=== PATIENT | male | born 1955 | race Caucasian/White ===

== ENCOUNTER 2016-10-27 08:01 | Inpatient (IN) | payer BC, MEDICARE ==
[2016-10-27] MEDS ORDERED: Albuterol/Ipratropium 3.0-0.5 MG/3 ML Neb Soln ONE (09:43)
[2016-10-27] MEDS ORDERED: Sodium Chloride 0.9% 10 ML Syringe FLUSH PRN (10:14)
[2016-10-27] MEDS: methylPREDNISolone Sodium Succinate 125 MG/2 ML SDV IVPUSH SCH (10:54)
[2016-10-27] MEDS: cefTRIAXone 1 GM Vial IVPUSH SCH (11:02)
[2016-10-27] MEDS: Azithromycin 500 MG in Sodium Chloride 0.9% 250 ML IV SCH (11:04)
[2016-10-27] MEDS ORDERED: Meclizine 12.5 MG Tab PO PRN (13:09)
[2016-10-27] MEDS ORDERED: Acetaminophen/oxyCODONE 325-5 MG Tab PO PRN (13:09)
[2016-10-27] MEDS ORDERED: Albuterol 8 GM Inhaler INH PRN (13:15)
[2016-10-27] MEDS: Albuterol/Ipratropium 3.0-0.5 MG/3 ML Neb Soln NEB SCH ×3 (13:34→20:40)
[2016-10-27] MEDS ORDERED: Insulin Aspart 100 Units/ML 3 ML Pen SUBCUT ONE ×2 (17:53→20:26)
[2016-10-27] MEDS: POTASSIUM CHL PO SCH (18:14)
[2016-10-27] MEDS: Insuln Aspart Prot/Insulin Aspart 100 Units/ML 3 ML FlexPen SUBCUT SCH (18:16)
[2016-10-27] MEDS: Simvastatin 20 MG Tab PO SCH (20:00)
[2016-10-27] MEDS: Pramipexole 0.5 MG Tab PO SCH (20:06)
[2016-10-27] MEDS: Metoprolol Succinate 25 MG Tab.ER PO SCH (20:06)
[2016-10-27] MEDS: Insulin Aspart 100 Units/ML 3 ML Pen SUBCUT SCH (20:37)
[2016-10-27] MEDS: Acetaminophen 325 MG Tab PO PRN (22:19)
[2016-10-28] MEDS: Acetaminophen 325 MG Tab PO PRN (06:16)
[2016-10-28] MEDS ORDERED: METOLAZONE 2.5 MG PO SCH (07:30)
[2016-10-28] MEDS: Insuln Aspart Prot/Insulin Aspart 100 Units/ML 3 ML FlexPen SUBCUT SCH ×2 (07:46→17:50)
[2016-10-28] MEDS: Aspirin 325 MG Tab.EC PO SCH (07:52)
[2016-10-28] MEDS: Amiodarone 200 MG Tab PO SCH (07:52)
[2016-10-28] MEDS: POTASSIUM CHL PO SCH (07:52)
[2016-10-28] MEDS: Metoprolol Succinate 25 MG Tab.ER PO SCH ×2 (07:52→19:25)
[2016-10-28] MEDS ORDERED: BUMETANIDE 2 MG PO SCH ×2 (08:00)
[2016-10-28] MEDS ORDERED: CANDESARTAN 8 MG PO SCH (08:00)
[2016-10-28] MEDS ORDERED: metFORMIN 500 MG Tab PO SCH (08:00)
[2016-10-28] MEDS: methylPREDNISolone Sodium Succinate 125 MG/2 ML SDV IVPUSH SCH (08:02)
[2016-10-28] MEDS: cefTRIAXone 1 GM Vial IVPUSH SCH (08:03)
[2016-10-28] MEDS: Azithromycin 500 MG in Sodium Chloride 0.9% 250 ML IV SCH (08:16)
[2016-10-28] MEDS ORDERED: Insulin Aspart 100 Units/ML 3 ML Pen SUBCUT ONE ×4 (08:32→20:41)
--- NOTE | 2016-10-28 08:53 | PCM.PN ---
- General Info Date of Service: 10/28/16 Admission Dx/Problem (Free Text): Bronchitis Functional Status: Reports: pain controlled - Review of Systems General: Reports: fever, fatigue, malaise. Denies: weakness HEENT: Denies: ear pain, sinus congestion, rhinitis Pulmonary: Reports: shortness of breath, cough, wheezing Cardiovascular: Reports: edema. Denies: chest pain, lightheadedness Gastrointestinal: Denies: Abdominal pain, Constipation, Diarrhea, Nausea, Vomiting Genitourinary: Reports: no symptoms Musculoskeletal: Reports: leg pain Skin: Reports: no symptoms Neurological: Reports: no symptoms - Patient Data Vitals - most recent: Last Vital Signs Temp 98 F 10/28/16 07:32 Pulse 57 L 10/28/16 07:52 Resp 20 10/28/16 07:32 BP 136/77 10/28/16 07:52 Pulse Ox 93 L 10/28/16 07:32 Weight - most recent: 325 lb 9.964 oz I&O - last 24 hours: Intake & Output 10/27/16 10/28/16 10/28/16 22:59 06:59 14:59 Intake Total 1882 1550 Output Total 4000 2500 Balance -2118 -950 Lab Results last 24 hrs: Laboratory Results - last 24 hr 10/27/16 10/27/16 10/27/16 Range/Units 09:50 11:55 16:00 PT (9.7-12.3) SEC INR (0.92-1.18) D-Dimer, Quantitative 0.33 (0.00-0.50) POC Glucose 217 H (75-105) mg/dl Lactate Dehydrogenase (100-190) U/L Creatine Kinase 428 H (35-232) U/L Troponin I 0.066 H (0.00-0.06) ng/mL 10/27/16 10/27/16 10/28/16 Range/Units 17:28 20:13 07:25 PT (9.7-12.3) SEC INR (0.92-1.18) D-Dimer, Quantitative (0.00-0.50) POC Glucose > 500 H* > 500 H* (75-105) mg/dl Lactate Dehydrogenase 299 H (100-190) U/L Creatine Kinase 558 H (35-232) U/L Troponin I 0.114 H (0.00-0.06) ng/mL 10/28/16 10/28/16 Range/Units 07:25 07:30 PT 19.8 H (9.7-12.3) SEC INR 1.84 H (0.92-1.18) D-Dimer, Quantitative (0.00-0.50) POC Glucose 424 H* (75-105) mg/dl Lactate Dehydrogenase (100-190) U/L Creatine Kinase (35-232) U/L Troponin I (0.00-0.06) ng/mL Elijah Results last 24 hrs: Microbiology 10/27/16 13:25 Gram Stain - Final Sputum - Expectorated 10/27/16 08:08 Influenza Type A Antigen Screen - Final Nasal, Unspecified NEGATIVE INFLUENZA A VIRUS AG Influenza Type B Antigen Screen - Final NEGATIVE INFLUENZA B VIRUS AG Med Orders - Current: Current Medications Acetaminophen (Tylenol) 650 mg PO Q4H PRN PRN Reason: Pain (Mild 1-3)/fever Last Admin: 10/28/16 06:16 Dose: 650 mg Albuterol (Ventolin Hfa) 0 gm INH Q6H PRN PRN Reason: DYSPNEA Albuterol/Ipratropium (Duoneb 3.0-0.5 Mg/3 Ml) 3 ml NEB QIDRT [facility] [place] Last Admin: 10/27/16 20:40 Dose: 3 ml Amiodarone HCl (Cordarone) 200 mg PO DAILY [facility] [place] Last Admin: 10/28/16 07:52 Dose: 200 mg Aspirin (Ecotrin) 325 mg PO DAILY [facility] [place] Last Admin: 10/28/16 07:52 Dose: 325 mg Ceftriaxone Sodium (Rocephin) 1 gm IVPUSH Q24H [facility] [place] Last Admin: 10/28/16 08:03 Dose: 1 gm Azithromycin 500 mg/ Sodium (Chloride) 250 mls @ 250 mls/hr IV Q24H [facility] [place] Last Admin: 10/28/16 08:16 Dose: 250 mls/hr Insulin Aspart (Novolog Mix 70-30) 30 - 35 unit SUBCUT WITHDINNER [facility] [place] Last Admin: 10/27/16 18:16 Dose: 35 unit Insulin Aspart (Novolog Mix 70-30) 60 - 65 unit SUBCUT WITHBREAKFAST [facility] [place] Last Admin: 10/28/16 07:46 Dose: 65 units Insulin Aspart (Novolog) 0 unit SUBCUT WITHMEALSANDBED [facility] [place] PRN Reason: Protocol Last Admin: 10/27/16 20:37 Dose: Not Given Meclizine HCl (Antivert) 25 mg PO QID PRN PRN Reason: Dizziness Metformin HCl (Glucophage) 1,000 mg PO DAILY [facility] [place] Last Admin: 10/28/16 07:52 Dose: 1,000 mg Methylprednisolone Sodium Succinate (Solu-Medrol) 62.5 mg IVPUSH Q24H [facility] [place] Last Admin: 10/28/16 08:02 Dose: 62.5 mg Metoprolol Succinate (Toprol Xl) 12.5 mg PO QAM [facility] [place] Last Admin: 10/28/16 07:52 Dose: 12.5 mg Metoprolol Succinate (Toprol Xl) 25 mg PO BEDTIME [facility] [place] Last Admin: 10/27/16 20:06 Dose: 25 mg Ptom-Candesartan 8mg (Tab) 0 mg PO DAILY [facility] [place] Last Admin: 10/28/16 07:52 Dose: 4 mg Potassium Chl Er (20meq Tab) 40 meq PO BIDMEALS [facility] [place] Last Admin: 10/28/16 07:52 Dose: 40 meq [facility] ([facility]) [facility] Ptom-Warfarin 7.5mg (Tab) 1 each PO SUSA [facility] [place] Oxycodone/Acetaminophen (Percocet 325-5 Mg) 1 tab PO Q6H PRN PRN Reason: Pain Pramipexole Dihydrochloride (Mirapex) 3 mg PO BEDTIME [facility] [place] Last Admin: 10/27/16 20:06 Dose: 3 mg Simvastatin (Zocor) 20 mg PO BEDTIME [facility] [place] Last Admin: 10/27/16 20:00 Dose: 20 mg Sodium Chloride (Saline Flush) 10 ml FLUSH ASDIRECTED PRN PRN Reason: Keep Vein Open Discontinued Medications Albuterol/Ipratropium (Duoneb 3.0-0.5 Mg/3 Ml) Confirm Administered Dose 3 ml .ROUTE .STK-MED ONE Stop: 10/27/16 09:44 Last Admin: 10/27/16 10:00 Dose: 3 ml Insulin Aspart (Novolog) 8 unit SUBCUT ONETIME ONE Stop: 10/27/16 17:54 Last Admin: 10/27/16 18:16 Dose: 8 unit Insulin Aspart (Novolog) 15 unit SUBCUT ONETIME ONE Stop: 10/27/16 20:27 Last Admin: 10/27/16 20:38 Dose: 15 units Insulin Aspart (Novolog) 4 unit SUBCUT ONETIME ONE Stop: 10/28/16 08:33 - Exam General: alert, oriented HEENT: Mucous membr. moist/pink Neck: supple Lungs: Decreased breath sounds, Rhonchi, Wheezing Abdomen: bowel sounds present, soft, no tenderness Skin: warm, dry Neurological: no new focal deficit - Problem List & Annotations (1) Bronchitis SNOMED Code(s): 09884900 Code(s): J40 - BRONCHITIS, NOT SPECIFIED ACUTE OR CHRONIC Status: Acute Priority: High Current Visit: No Onset Date: 01/02/16 Annotation/ Comment:: continued sx - Problem List Review Problem List Initiated/Reviewed/Updated: Yes - My Orders Last 24 Hours: My Active Orders 10/28/16 08:30 EKG 12 Lead [EK] Routine - Assessment Assessment:: Bronchitis - Plan Plan:: Patient's states is feeling somewhat better today. Better air movement today. Oxygen sats still continue to drop with ambulation. Patient does continue to have congested cough and audible wheezing. Blood sugars are high, on Solu Medrol daily. Is currently on medium scale insulin per sliding scale in addition to scheduled insulin. Troponins indeterminate. Will obtain EKG this am. Adjust sliding scale to high dose. Change to inpatient status due to ongoing hypoxia and chest congestion. Continue IV antibiotics, steroids, respiratory treatments. Reevaluate in am.
[2016-10-28] MEDS: Albuterol/Ipratropium 3.0-0.5 MG/3 ML Neb Soln NEB SCH ×4 (09:19→20:45)
[2016-10-28] MEDS: Insulin Aspart 100 Units/ML 3 ML Pen SUBCUT SCH ×4 (09:36→20:45)
[2016-10-28] MEDS: Bumetanide 1 MG Tab PO SCH ×2 (10:07→16:32)
[2016-10-28] MEDS: Warfarin 5 MG Tab PO SCH (11:59)
[2016-10-28] MEDS ORDERED: WARFARIN 10 MG PO SCH (12:00)
[2016-10-28] MEDS: Potassium Chloride 10 MEQ Tab.ER PO SCH (17:35)
[2016-10-28] MEDS: Pramipexole 0.5 MG Tab PO SCH (19:23)
[2016-10-28] MEDS: Simvastatin 20 MG Tab PO SCH (19:25)
[2016-10-29] MEDS ORDERED: Losartan 25 MG Tab PO SCH (08:00)
[2016-10-29] MEDS ORDERED: metFORMIN 500 MG Tab.ER PO SCH (08:00)
[2016-10-29] MEDS: Bumetanide 1 MG Tab PO SCH ×2 (08:10→16:43)
[2016-10-29] MEDS: Aspirin 325 MG Tab.EC PO SCH (08:11)
[2016-10-29] MEDS: Metoprolol Succinate 25 MG Tab.ER PO SCH (08:11)
[2016-10-29] MEDS: Amiodarone 200 MG Tab PO SCH (08:12)
[2016-10-29] MEDS: Potassium Chloride 10 MEQ Tab.ER PO SCH ×2 (08:12→16:43)
[2016-10-29] MEDS: cefTRIAXone 1 GM Vial IVPUSH SCH (08:13)
[2016-10-29] MEDS: methylPREDNISolone Sodium Succinate 125 MG/2 ML SDV IVPUSH SCH (08:13)
[2016-10-29] MEDS: Insulin Aspart 100 Units/ML 3 ML Pen SUBCUT SCH ×2 (08:16→12:12)
[2016-10-29] MEDS: Insuln Aspart Prot/Insulin Aspart 100 Units/ML 3 ML FlexPen SUBCUT SCH (08:17)
[2016-10-29] MEDS: Azithromycin 500 MG in Sodium Chloride 0.9% 250 ML IV SCH (08:20)
[2016-10-29] MEDS: Albuterol/Ipratropium 3.0-0.5 MG/3 ML Neb Soln NEB SCH ×3 (09:18→16:09)
[2016-10-29] MEDS: Warfarin 5 MG Tab PO SCH (12:13)
[2016-10-29 16:08] VITALS: BP 127/76
[2016-10-30] MEDS ORDERED: Metolazone 5 MG Tab PO SCH (07:30)
[2016-10-30] MEDS ORDERED: METOLAZONE 2.5 MG PO SCH (07:30)
--- NOTE | 2016-10-30 07:55 | PCM.DCSUM1 ---
Discharge Summary - Hospital Course Free Text/Narrative:: Patient admitted by Adeola Emiliano with Bronchitis. Lung sounds did have considerable rhonchi and wheezing on admission. Oxygen saturation in the low 80s on room air. Does not typically use oxygen at home although admits he does have shortness of breath with exertion related to his CHF. Initial lab work showed a WBC of 6.6, CRP of 0.9. D-dimer was negative. Troponin negative. Chest xray did show pulmonary congestion. Admitted and started on IV Rocephin, Solu Medrol and nebulizer treatments. - Discharge Data Discharge Date: 10/29/16 Discharge Disposition: Home, Self-Care 01 Condition: Fair - Discharge Diagnosis/Problem(s) (1) Bronchitis SNOMED Code(s): 91647571 ICD Code: J40 - BRONCHITIS, NOT SPECIFIED ACUTE OR CHRONIC Status: Acute Priority: High Onset Date: 01/02/16 Problem Details: continued sx - Patient Summary/Data Complications: none Hospital Course: Patient did have good overall improvement of his lungs during admission. Cardiac work up stable, troponin indeterminate. Tolerating activity. Able to wean off oxygen today. Lung sound now show fine wheezing, no rhonchi, much better air movement. Blood sugars were a concern during hospitalization due to steroids. Was given additional Novolog by sliding scale. Will send him home on Ceftin and 3 more days of prednisone. - Patient Instructions Diet: Low Sodium, Diabetic Diet Activity: As Tolerated - Discharge Plan Prescriptions/Med Rec: predniSONE [Prednisone] 20 mg PO DAILY #6 tablet Home Medications: Home Meds Pramipexole Di-HCl [Mirapex ER] 3 mg PO BEDTIME 12/22/13 [History] Simvastatin [Zocor] 20 mg PO DAILY 12/22/13 [History] Potassium Chloride 40 meq PO BID 02/01/14 [History] Aspirin 325 mg PO DAILY 04/04/14 [History] Amiodarone [Cordarone] 200 mg PO DAILY 12/19/14 [History] Warfarin [Coumadin] 7.5 mg PO SUSA 12/19/14 [History] Warfarin [Coumadin] 10 mg PO MOTUWETHFR 12/19/14 [History] Bumetanide [Bumex] 4 mg PO BID 01/26/15 [History] Candesartan [Atacand] 4 mg PO DAILY 01/26/15 [History] Albuterol Sulfate [Proair Hfa] 2 puff INH Q6H 11/24/15 [History] Metolazone [Zaroxolyn] 2.5 mg PO Q72H 11/24/15 [History] Metoprolol Succinate [Toprol XL] 12.5 mg PO QAM 11/24/15 [History] Metoprolol Succinate [Toprol XL] 25 mg PO BEDTIME 11/24/15 [History] oxyCODONE HCl/Acetaminophen [oxyCODONE-Acetaminophen 5-325] 1 tab PO Q6H PRN 11/05 [History] Cefuroxime [Ceftin] 500 mg PO BID 10/27/16 [History] Insuln Asp Prot/Insulin Aspart [NovoLOG Mix 70-30] 30 - 35 units SUBCUT WITHDINNER 10/27/16 [History] Insuln Asp Prot/Insulin Aspart [NovoLOG Mix 70-30] 60 - 65 units SUBCUT WITHBREAKFAST 10/27/16 [History] Meclizine [Antivert] 25 mg PO QID PRN 10/27/16 [History] metFORMIN HCl [Metformin HCl] 1,000 mg PO DAILY 10/27/16 [History] predniSONE [Prednisone] 20 mg PO DAILY #6 tablet 10/29/16 [Rx] Referrals: Elmer Pandey MD [ED Physician] - (Follow up with Dr. Pandey in 1 week.) - Discharge Summary/Plan Comment DC Time >30 min.: No Discharge Summary/Plan Comment: Discharged home on Ceftin. Prednisone 20 mg 2 tabs daily for 3 more days. Will need to increase his insulin at home as well based on his blood sugars. He will follow up with Dr. Pandey in a week. - General Info Date of Service: 10/29/16 Admission Dx/Problem (Free Text: Bronchitis Functional Status: Reports: pain controlled, tolerating diet, ambulating - Review of Systems General: Reports: fatigue. Denies: fever, weakness HEENT: Denies: ear pain, sinus congestion, sore throat, rhinitis Pulmonary: Reports: shortness of breath, cough, wheezing Cardiovascular: Reports: edema. Denies: chest pain, lightheadedness Gastrointestinal: Denies: Abdominal pain, Diarrhea, Nausea, Vomiting Genitourinary: Reports: no symptoms Musculoskeletal: Reports: back pain Skin: Reports: no symptoms Neurological: Reports: other (neuropathy in feet but stable and chronic) - Patient Data Vitals - Most Recent: Last Vital Signs Temp 97.1 F 10/29/16 16:00 Pulse 74 10/29/16 16:00 Resp 20 10/29/16 16:00 BP 127/76 10/29/16 16:00 Pulse Ox 96 10/29/16 16:00 Weight - Most Recent: 324 lb 4.48 oz Lab Results - Last 24 hrs: Laboratory Results - last 24 hr 10/29/16 10/29/16 Range/Units 07:47 12:00 PT 24.6 H (9.7-12.3) SEC INR 2.28 H (0.92-1.18) POC Glucose 401 H* (75-105) mg/dl PASCALE Results - Last 24 hrs: Microbiology 10/27/16 13:25 Gram Stain - Final Sputum - Expectorated Sputum Culture - Final Med Orders - Current: Current Medications Discontinued Medications Acetaminophen (Tylenol) 650 mg PO Q4H PRN PRN Reason: Pain (Mild 1-3)/fever Last Admin: 10/28/16 06:16 Dose: 650 mg Albuterol (Ventolin Hfa) 0 gm INH Q6H PRN PRN Reason: DYSPNEA Albuterol/Ipratropium (Duoneb 3.0-0.5 Mg/3 Ml) Confirm Administered Dose 3 ml .ROUTE .STK-MED ONE Stop: 10/27/16 09:44 Last Admin: 10/27/16 10:00 Dose: 3 ml Albuterol/Ipratropium (Duoneb 3.0-0.5 Mg/3 Ml) 3 ml NEB QIDRT [facility] Last Admin: 10/29/16 16:09 Dose: 3 ml Amiodarone HCl (Cordarone) 200 mg PO DAILY [facility] Last Admin: 10/29/16 08:12 Dose: 200 mg Aspirin (Ecotrin) 325 mg PO DAILY [facility] Last Admin: 10/29/16 08:11 Dose: 325 mg Bumetanide (Bumex) 4 mg PO BIDDIURETIC [facility] Last Admin: 10/29/16 16:43 Dose: 4 mg Ceftriaxone Sodium (Rocephin) 1 gm IVPUSH Q24H [facility] Last Admin: 10/29/16 08:13 Dose: 1 gm Azithromycin 500 mg/ Sodium (Chloride) 250 mls @ 250 mls/hr IV Q24H [facility] Last Admin: 10/29/16 08:20 Dose: 250 mls/hr Insulin Aspart (Novolog Mix 70-30) 30 - 35 unit SUBCUT WITHDINNER [facility] Last Admin: 10/28/16 17:50 Dose: 35 unit Insulin Aspart (Novolog Mix 70-30) 60 - 65 unit SUBCUT WITHBREAKFAST [facility] Last Admin: 10/29/16 08:17 Dose: 65 units Insulin Aspart (Novolog) 0 unit SUBCUT WITHMEALSANDBED [facility] PRN Reason: Protocol Last Admin: 10/29/16 12:12 Dose: 15 units Insulin Aspart (Novolog) 8 unit SUBCUT ONETIME ONE Stop: 10/27/16 17:54 Last Admin: 10/27/16 18:16 Dose: 8 unit Insulin Aspart (Novolog) 15 unit SUBCUT ONETIME ONE Stop: 10/27/16 20:27 Last Admin: 10/27/16 20:38 Dose: 15 units Insulin Aspart (Novolog) 4 unit SUBCUT ONETIME ONE Stop: 10/28/16 08:33 Last Admin: 10/28/16 09:37 Dose: 4 units Insulin Aspart (Novolog) 15 unit SUBCUT ONETIME ONE Stop: 10/28/16 11:56 Last Admin: 10/28/16 11:58 Dose: 15 units Insulin Aspart (Novolog) 20 unit SUBCUT ONETIME ONE Stop: 10/28/16 17:44 Last Admin: 10/28/16 17:51 Dose: 20 unit Insulin Aspart (Novolog) 15 unit SUBCUT ONETIME ONE Stop: 10/28/16 20:42 Last Admin: 10/28/16 20:51 Dose: 15 units Losartan Potassium (Cozaar) 25 mg PO DAILY [facility] Last Admin: 10/29/16 08:12 Dose: 25 mg Meclizine HCl (Antivert) 25 mg PO QID PRN PRN Reason: Dizziness Metformin HCl (Glucophage) 1,000 mg PO DAILY [facility] Last Admin: 10/28/16 07:52 Dose: 1,000 mg Metformin HCl (Glucophage Xr) 1,000 mg PO DAILY [facility] Last Admin: 10/29/16 08:10 Dose: 1,000 mg Methylprednisolone Sodium Succinate (Solu-Medrol) 62.5 mg IVPUSH Q24H [facility] Last Admin: 10/29/16 08:13 Dose: 62.5 mg Metolazone (Zaroxolyn) 2.5 mg PO [id number] [facility] Metoprolol Succinate (Toprol Xl) 12.5 mg PO QAM [facility] Last Admin: 10/29/16 08:11 Dose: 12.5 mg Metoprolol Succinate (Toprol Xl) 25 mg PO BEDTIME [facility] Last Admin: 10/28/16 19:25 Dose: 25 mg Ptom-Candesartan 8mg (Tab) 0 mg PO DAILY [facility] Last Admin: 10/28/16 07:52 Dose: 4 mg Potassium Chl Er (20meq Tab) 40 meq PO BIDMEALS [facility] Last Admin: 10/28/16 07:52 Dose: 40 meq Ptom-Warfarin 10mg (Tab) 10 mg PO MOTUWETHFR [facility] Last Admin: 10/28/16 11:59 Dose: 10 mg Ptom-Warfarin 7.5mg (Tab) 1 each PO SUSA [facility] Bumetanide 2mg Tab 4 mg PO BIDDIURETIC [facility] Last Admin: 10/28/16 09:35 Dose: 4 mg Ptom-Metolazone 2. (5mg) 1 tab PO [id number] [facility] Oxycodone/Acetaminophen (Percocet 325-5 Mg) 1 tab PO Q6H PRN PRN Reason: Pain Potassium Chloride (Klor-Con 10) 40 meq PO BIDMEALS [facility] Last Admin: 10/29/16 16:43 Dose: 40 meq Pramipexole Dihydrochloride (Mirapex) 3 mg PO BEDTIME [facility] Last Admin: 10/28/16 19:23 Dose: 3 mg Simvastatin (Zocor) 20 mg PO BEDTIME [facility] Last Admin: 10/28/16 19:25 Dose: 20 mg Sodium Chloride (Saline Flush) 10 ml FLUSH ASDIRECTED PRN PRN Reason: Keep Vein Open Warfarin Sodium (Coumadin) 7.5 mg PO SUSA [facility] Warfarin Sodium (Coumadin) 10 mg PO MOTUWETHFR [facility] Last Admin: 10/29/16 12:13 Dose: 10 mg - Exam General: Reports: alert, oriented HEENT: Reports: Mucous membr. moist/pink Neck: Reports: supple Lungs: Reports: Decreased breath sounds, Wheezing Cardiovascular: Reports: irregular rhythm, murmurs Abdomen: Reports: bowel sounds present, soft, no tenderness Extremities: Reports: edema (1+) Skin: Reports: warm, dry Neurological: Reports: no new focal deficit *Q Meaningful Use (DIS) - VTE *Q VTE Criteria *Q: - Stroke *Q Stroke Criteria *Q: - AMI *Q AMI Criteria *Q:
[2016-10-31] MEDS ORDERED: Warfarin 2.5 MG Tab PO SCH (12:00)
[2016-10-31] MEDS ORDERED: WARFARIN 7.5 MG PO SCH (12:00)
== END 2016-10-29 17:42 | disposition home or self-care (01) | DRG 144 ==
LOC: CC.MS 08:01 → CC.FCMC 08:01 → CC.MS 08:31 → UNDOADMOB 09:10 → CC.MS 09:10 → OBSVTOIN 10-28 08:31
PROVIDERS: ADMIT Physician Assistant Medical; ATTEND Family Medicine
DX: J40 Bronchitis, not specified as acute or chronic (principal); I50.9 Heart failure, unspecified; R60.9 Edema, unspecified; R09.02 Hypoxemia; I11.0 Hypertensive heart disease with heart failure; E11.9 Type 2 diabetes mellitus without complications; Z79.82 Long term (current) use of aspirin; Z79.01 Long term (current) use of anticoagulants; Z79.84 Long term (current) use of oral hypoglycemic drugs; Z79.899 Other long term (current) drug therapy; Z51.81 Encounter for therapeutic drug level monitoring; E78.5 Hyperlipidemia, unspecified; Z79.4 Long term (current) use of insulin; Z85.46 Personal history of malignant neoplasm of prostate; Z96.649 Presence of unspecified artificial hip joint; Z86.79 Personal history of other diseases of the circulatory system
CPT/HCPCS: 36415; 71020; 80053; 81001; 82550; 82962; 83615; 83880; 84484; 85025; 85379; 85610; 86140; 87070; 87205; 87804; 93005; 94640; 94640-76; 94667; 94668; 96374; 96375; 96376; A9270-GY; G0378; J0456; J0696; J1815-GY; J2930; J7050

== ENCOUNTER 2017-09-16 17:01 | Emergency (ER) | payer BC ==
[2017-09-16 17:10] VITALS: BP 119/69
[2017-09-16] MEDS ORDERED: Silver Nitrate Applicator Each TOP ONE (17:34)
--- NOTE | 2017-09-16 17:42 | EDM.PDOC ---
ED HPI GENERAL MEDICAL PROBLEM - General Chief Complaint: ENT Problem Stated Complaint: BLOODY NOSE Time Seen by Provider: 09/16/17 17:15 Source of Information: Reports: Patient, Family History Limitations: Reports: No Limitations - History of Present Illness INITIAL COMMENTS - FREE TEXT/NARRATIVE: Patient presents to ED with with ongoing bloody nose this afternoon. States was sitting working when he noted his nose started to bleed. Plugged it with paper towels but as soon as he would remove them, large clots would come out and it would continue to bleed. He states he replaced the tissue several times. got home from work and he was bleeding over the sink. He is on coumadin. Had his INR checked on Wednesday as he has had nose bleeds off an on since Wednesday. Was high at 3.7 and was told to hold his coumadin for a day. He admits he has yet to take it as he continues to have issues with bleeding. Admits that he does have an URI and that the coughing has probably not helped the bleeding. 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) - Related Data Allergies Allergy/AdvReac Type Severity Reaction Status Date / Time No Known Allergies Allergy Verified 09/16/17 17:19 Home Meds: Home Meds Pramipexole Di-HCl [Mirapex ER] 3 mg PO BEDTIME 12/22/13 [History] Simvastatin [Zocor] 20 mg PO DAILY 12/22/13 [History] Aspirin 325 mg PO DAILY 04/04/14 [History] Amiodarone [Cordarone] 200 mg PO DAILY 12/19/14 [History] Warfarin [Coumadin] 7.5 mg PO SUSA 12/19/14 [History] Warfarin [Coumadin] 10 mg PO MOTUWETHFR 12/19/14 [History] Candesartan [Atacand] 4 mg PO DAILY 01/26/15 [History] Albuterol Sulfate [Proair Hfa] 2 puff INH Q6H 11/24/15 [History] Metoprolol Succinate [Toprol XL] 12.5 mg PO QAM 11/24/15 [History] Metoprolol Succinate [Toprol XL] 25 mg PO BEDTIME 04/03/16 [History] Insuln Asp Prot/Insulin Aspart [NovoLOG Mix 70-30] 30 - 35 units SUBCUT WITHDINNER 10/27/16 [History] Insuln Asp Prot/Insulin Aspart [NovoLOG Mix 70-30] 60 - 65 units SUBCUT WITHBREAKFAST 10/27/16 [History] metFORMIN HCl [Metformin HCl] 1,000 mg PO BID 10/27/16 [History] Liraglutide [Victoza] 0.6 mg SQ DAILY 07/07/17 [History] Past Medical History HEENT History: Reports: Cataract Cardiovascular History: Reports: High Cholesterol, Pacemaker Respiratory History: Reports: Bronchitis, Recurrent Genitourinary History: Reports: Acute Renal Failure Endocrine/Metabolic History: Reports: Diabetes, Type II Oncologic (Cancer) History: Reports: Bladder, Prostate Other Dermatologic History: CELLULITIS/BURSITIS OF RIGHT KNEE - Past Surgical History HEENT Surgical History: Reports: Detached Retina GI Surgical History: Reports: Cholecystectomy, Hernia Repair/Other Other Musculoskeletal Surgeries/Procedures:: ULNAR NERVES ON BOTH ARMS DONE, BACK SURGERIES Social & Family History - Family History Family Medical History: Noncontributory - Tobacco Use Smoking Status *Q: Never Smoker Second Hand Smoke Exposure: No - Caffeine Use Caffeine Use: Reports: None - Alcohol Use Days Per Week of Alcohol Use: 0 - Recreational Drug Use Recreational Drug Use: No - Living Situation & Occupation Living situation: Reports: , with Spouse Occupation: Retired ED ROS ENT - Review of Systems Review Of Systems: See Below Constitutional: Denies: Fever, Chills, Malaise, Weakness, Fatigue HEENT: Reports: Other (epstaxi) Respiratory: Reports: Shortness of Breath, Wheezing, Cough Cardiovascular: Reports: Edema. Denies: Chest Pain, Lightheadedness Endocrine: Reports: Fatigue GI/Abdominal: Reports: No Symptoms ED EXAM, ENT - Physical Exam Exam: See Below Exam Limited By: No Limitations General Appearance: Alert, WD/WN Nose: Other (Removed small amount of paper towel from right nare. Mucosa excoriated, fresh blood noted. Cleansed with q-tips, no active bleeding noted. Did cauterize 3 small areas with silver nitrate. Nasal tampon inserted. Patient tolerated well.) Respiratory/Chest: No Respiratory Distress, Crackles Cardiovascular: Regular Rate, Rhythm GI/Abdominal: Normal Bowel Sounds, Soft, Non-Tender Neurological: Alert, Oriented Course - Vital Signs Last Recorded V/S: Last Vital Signs Temp 99.1 F 09/16/17 17:08 Pulse 98 09/16/17 17:08 Resp 20 09/16/17 17:08 BP 119/69 09/16/17 17:08 Pulse Ox 91 L 09/16/17 17:08 - Orders/Labs/Meds Meds: Medications Discontinued Medications Generic Name Dose Route Start Last Admin Trade Name Freq PRN Reason Stop Dose Admin Silver Nitrate 3 each 09/16/17 17:34 09/16/17 17:38 Silver Nitrate TOP 09/16/17 17:35 3 each ONETIME ONE Administration Departure - Departure Time of Disposition: 17:40 Disposition: Home, Self-Care 01 Condition: Good Clinical Impression: Epistaxis - Discharge Information Referrals: Casey Cummings PA-C [Primary Care Provider] - Forms: ED Department Discharge Additional Instructions: 1. Keep nasal tampon intact until removal tomorrow 2. Avoid straining or lifting tonight 3. Have INR checked tomorrow~ hold coumadin until that time 4. Return if questions or further bleeding
== END 2017-09-16 17:47 | disposition home or self-care (01) ==
LOC: CC.ED 17:01
DX: R04.0 Epistaxis (principal); E11.9 Type 2 diabetes mellitus without complications; E78.00 Pure hypercholesterolemia, unspecified; Z79.82 Long term (current) use of aspirin; Z79.01 Long term (current) use of anticoagulants
CPT/HCPCS: 30901; 99283

== ENCOUNTER 2017-11-10 16:52 | Observation (INO) | payer BC ==
[2017-11-10] MEDS ORDERED: Diltiazem 100 MG in Sodium Chloride 0.9% 100 ML IV SCH (17:45)
--- NOTE | 2017-11-10 17:59 | EDM.PDOC ---
ED HPI GENERAL MEDICAL PROBLEM - General Chief Complaint: Cardiovascular Problem Stated Complaint: dizziness, irregular HR Time Seen by Provider: 11/10/17 17:28 Source of Information: Reports: Patient, Significant Other History Limitations: Reports: No Limitations - History of Present Illness INITIAL COMMENTS - FREE TEXT/NARRATIVE: Patient presents to ER for complaints of significant weakness, blurred vision and palpitations. Patient was just discharged from [facility] on Wednesday. Was hospitalized there atrial fib with RVR. Had previously been found to be hyperthyroid and felt it was related to his Amiodarone. Patient was taken off of that and Metoprolol was increased to 150 mg and was to start Cardizem oral. Inadvertently the patient has not taken that and is unsure why not as he thought he had taken the Rx to the pharmacy on Wednesday. At [facility], he did have an angiogram which was negative. Recent echo which showed 40 to 45% Ejection fraction. Troponins were elevated there but felt to be related to heart failure. They discontinued his Digoxin. Lasix was stopped and he was started on Bumex. Blood sugars have been running high, insulin adjustments were made. He was found there to have CHF exacerbation felt to be related to the a fib with RVR. Patient's heart rate on admit to [facility] was 140s, on discharge down to the 80s. Today, after feeling extreme weakness, he contacted the clinic and was advised to check his blood pressure and pulse. Heart rate at home was 140s. He did call down to [facility] and they advised him to come to the ER for further evaluation. Patient still feels short of breath more than his norm. No chest pain at present. Edema in the left leg is still much larger than normal, right leg has improved. He relates he was up about 30# over a month, now down 18# from being diuresed at [facility]. patient has been on Lovenox injections in addition to his Coumadin since discharge as INR was subtherapeutic. Onset: Today, Gradual Duration: Hour(s): Location: Reports: Chest Severity: Moderate Improves with: Reports: Rest Associated Symptoms: Reports: Shortness of Breath, Weakness. Denies: Chest Pain , Cough, Diaphoresis, Fever/Chills, Loss of Appetite, Nausea/Vomiting - Related Data Allergies Allergy/AdvReac Type Severity Reaction Status Date / Time amiodarone Allergy Other Verified 11/10/17 17:18 Home Meds: Home Meds Pramipexole Di-HCl [Mirapex ER] 3 mg PO BEDTIME 12/22/13 [History] Simvastatin [Zocor] 20 mg PO WITHDINNER 12/22/13 [History] Warfarin [Coumadin] 7.5 mg PO MOTUWETHFRSA 12/19/14 [History] Warfarin [Coumadin] 10 mg PO CLEANING 12/19/14 [History] Candesartan [Atacand] 4 mg PO DAILY 01/26/15 [History] Albuterol Sulfate [Proair Hfa] 2 puff INH Q6H 11/24/15 [History] Metoprolol Succinate [Toprol XL] 150 mg PO DAILY 11/24/15 [History] Insuln Asp Prot/Insulin Aspart [NovoLOG Mix 70-30] 30 units SUBCUT BEDTIME 10/27 [History] Insuln Asp Prot/Insulin Aspart [NovoLOG Mix 70-30] 56 - 60 units SUBCUT QAM 03/08 [History] metFORMIN HCl [Metformin HCl] 1,000 mg PO BID 10/27/16 [History] Liraglutide [Victoza] 1.8 mg SQ DAILY 07/07/17 [History] Aspirin [Halfprin] 81 mg PO DAILY 11/10/17 [History] Bumetanide [Bumex] 2 mg PO DAILY 11/10/17 [History] Diltiazem [Dilacor XR] 180 mg PO DAILY 11/10/17 [History] Enoxaparin [Lovenox] 144 mg SUBCUT BID 11/10/17 [History] Metolazone 2.5 mg PO DAILY 11/10/17 [History] Potassium Chloride 60 meq PO BID 11/10/17 [History] Past Medical History HEENT History: Reports: Cataract Cardiovascular History: Reports: High Cholesterol, Pacemaker Other Cardiovascular History: CHF Respiratory History: Reports: Bronchitis, Recurrent Other Respiratory History: Emphysema Genitourinary History: Reports: Acute Renal Failure Neurological History: Reports: Neuropathy, Diabetic Psychiatric History: Reports: Depression Endocrine/Metabolic History: Reports: Diabetes, Type II Oncologic (Cancer) History: Reports: Bladder, Prostate Other Dermatologic History: CELLULITIS/BURSITIS OF RIGHT KNEE - Past Surgical History HEENT Surgical History: Reports: Detached Retina GI Surgical History: Reports: Cholecystectomy, Hernia Repair/Other Other Musculoskeletal Surgeries/Procedures:: ULNAR NERVES ON BOTH ARMS DONE, BACK SURGERIES Social & Family History - Family History Family Medical History: Noncontributory - Tobacco Use Smoking Status *Q: Never Smoker Second Hand Smoke Exposure: No - Caffeine Use Caffeine Use: Reports: None - Alcohol Use Days Per Week of Alcohol Use: 0 - Recreational Drug Use Recreational Drug Use: No - Living Situation & Occupation Living situation: Reports: , with Spouse Occupation: Retired ED ROS GENERAL - Review of Systems Review Of Systems: See Below Constitutional: Reports: Malaise, Weakness, Fatigue, Weight Gain. Denies: Fever , Chills HEENT: Reports: No Symptoms Respiratory: Reports: Shortness of Breath. Denies: Cough Cardiovascular: Reports: Dyspnea on Exertion, Edema, Lightheadedness, Palpitations. Denies: Chest Pain, Syncope Endocrine: Reports: Fatigue GI/Abdominal: Reports: Diarrhea. Denies: Abdominal Pain, Black Stool, Bloody Stool, Nausea, Vomiting : Reports: No Symptoms Musculoskeletal: Reports: Back Pain, Joint Pain Skin: Reports: Erythema (to ower extremities) Neurological: Reports: No Symptoms ED EXAM, GENERAL - Physical Exam Exam: See Below Exam Limited By: No Limitations General Appearance: Alert, WD/WN, No Apparent Distress Ears: Normal External Exam, Normal TMs Nose: Normal Inspection, Normal Mucosa, No Blood Throat/Mouth: Normal Inspection, Normal Oropharynx Head: Normocephalic Neck: Normal Inspection, Supple, Non-Tender Respiratory/Chest: No Respiratory Distress, Decreased Breath Sounds Cardiovascular: Regular Rate, Rhythm, Tachycardia GI/Abdominal: Normal Bowel Sounds, Soft, Non-Tender Extremities: Other (3+ edema noted to LLE, 1+ to RLE) Neurological: Alert, Oriented Psychiatric: Normal Affect, Normal Mood Course - Vital Signs Last Recorded V/S: Last Vital Signs Temp 98.2 F 11/10/17 16:57 Pulse 138 H 11/10/17 20:00 Resp 20 11/10/17 20:00 BP 128/60 11/10/17 20:00 Pulse Ox 95 11/10/17 20:00 - Orders/Labs/Meds Orders: Active Orders 24 hr Category Date Time Status Diltiazem [Cardizem] 100 mg Med 11/10/17 17:45 Active Sodium Chloride 0.9% [Normal Saline] 100 ml IV TITRATE Medication Orders Diltiazem HCl 100 mg/ Sodium (Chloride) 100 mls @ 5 mls/hr IV TITRATE SOY; 5 MG /HR PRN Reason: Protocol Last Admin: 11/10/17 18:10 Dose: 5 mg/hr, 5 mls/hr Sodium Chloride (Sodium Chloride 0.45%) 1,000 mls @ 500 mls/hr IV ASDIRECTED SOY Last Admin: 11/10/17 18:50 Dose: 500 mls/hr Labs: Laboratory Tests 11/10/17 11/10/17 11/10/17 Range/Units 17:11 17:11 17:11 WBC 5.7 (5.0-10.0) 10^3/uL RBC 4.76 (4.50-6.00) 10^6/uL Hgb 12.4 L (14.0-18.0) g/dL Hct 38.7 L (40.0-54.0) % MCV 81.3 L (82.0-94.0) fL MCH 26.1 L (27.0-32.0) pg MCHC 32.0 L (33.0-38.0) g/dL RDW Coeff of Teja 18.3 H (11.0-15.0) % Plt Count 215 (150-400) 10^3/uL Neut % (Auto) 75.9 (35-85) % Lymph % (Auto) 15.0 (10-55) % [place] % (Auto) 7.9 (0-16) % Eos % (Auto) 1.0 (0-5) % Baso % (Auto) 0.2 (0-3) % Neut # (Auto) 4.34 (1.80-7.00) 10^3/uL Lymph # (Auto) 0.86 L (1.00-4.80) 10^3/uL [place] # (Auto) 0.45 (0.00-0.80) 10^3/uL Eos # (Auto) 0.06 (0.00-0.45) 10^3/uL Baso # (Auto) 0.01 10^3/uL PT 15.7 H (9.7-12.3) SEC INR 1.56 H (0.92-1.18) APTT 34.3 H (24.5-30.9) SEC D-Dimer, Quantitative < 0.19 (0.00-0.50) Sodium 141 (136-145) mEq/L Potassium 3.3 L (3.5-5.0) mEq/L Chloride 101 (98-106) mEq/L Carbon Dioxide 30 (21-32) mmol/L BUN 39 H D (7-18) mg/dL Creatinine 1.7 H (0.7-1.3) mg/dL Est Cr Clr Drug Dosing 56.02 mL/min Estimated GFR (MDRD) 41 L (>=60) mL/min Glucose 106 H D (75-99) mg/dL Calcium 9.2 (8.4-10.1) mg/dL Total Bilirubin 0.5 (0.0-1.0) mg/dL AST 27 (15-37) U/L ALT 53 (12-78) U/L Alkaline Phosphatase 119 H (46-116) U/L Lactate Dehydrogenase 438 H (100-190) U/L Creatine Kinase 93 (35-232) U/L Troponin I 0.135 H (0.00-0.06) ng/mL NT-Pro-B Natriuret Pep 2284 H (0-1000) pg/mL Total Protein 6.6 (6.4-8.2) g/dL Albumin 3.0 L (3.4-5.0) g/dL Meds: Medications Generic Name Dose Route Start Last Admin Trade Name Freq PRN Reason Stop Dose Admin Diltiazem HCl 100 mg/ Sodium 100 mls @ 5 mls/hr 11/10/17 17:45 11/10/17 18:10 Chloride IV 5 mg/hr TITRATE SOY 5 mls/hr Protocol Administration 5 MG/HR Sodium Chloride 1,000 mls @ 500 mls/hr 11/10/17 18:45 11/10/17 18:50 Sodium Chloride 0.45% IV 500 mls/hr ASDIRECTED SOY Administration Discontinued Medications Generic Name Dose Route Start Last Admin Trade Name Freq PRN Reason Stop Dose Admin Adenosine 6 mg 11/10/17 18:34 11/10/17 18:55 Adenocard IVPUSH 11/10/17 18:35 6 mg NOW ONE Administration Adenosine Confirm 11/10/17 19:10 11/10/17 19:27 Adenocard Administered 11/10/17 19:11 Not Given Dose 6 mg .ROUTE .STK-MED ONE Adenosine Confirm 11/10/17 19:15 11/10/17 19:27 Adenocard Administered 11/10/17 19:16 Not Given Dose 12 mg .ROUTE .STK-MED ONE Adenosine 6 mg 11/10/17 18:58 11/10/17 19:29 Adenocard IVPUSH 11/10/17 18:59 Not Given NOW ONE Adenosine 12 mg 11/10/17 18:58 11/10/17 18:58 Adenocard IVPUSH 11/10/17 18:59 12 mg NOW ONE Administration - Re-Assessments/Exams Free Text/Narrative Re-Assessment/Exam: 11/10/17 1825 Cardizem was initiated but then stopped due to low blood pressure. Contacted us marketing director Dr. Prieto at [facility] for further recommendations. Suggested fluid bolus and then Adenosine. Did suggest could allow systolic blood pressure down to 85 as patient is tolerating well. Rhythm still shows 150 bpm. Did advise that if Adenosine did not work, could restart the Cardizem or consider digoxin. See nurses notes for times of Adenosine, given both 6 mg and 12 mg doses without any change. EKGs done during bolus doses. Patient tolerated well. Restarted Cardizem drip. Departure - Departure Time of Disposition: 17:54 Disposition: Refer to Observation Condition: Fair Clinical Impression: SVT (supraventricular tachycardia) - Problem List & Annotations (1) SVT (supraventricular tachycardia) SNOMED Code(s): 7860536 Code(s): I47.1 - SUPRAVENTRICULAR TACHYCARDIA Status: Acute Priority: High Current Visit: Yes - Problem List Review Problem List Initiated/Reviewed/Updated: Yes - My Orders Last 24 Hours: My Active Orders 11/10/17 17:45 Diltiazem [Cardizem] 100 mg Sodium Chloride 0.9% [Normal Saline] 100 ml IV TITRATE - Assessment/Plan Admission H&P: Please use this note as an admission H&P Last 24 Hours: My Active Orders 11/10/17 17:45 Diltiazem [Cardizem] 100 mg Sodium Chloride 0.9% [Normal Saline] 100 ml IV TITRATE Assessment:: SVT Plan: Patient admitted observation for SVT. IV Cardizem to control his rate. Continue his usual meds. Monitor blood sugars. Cardiac monitoring.
[2017-11-10] MEDS ORDERED: Adenosine 6 MG/2 ML SDV IVPUSH ONE ×3 (18:34→18:58)
[2017-11-10] MEDS ORDERED: Sodium Chloride 0.45% 1,000 ML IV SCH (18:45)
[2017-11-10] MEDS ORDERED: Adenosine 6 MG/2 ML SDV ONE ×2 (19:10→19:15)
[2017-11-10] MEDS ORDERED: Ondansetron 4 MG/2 ML SDV IV PRN (20:12)
[2017-11-10] MEDS ORDERED: ONDANSETRON 4 MG PO PRN (20:12)
[2017-11-10] MEDS ORDERED: Albuterol 8 GM Inhaler INH SCH (20:15)
[2017-11-10] MEDS ORDERED: Enoxaparin 80 MG/0.8 ML Syringe SUBCUT SCH (21:15)
[2017-11-10] MEDS: CARTIA XT 180 MG PO SCH (21:21)
[2017-11-10] MEDS: ENOXAPARIN 150 MG SUBCUT SCH (21:48)
[2017-11-11] MEDS ORDERED: Non-Formulary Medication 1 Each (Liraglutide [Victoza] 1.8 MG) SQ SCH (08:00)
[2017-11-11] MEDS: ENOXAPARIN 150 MG SUBCUT SCH ×2 (08:44→19:54)
[2017-11-11] MEDS: Insuln Aspart Prot/Insulin Aspart 100 Units/ML 3 ML FlexPen SUBCUT SCH (08:53)
[2017-11-11] MEDS: CANDESARTAN 8 MG PO SCH (09:40)
[2017-11-11] MEDS: METFORMIN HCL 1000 MG PO SCH ×2 (09:40→19:56)
[2017-11-11] MEDS: METOPROLOL SUCC 50 MG PO SCH (09:41)
[2017-11-11] MEDS: POTASSIUM CHLORIDE 60 MEQ PO SCH ×2 (09:41→19:55)
[2017-11-11] MEDS: BUMETANIDE 2 MG PO SCH (09:42)
[2017-11-11] MEDS: **PTOM** Aspirin 81 MG Tab.EC PO SCH (09:43)
[2017-11-11] MEDS: DILTIAZEM 180 MG PO SCH (09:44)
[2017-11-11] MEDS: WARFARIN 7.5 MG PO SCH ×2 (09:45→19:57)
[2017-11-11] MEDS: CARTIA XT 180 MG PO SCH (09:50)
[2017-11-11] MEDS: Acetaminophen 325 MG Tab PO PRN ×2 (16:15→23:59)
[2017-11-11] MEDS ORDERED: SIMVASTATIN 10 MG PO SCH (17:30)
[2017-11-11] MEDS ORDERED: Insuln Aspart Prot/Insulin Aspart 100 Units/ML 3 ML FlexPen SUBCUT SCH (20:00)
[2017-11-11] MEDS ORDERED: PRAMIPEXOLE DI HCL 1.5 MG PO SCH (20:00)
--- NOTE | 2017-11-11 21:23 | PCM.PN ---
- General Info Date of Service: 11/11/17 Admission Dx/Problem (Free Text): SVT Functional Status: Reports: Pain Controlled, Tolerating Diet. Denies: Ambulating - Review of Systems General: Reports: Weakness, Fatigue HEENT: Reports: No Symptoms Pulmonary: Reports: Shortness of Breath. Denies: Cough Cardiovascular: Reports: Edema, Lightheadedness. Denies: Chest Pain Gastrointestinal: Denies: Abdominal Pain, Nausea, Vomiting Genitourinary: Reports: No Symptoms Musculoskeletal: Reports: Back Pain Skin: Reports: Bruising Neurological: Reports: No Symptoms - Patient Data Vitals - Most Recent: Last Vital Signs Temp 97.2 F 11/11/17 20:00 Pulse 72 11/11/17 20:00 Resp 20 11/11/17 20:00 BP 106/48 L 11/11/17 20:00 Pulse Ox 91 L 11/11/17 20:00 Weight - Most Recent: 310 lb 1.6 oz Lab Results Last 24 Hours: Laboratory Results - last 24 hr 11/10/17 11/10/17 11/11/17 Range/Units 20:49 21:30 07:27 WBC (5.0-10.0) 10^3/uL RBC (4.50-6.00) 10^6/uL Hgb (14.0-18.0) g/dL Hct (40.0-54.0) % MCV (82.0-94.0) fL MCH (27.0-32.0) pg MCHC (33.0-38.0) g/dL RDW Coeff of Teja (11.0-15.0) % Plt Count (150-400) 10^3/uL Neut % (Auto) (35-85) % Lymph % (Auto) (10-55) % [place] % (Auto) (0-16) % Eos % (Auto) (0-5) % Baso % (Auto) (0-3) % Neut # (Auto) (1.80-7.00) 10^3/uL Lymph # (Auto) (1.00-4.80) 10^3/uL [place] # (Auto) (0.00-0.80) 10^3/uL Eos # (Auto) (0.00-0.45) 10^3/uL Baso # (Auto) 10^3/uL POC Glucose 171 H 164 H (75-105) mg/dl Troponin I 0.131 H (0.00-0.06) ng/mL 11/11/17 11/11/17 11/11/17 Range/Units 07:30 07:30 11:31 WBC 4.7 L (5.0-10.0) 10^3/uL RBC 4.45 L (4.50-6.00) 10^6/uL Hgb 11.4 L (14.0-18.0) g/dL Hct 36.7 L (40.0-54.0) % MCV 82.5 (82.0-94.0) fL MCH 25.6 L (27.0-32.0) pg MCHC 31.1 L (33.0-38.0) g/dL RDW Coeff of Teja 18.5 H (11.0-15.0) % Plt Count 193 (150-400) 10^3/uL Neut % (Auto) 69.6 (35-85) % Lymph % (Auto) 18.6 (10-55) % [place] % (Auto) 9.3 (0-16) % Eos % (Auto) 2.1 (0-5) % Baso % (Auto) 0.4 (0-3) % Neut # (Auto) 3.29 (1.80-7.00) 10^3/uL Lymph # (Auto) 0.88 L (1.00-4.80) 10^3/uL [place] # (Auto) 0.44 (0.00-0.80) 10^3/uL Eos # (Auto) 0.10 (0.00-0.45) 10^3/uL Baso # (Auto) 0.02 10^3/uL POC Glucose 305 H (75-105) mg/dl Troponin I 0.104 H (0.00-0.06) ng/mL 11/11/17 11/11/17 Range/Units 17:07 20:16 WBC (5.0-10.0) 10^3/uL RBC (4.50-6.00) 10^6/uL Hgb (14.0-18.0) g/dL Hct (40.0-54.0) % MCV (82.0-94.0) fL MCH (27.0-32.0) pg MCHC (33.0-38.0) g/dL RDW Coeff of Teja (11.0-15.0) % Plt Count (150-400) 10^3/uL Neut % (Auto) (35-85) % Lymph % (Auto) (10-55) % [place] % (Auto) (0-16) % Eos % (Auto) (0-5) % Baso % (Auto) (0-3) % Neut # (Auto) (1.80-7.00) 10^3/uL Lymph # (Auto) (1.00-4.80) 10^3/uL [place] # (Auto) (0.00-0.80) 10^3/uL Eos # (Auto) (0.00-0.45) 10^3/uL Baso # (Auto) 10^3/uL POC Glucose 197 H 262 H (75-105) mg/dl Troponin I (0.00-0.06) ng/mL Med Orders - Current: Current Medications Acetaminophen (Tylenol) 650 mg PO Q4H PRN PRN Reason: Pain (Mild 1-3)/fever Last Admin: 11/11/17 16:15 Dose: 650 mg Albuterol (Ventolin Hfa) gm INH Q6H SOY Aspirin (Halfprin) 81 mg PO DAILY [facility] Last Admin: 11/11/17 09:43 Dose: 81 mg Enoxaparin Sodium (Lovenox) 144 mg SUBCUT BID [facility] Last Admin: 11/11/17 19:54 Dose: 144 mg Diltiazem HCl 100 mg/ Sodium (Chloride) 100 mls @ 5 mls/hr IV TITRATE SOY; 5 MG /HR PRN Reason: Protocol Last Admin: 11/10/17 18:10 Dose: 5 mg/hr, 5 mls/hr Sodium Chloride (Sodium Chloride 0.45%) 1,000 mls @ 500 mls/hr IV ASDIRECTED [facility] Last Admin: 11/10/17 18:50 Dose: 500 mls/hr Insulin Aspart (Novolog Mix 70-30) 30 unit SUBCUT BEDTIME SOY Last Admin: 11/11/17 20:23 Dose: 30 unit Insulin Aspart (Novolog Mix 70-30) 56 - 60 unit SUBCUT QAM [facility] Last Admin: 11/11/17 08:53 Dose: 55 units Ptom Bumetanide ([Bumex] 2 Mg) 2 mg PO DAILY [facility] Last Admin: 11/11/17 09:42 Dose: 2 mg Ptom Candesartan ([Atacand] 8 Mg) 4 mg PO DAILY [facility] Last Admin: 11/11/17 09:40 Dose: 4 mg Ptom Diltiazem [ (Cartia Xt] 180 Mg) 180 mg PO DAILY [facility] Last Admin: 11/11/17 09:44 Dose: 180 mg Non-Formulary Medication (Liraglutide [Victoza]) 1.8 mg SQ DAILY [facility] Ptom Metformin Hcl [Metformin Hcl] 1,000 Mg 1,000 mg PO BID [facility] Last Admin: 11/11/17 19:56 Dose: 1,000 mg Ptom Metolazone ([Metolazone] 2.5 Mg) 2.5 mg PO DAILY@0730 [facility] Ptom Metoprolol (Succ 50 Mg Tab) 3 each PO DAILY [facility] Last Admin: 11/11/17 09:41 Dose: 3 each Ptom Potassium Chloride [Potassium Chloride] 60 Meq 60 meq PO BID [facility] Last Admin: 11/11/17 19:55 Dose: 60 meq Ptom Pramipexole Di-Hcl [Mirapex Er] 1.5 Mg 3 mg PO BEDTIME [facility] Last Admin: 11/11/17 19:55 Dose: 3 mg Ptom Warfarin 7. (5 Mg Tab) 1 each PO MOTUWETHFRSA [facility] Last Admin: 11/11/17 19:57 Dose: 1 each Ptom Warfarin 10 (Mg Tab) 10 mg PO [facility] Ondansetron HCl (Zofran Odt) 4 mg PO Q4H PRN PRN Reason: nausea, able to take PO Ondansetron HCl (Zofran) 4 mg IV Q4H PRN PRN Reason: Nausea/Vomiting Simvastatin (Zocor) 20 mg PO WITHDINNER [facility] Last Admin: 11/11/17 17:40 Dose: 20 mg Discontinued Medications Adenosine (Adenocard) 6 mg IVPUSH NOW ONE Stop: 03/21/18 18:35 Last Admin: 11/10/17 18:55 Dose: 6 mg Adenosine (Adenocard) Confirm Administered Dose 6 mg .ROUTE .STK-MED ONE Stop: 11/10/17 19:11 Last Admin: 11/10/17 19:27 Dose: Not Given Adenosine (Adenocard) Confirm Administered Dose 12 mg .ROUTE .STK-MED ONE Stop: 11/10/17 19:16 Last Admin: 11/10/17 19:27 Dose: Not Given Adenosine (Adenocard) 6 mg IVPUSH NOW ONE Stop: 11/10/17 18:59 Last Admin: 11/10/17 19:29 Dose: Not Given Adenosine (Adenocard) 12 mg IVPUSH NOW ONE Stop: 11/10/17 18:59 Last Admin: 11/10/17 18:58 Dose: 12 mg Enoxaparin Sodium (Lovenox) 144 mg SUBCUT BID [facility] Last Admin: 11/10/17 21:51 Dose: Not Given Cartia Xt 180 Mg* Pt (Own Med*) 0 each PO DAILY [facility] Last Admin: 11/11/17 09:50 Dose: Not Given - Exam Quality Assessment: Supplemental Oxygen General: Alert, Oriented HEENT: Mucous Membr. Moist/[place] Neck: Supple Lungs: Decreased Breath Sounds Cardiovascular: Irregular Rhythm GI/Abdominal Exam: Normal Bowel Sounds, Soft, Non-Tender Extremities: Pedal Edema (3+ LLE, 1+ RLE) Skin: Ecchymosis (ecchymosis scattered to arms, legs and abdomen) Wound/Incisions: Other (dressing noted to LLE, scant serous drainage noted) Psy/Mental Status: Alert, Normal Affect, Normal Mood - Problem List & Annotations (1) SVT (supraventricular tachycardia) SNOMED Code(s): 1638180 Code(s): I47.1 - SUPRAVENTRICULAR TACHYCARDIA Status: Acute Priority: High Current Visit: Yes - Problem List Review Problem List Initiated/Reviewed/Updated: Yes - My Orders Last 24 Hours: My Active Orders 11/10/17 20:30 Blood Glucose Check, Bedside [RC] QIDACANDBED 11/10/17 21:45 Enoxaparin [Lovenox] 144 mg SUBCUT BID 11/11/17 08:00 Aspirin [Halfprin] 81 mg PO DAILY Bumetanide [Bumex] 2 mg PO DAILY Candesartan [Atacand] 4 mg PO DAILY Diltiazem [Dilacor XR] 180 mg PO DAILY Insuln Asp Prot/Insulin Aspart [NovoLOG Mix 70-30] 56 - 60 unit SUBCUT QAM Liraglutide [Victoza] 1.8 mg SQ DAILY Non-Formulary Medication [NF Drug] 3 each PO DAILY Potassium Chloride [Potassium Chloride] 60 meq PO BID metFORMIN HCl [Metformin HCl] 1,000 mg PO BID 11/11/17 17:30 Simvastatin [Zocor] 20 mg PO WITHDINNER 11/11/17 20:00 Insuln Asp Prot/Insulin Aspart [NovoLOG Mix 70-30] 30 unit SUBCUT BEDTIME Pramipexole Di-HCl [Mirapex ER] 3 mg PO BEDTIME 11/12/17 05:11 BASIC METABOLIC PANEL,BMP [CHEM] AM C-REACTIVE PROTEIN [CHEM] AM CBC WITH AUTO DIFF [HEME] AM PRO B-TYPE NATRIUR PEPT,BNPPRO [CHEM] Routine 11/12/17 07:30 Metolazone [Metolazone] 2.5 mg PO DAILY@0730 11/14/17 20:09 Warfarin 10 mg PO CLEANING - Assessment Assessment:: Atrial Fib with RVR CHF - Plan Plan:: Patient states feeling better today. Heart rate has slowed down, noted to be in atrial fib now, rate at 107. Still feels short of breath but admits is chronic for him. He does have ongoing back pain as well. Still noted to have 3 + edema in his LLE, 1+ in his right, unchanged from admit. Cardizem drip stopped during the night, continue oral Cardizem and Metoprolol. Repeat labs in am. Possible discharge home if stable.
[2017-11-12 07:30] VITALS: BP 113/76
[2017-11-12] MEDS ORDERED: METOLAZONE 2.5 MG PO SCH (07:30)
[2017-11-12] MEDS: BUMETANIDE 2 MG PO SCH (07:45)
[2017-11-12] MEDS: **PTOM** Aspirin 81 MG Tab.EC PO SCH (07:46)
[2017-11-12] MEDS: DILTIAZEM 180 MG PO SCH (07:46)
[2017-11-12] MEDS: CANDESARTAN 8 MG PO SCH (07:46)
[2017-11-12] MEDS: METOPROLOL SUCC 50 MG PO SCH (07:47)
[2017-11-12] MEDS: METFORMIN HCL 1000 MG PO SCH (07:47)
[2017-11-12] MEDS: ENOXAPARIN 150 MG SUBCUT SCH (07:47)
[2017-11-12] MEDS: Insuln Aspart Prot/Insulin Aspart 100 Units/ML 3 ML FlexPen SUBCUT SCH (07:48)
[2017-11-12] MEDS: POTASSIUM CHLORIDE 60 MEQ PO SCH (07:48)
--- NOTE | 2017-11-14 13:59 | PCM.DCSUM1 ---
Discharge Summary - Hospital Course Free Text/Narrative:: Patient presented to ER with complaints of blurred vision, sudden onset weakness and dizziness. Had checked his heart rate and blood pressure at that time and noted tachycardia and a low blood pressure. Contacted [facility] and was advised to present to ER. Initial EKG noted SVT with rate of 150s, blood pressure stable on admission to ER. Patient had no chest pain, felt that heart was racing. Usual shortness of breath. Had recently been in [facility], was discharged home on Wednesday after multiple medication changes. He was taken off his digoxin. Lasix was switched to Bumex. Metoprolol increased to 150 mg. Did not start the Cardizem yet as it had not been delivered. Patient was started on Cardizem drip in ER but his blood pressure was low at [address] Prieto, sailboat captain at [place] who suggested Adenosine to slow down the rate and give IV fluid bolus to correct his blood pressure and can give Lasix IV if needed for any heart failure concerns. Was given Adenosine x2 without any notable change. Did advise to start the Cardizem drip and just keep blood systolic over 85 as patient is tolerating it well. Also started on his oral Cardizem on admit as well. Has had ablation x2 in the past, relates that with his recent stay they were advised that his right heart could not tolerate another ablation. Had an angiogram there which did not show any vessel concern. TERRELL showed 40-45% ejection fraction. Initial labs noted in the ER were negative for PE. Is currently on Lovenox BID as was subtherapeutic on his Coumadin. ProBNP 1549. Troponin indeterminate but were higher at [facility] recently - Discharge Data Discharge Date: 11/12/17 Discharge Disposition: Home, Self-Care 01 Condition: Fair - Discharge Diagnosis/Problem(s) (1) SVT (supraventricular tachycardia) SNOMED Code(s): 1209693 ICD Code: I47.1 - SUPRAVENTRICULAR TACHYCARDIA Status: Resolved Priority : High (2) Atrial fibrillation SNOMED Code(s): 75440194 ICD Code: I48.91 - UNSPECIFIED ATRIAL FIBRILLATION Status: Acute Priority : High Qualifiers: Atrial fibrillation type: persistent Qualified Code(s): I48.1 - Persistent atrial fibrillation - Patient Summary/Data Complications: none Hospital Course: Patient was able to be weaned off the Cardizem drip after about 6 hours, blood pressure had dropped and his heart rate was down to 90-108. Patient slowly felt better, less weak, less shortness of breath, more back to his usual state. Blood pressure maintain on his oral Cardizem. Labs stable. Blood sugars fair which is his norm. Edema continues, especially in LLE. Was initially up 30# at [facility], is down 18# of that. Weight varied here but ProBNP remained stable even after fluid bolus. Patient was noted to be in atrial fib once rate was slowed down, continues in persistent rhythm. Does follow up with cardiology on november 25. Will continue with all his medication changes from [facility]. Follow up with Ramesh Cummings in one week. - Patient Instructions Diet: Diabetic Diet Activity: As Tolerated - Discharge Plan Home Medications: Home Meds Pramipexole Di-HCl [Mirapex ER] 3 mg PO BEDTIME 12/22/13 [History] Simvastatin [Zocor] 20 mg PO WITHDINNER 12/22/13 [History] Warfarin [Coumadin] 7.5 mg PO MOTUWETHFRSA 12/19/14 [History] Warfarin [Coumadin] 10 mg PO CLEANING 12/19/14 [History] Candesartan [Atacand] 4 mg PO DAILY 01/26/15 [History] Albuterol Sulfate [Proair Hfa] 2 puff INH Q6H 11/24/15 [History] Metoprolol Succinate [Toprol XL] 150 mg PO DAILY 11/24/15 [History] Insuln Asp Prot/Insulin Aspart [NovoLOG Mix 70-30] 30 units SUBCUT BEDTIME 10/27 [History] Insuln Asp Prot/Insulin Aspart [NovoLOG Mix 70-30] 56 - 60 units SUBCUT QAM 03/08 [History] metFORMIN HCl [Metformin HCl] 1,000 mg PO BID 10/27/16 [History] Liraglutide [Victoza] 1.8 mg SQ DAILY 07/07/17 [History] Aspirin [Halfprin] 81 mg PO DAILY 11/10/17 [History] Bumetanide [Bumex] 2 mg PO DAILY 11/10/17 [History] Diltiazem [Dilacor XR] 180 mg PO DAILY 11/10/17 [History] Metolazone 2.5 mg PO DAILY 11/10/17 [History] Potassium Chloride 60 meq PO BID 11/10/17 [History] Patient Handouts: Atrial Fibrillation Forms: ED Department Discharge Referrals: Casey Cummings PA-C [Family Provider] - (Follow up with Ramesh Cummings next Wednesday. Keep scheduled appointment at [facility] as planned) - Discharge Summary/Plan Comment DC Time >30 min.: No Discharge Summary/Plan Comment: Discharge home Continue Cardizem 180 mg daily Metoprolol at 150 mg daily Bumex Potassium 60 meq daily Watch weight Monitor blood sugars See Ramesh Cummings in one week - General Info Date of Service: 11/12/17 Admission Dx/Problem (Free Text: SVT Functional Status: Reports: Pain Controlled, Tolerating Diet, Ambulating - Review of Systems General: Reports: Weakness, Fatigue. Denies: Fever HEENT: Reports: No Symptoms Pulmonary: Reports: Shortness of Breath. Denies: Cough Cardiovascular: Reports: Edema. Denies: Chest Pain, Lightheadedness Gastrointestinal: Denies: Abdominal Pain, Nausea, Vomiting Genitourinary: Reports: No Symptoms Musculoskeletal: Reports: Back Pain Skin: Reports: Pallor Neurological: Reports: No Symptoms - Patient Data Vitals - Most Recent: Last Vital Signs Temp 97.3 F 11/12/17 07:28 Pulse 79 11/12/17 07:28 Resp 21 H 11/12/17 07:28 BP 113/76 11/12/17 07:28 Pulse Ox 99 11/12/17 07:28 Weight - Most Recent: 310 lb 1.6 oz Med Orders - Current: Current Medications Discontinued Medications Acetaminophen (Tylenol) 650 mg PO Q4H PRN PRN Reason: Pain (Mild 1-3)/fever Last Admin: 11/11/17 23:59 Dose: 650 mg Adenosine (Adenocard) 6 mg IVPUSH NOW ONE Stop: 11/10/17 18:35 Last Admin: 11/10/17 18:55 Dose: 6 mg Adenosine (Adenocard) Confirm Administered Dose 6 mg .ROUTE .STK-MED ONE Stop: 11/10/17 19:11 Last Admin: 11/10/17 19:27 Dose: Not Given Adenosine (Adenocard) Confirm Administered Dose 12 mg .ROUTE .STK-MED ONE Stop: 11/10/17 19:16 Last Admin: 11/10/17 19:27 Dose: Not Given Adenosine (Adenocard) 6 mg IVPUSH NOW ONE Stop: 11/10/17 18:59 Last Admin: 11/10/17 19:29 Dose: Not Given Adenosine (Adenocard) 12 mg IVPUSH NOW ONE Stop: 11/10/17 18:59 Last Admin: 11/10/17 18:58 Dose: 12 mg Albuterol (Ventolin Hfa) gm INH Q6H [facility] Aspirin (Halfprin) 81 mg PO DAILY [facility] Last Admin: 11/12/17 07:46 Dose: 81 mg Enoxaparin Sodium (Lovenox) 144 mg SUBCUT BID [facility] Last Admin: 11/10/17 21:51 Dose: Not Given Enoxaparin Sodium (Lovenox) 144 mg SUBCUT BID [facility] Last Admin: 11/12/17 07:47 Dose: 144 mg Diltiazem HCl 100 mg/ Sodium (Chloride) 100 mls @ 5 mls/hr IV TITRATE SOY; 5 MG /HR PRN Reason: Protocol Last Admin: 11/10/17 18:10 Dose: 5 mg/hr, 5 mls/hr Sodium Chloride (Sodium Chloride 0.45%) 1,000 mls @ 500 mls/hr IV ASDIRECTED [facility] Last Admin: 11/10/17 18:50 Dose: 500 mls/hr Insulin Aspart (Novolog Mix 70-30) 30 unit SUBCUT BEDTIME [facility] Last Admin: 11/11/17 20:23 Dose: 30 unit Insulin Aspart (Novolog Mix 70-30) 56 - 60 unit SUBCUT QAM [facility] Last Admin: 11/12/17 07:48 Dose: 50 units Ptom Bumetanide ([Bumex] 2 Mg) 2 mg PO DAILY [facility] Last Admin: 11/12/17 07:45 Dose: 2 mg Ptom Candesartan ([Atacand] 8 Mg) 4 mg PO DAILY [facility] Last Admin: 11/12/17 07:46 Dose: 4 mg Ptom Diltiazem [ (Cartia Xt] 180 Mg) 180 mg PO DAILY [facility] Last Admin: 11/12/17 07:46 Dose: 180 mg Non-Formulary Medication (Liraglutide [Victoza]) 1.8 mg SQ DAILY [facility] Ptom Metformin Hcl [Metformin Hcl] 1,000 Mg 1,000 mg PO BID [facility] Last Admin: 11/12/17 07:47 Dose: 1,000 mg Ptom Metolazone ([Metolazone] 2.5 Mg) 2.5 mg PO DAILY@0730 [facility] Last Admin: 11/12/17 06:48 Dose: 2.5 mg Ptom Metoprolol (Succ 50 Mg Tab) 3 each PO DAILY [facility] Last Admin: 11/12/17 07:47 Dose: 3 each Ptom Potassium Chloride [Potassium Chloride] 60 Meq 60 meq PO BID [facility] Last Admin: 11/12/17 07:48 Dose: 60 meq Ptom Pramipexole Di-Hcl [Mirapex Er] 1.5 Mg 3 mg PO BEDTIME [facility] Last Admin: 11/11/17 19:55 Dose: 3 mg Ptom Warfarin 7. (5 Mg Tab) 1 each PO MOTUWETHFRSA [facility] Last Admin: 11/11/17 19:57 Dose: 1 each Ptom Warfarin 10 (Mg Tab) 10 mg PO [facility] Ondansetron HCl (Zofran Odt) 4 mg PO Q4H PRN PRN Reason: nausea, able to take PO Ondansetron HCl (Zofran) 4 mg IV Q4H PRN PRN Reason: Nausea/Vomiting Cartia Xt 180 Mg* Pt (Own Med*) 0 each PO DAILY [facility] Last Admin: 11/11/17 09:50 Dose: Not Given Simvastatin (Zocor) 20 mg PO WITHDINNER [facility] Last Admin: 11/11/17 17:40 Dose: 20 mg - Exam General: Reports: Alert, Oriented HEENT: Reports: Mucous Membr. Moist/[place] Neck: Reports: Supple Lungs: Reports: Decreased Breath Sounds Cardiovascular: Reports: Irregular Rhythm GI/Abdominal Exam: Normal Bowel Sounds, Soft, Non-Tender Extremities: Pedal Edema (3+ LLE, 1+ RLE) Skin: Reports: Warm, Dry Neurological: Reports: No New Focal Deficit *Q Meaningful Use (DIS) - VTE *Q VTE Criteria *Q: - Stroke *Q Stroke Criteria *Q: - AMI *Q AMI Criteria *Q:
[2017-11-14] MEDS ORDERED: WARFARIN 10 MG PO SCH (20:09)
== END 2017-11-12 09:46 | disposition home or self-care (01) ==
LOC: CC.ED 16:52 → UNDOADMOB 17:48 → CC.MS 17:48 → UNDOADMOB 20:12
PROVIDERS: ADMIT Physician Assistant Medical; ATTEND Family Medicine
DX: I47.1 Supraventricular tachycardia (principal); I48.1 Persistent atrial fibrillation; E78.00 Pure hypercholesterolemia, unspecified; E11.40 Type 2 diabetes mellitus with diabetic neuropathy, unspecified; F32.9 Major depressive disorder, single episode, unspecified; Z79.01 Long term (current) use of anticoagulants; Z79.82 Long term (current) use of aspirin; Z79.4 Long term (current) use of insulin; Z79.899 Other long term (current) drug therapy; Z88.8 Allergy status to other drugs, medicaments and biological substances
CPT/HCPCS: 36415; 80048; 80053; 82550; 82962; 83615; 83880; 84484; 85025; 85379; 85610; 85730; 86140; 93005; 96365; 96366; 96372; 96375; 99285; A9270-GY; G0378; J0153; J1650; J1815-GY; J3490; J7030; J7050

== ENCOUNTER 2018-02-11 09:55 | Emergency (ER) | payer BC ==
[2018-02-11 10:36] VITALS: BP 132/72
--- NOTE | 2018-02-11 12:33 | EDM.PDOC ---
ED HPI GENERAL MEDICAL PROBLEM - General Chief Complaint: Chest Pain Stated Complaint: SOB Time Seen by Provider: 02/11/18 11:00 Source of Information: Reports: Patient History Limitations: Reports: No Limitations - History of Present Illness INITIAL COMMENTS - FREE TEXT/NARRATIVE: Ger is a 62 yo male who presents to the ER via private vehicle with complaints of chest pain, sob and dizziness. States he underwent cardiac ablation yesterday at [facility] in [place]. Admits the procedure went well and was discharged home yesterday evening. In the middle of the night states the symptoms started. He admits initially he had a cardioversion done but his who is now present states he had an atrial ablation done secondary to atrial flutter. He has always suffered from shortness of breath and doesn't feel it is really any worse now but hasn't seen any improvement. He feels unsteady on his feet as if his legs are jello. The chest pain is reproducible with palpation to the xiphoid/sternal area. He states he had a follow up call with cardiology in [place] this morning and they recommended he come in to the ER. admits the data warehouse consultant advised him to rest for a few days which she states he hasn't been. Admits his diet has not improved either and when he was discharged yesterday he went right to [facility] and had a big chili corn dog. He has been a non-compliant diabetic and not will to do any lifestyle changes. Middle Chest Pain Score (Numeric/FACES): 5 - Related Data Allergies Allergy/AdvReac Type Severity Reaction Status Date / Time amiodarone Allergy Other Verified 02/11/18 10:40 Home Meds: Home Meds Pramipexole Di-HCl [Mirapex ER] 3 mg PO BEDTIME 12/22/13 [History] Simvastatin [Zocor] 20 mg PO WITHDINNER 12/22/13 [History] Warfarin [Coumadin] 7.5 mg PO MOTUWETHFRSA 12/19/14 [History] Warfarin [Coumadin] 10 mg PO CLEANING 12/19/14 [History] Candesartan [Atacand] 4 mg PO DAILY 01/26/15 [History] Albuterol Sulfate [Proair Hfa] 2 puff INH Q6H 11/24/15 [History] Metoprolol Succinate [Toprol XL] 150 mg PO DAILY 11/24/15 [History] Insuln Asp Prot/Insulin Aspart [NovoLOG Mix 70-30] 30 units SUBCUT BEDTIME 10/27 [History] Insuln Asp Prot/Insulin Aspart [NovoLOG Mix 70-30] 56 - 60 units SUBCUT QAM 03/08 [History] metFORMIN HCl [Metformin HCl] 1,000 mg PO BID 10/27/16 [History] Liraglutide [Victoza] 1.8 mg SQ DAILY 07/07/17 [History] Bumetanide [Bumex] 2 mg PO DAILY 11/10/17 [History] Metolazone 2.5 mg PO DAILY 11/10/17 [History] Potassium Chloride 60 meq PO BID 11/10/17 [History] Cholecalciferol (Vitamin D3) [Vitamin D] 2,000 units PO DAILY 02/11/18 [History] Multivitamin [Multi-Vitamin Daily] 1 tab PO DAILY 02/11/18 [History] Past Medical History HEENT History: Reports: Cataract Cardiovascular History: Reports: High Cholesterol, Pacemaker Other Cardiovascular History: CHF Respiratory History: Reports: Bronchitis, Recurrent Other Respiratory History: Emphysema Genitourinary History: Reports: Acute Renal Failure Neurological History: Reports: Neuropathy, Diabetic Psychiatric History: Reports: Depression Endocrine/Metabolic History: Reports: Diabetes, Type II Oncologic (Cancer) History: Reports: Bladder, Prostate Other Dermatologic History: CELLULITIS/BURSITIS OF RIGHT KNEE - Past Surgical History HEENT Surgical History: Reports: Detached Retina Cardiovascular Surgical History: Reports: Other (See Below) Other Cardiovascular Surgeries/Procedures: CARDIOVERSION GI Surgical History: Reports: Cholecystectomy, Hernia Repair/Other Other Musculoskeletal Surgeries/Procedures:: ULNAR NERVES ON BOTH ARMS DONE, BACK SURGERIES Social & Family History - Family History Family Medical History: Noncontributory - Tobacco Use Smoking Status *Q: Never Smoker - Caffeine Use Caffeine Use: Reports: Soda - Recreational Drug Use Recreational Drug Use: No - Living Situation & Occupation Living situation: Reports: , with Spouse Occupation: Retired ED ROS GENERAL - Review of Systems Review Of Systems: See Below Constitutional: Reports: Weakness, Fatigue. Denies: Fever, Chills, Decreased Appetite HEENT: Reports: No Symptoms Respiratory: Reports: Shortness of Breath, Pleuritic Chest Pain. Denies: Cough , Sputum Cardiovascular: Reports: Chest Pain, Dyspnea on Exertion, Lightheadedness, Orthopnea. Denies: Palpitations, Syncope Endocrine: Reports: Fatigue, High Glucose GI/Abdominal: Reports: No Symptoms Neurological: Reports: Dizziness ED EXAM, GENERAL - Physical Exam Exam: See Below Exam Limited By: No Limitations General Appearance: Alert, No Apparent Distress, Obese Ears: Normal External Exam, Normal Canal, Hearing Grossly Normal, Normal TMs Nose: Normal Inspection, No Blood Throat/Mouth: Normal Inspection, Normal Lips, Normal Teeth, Normal Gums, Normal Oropharynx, Normal Voice, No Airway Compromise Head: Atraumatic, Normocephalic Neck: Normal Inspection, Supple Respiratory/Chest: Lungs Clear, Decreased Breath Sounds. No: Rales, Rhonchi, Wheezing Cardiovascular: Regular Rate, Rhythm, No Murmur Extremities: Pedal Edema (3+ bilaterally with stasis dermatitis. ) Neurological: Alert, Oriented, Normal Cognition Psychiatric: Normal Affect, Normal Mood Skin Exam: Warm, Dry, Intact, Normal Color EKG INTERPRETATION EKG Date: 02/11/18 Time: 10:00 Rhythm: NSR Gunlock: LAD-Left Gunlock Deviation QRS: RBBB ST-T: Normal Comparison: Change From Previous EKG Course - Vital Signs Last Recorded V/S: Last Vital Signs Temp 98.6 F 02/11/18 09:59 Pulse 75 02/11/18 10:25 Resp 16 02/11/18 10:25 BP 132/72 02/11/18 10:25 Pulse Ox 94 L 02/11/18 10:25 - Orders/Labs/Meds Orders: Active Orders 24 hr Category Date Time Status Oxygen Therapy, ED [RC] ASDIRECTED Care 02/11/18 11:19 Active Chest 2V [CR] Stat Exams 02/11/18 09:57 Taken Labs: Laboratory Tests 02/11/18 02/11/18 02/11/18 Range/Units 10:09 10:09 10:09 WBC 6.1 (5.0-10.0) 10^3/uL RBC 4.19 L (4.50-6.00) 10^6/uL Hgb 11.3 L (14.0-18.0) g/dL Hct 37.1 L (40.0-54.0) % MCV 88.5 (82.0-94.0) fL MCH 27.0 (27.0-32.0) pg MCHC 30.5 L (33.0-38.0) g/dL RDW Coeff of Teja 18.2 H (11.0-15.0) % Plt Count 166 (150-400) 10^3/uL Neut % (Auto) 71.3 (35-85) % Lymph % (Auto) 20.2 (10-55) % [place] % (Auto) 6.6 (0-16) % Eos % (Auto) 1.6 (0-5) % Baso % (Auto) 0.3 (0-3) % Neut # (Auto) 4.33 (1.80-7.00) 10^3/uL Lymph # (Auto) 1.23 (1.00-4.80) 10^3/uL [place] # (Auto) 0.40 (0.00-0.80) 10^3/uL Eos # (Auto) 0.10 (0.00-0.45) 10^3/uL Baso # (Auto) 0.02 10^3/uL PT 22.9 H (9.7-12.3) SEC INR 2.35 H (0.92-1.18) APTT 32.4 H (23.2-32.3) SEC Sodium 139 (136-145) mEq/L Potassium 3.7 (3.5-5.0) mEq/L Chloride 101 (98-106) mEq/L Carbon Dioxide 30 (21-32) mmol/L BUN 30 H (7-18) mg/dL Creatinine 1.8 H (0.7-1.3) mg/dL Est Cr Clr Drug Dosing 52.91 mL/min Estimated GFR (MDRD) 39 L (>=60) mL/min Glucose 323 H* D (75-99) mg/dL Calcium 8.5 (8.4-10.1) mg/dL Lactate Dehydrogenase 343 H (100-190) U/L Creatine Kinase 148 (35-232) U/L Troponin I 0.322 H (0.00-0.06) ng/mL NT-Pro-B Natriuret Pep 1705 H (0-1000) pg/mL - Re-Assessments/Exams Free Text/Narrative Re-Assessment/Exam: We were able to assess Ger's oxygen saturation with ambulation. He would decrease into the the 80's on exertion but rebounded quickly to 94% at rest. Departure - Departure Time of Disposition: 12:36 Disposition: Home, Self-Care 01 Condition: Fair Clinical Impression: Status post ablation of atrial fibrillation Forms: ED Department Discharge Additional Instructions: 1) Rest today and tomorrow. 2) Keep feet elevated, wear compression stockings 3) Monitor diet as we discussed. 4) Follow up if symptoms worsen or any concerns. - Problem List & Annotations (1) Status post ablation of atrial fibrillation SNOMED Code(s): 153877129, 421564404 Code(s): Z98.890 - OTHER SPECIFIED POSTPROCEDURAL STATES; Z86.79 - PERSONAL HISTORY OF OTHER DISEASES OF THE CIRCULATORY SYSTEM Status: Acute Current Visit: Yes - Problem List Review Problem List Initiated/Reviewed/Updated: Yes - My Orders Last 24 Hours: My Active Orders 02/11/18 09:57 Chest 2V [CR] Stat 02/11/18 11:19 Oxygen Therapy, ED [RC] ASDIRECTED - Assessment/Plan Last 24 Hours: My Active Orders 02/11/18 09:57 Chest 2V [CR] Stat 02/11/18 11:19 Oxygen Therapy, ED [RC] ASDIRECTED Plan: Consulted with data warehouse consultant at [facility] that performed the ablation yesterday. He states secondary to the ablation there will be a leak in the troponin. He feels Ger is suppose to be resting. Pulmonary aspect should improve in 3-4 days. No changes in regards to medicine. Will discharge home at this time. I advised Ger he needs to start being compliant. Today he needs to go home and rest. Refrain from high salt diet. Compression stocking to be worn. He is to follow up if symptoms worsen or any new onset of symptoms.
== END 2018-02-11 12:25 | disposition home or self-care (01) ==
LOC: CC.ED 09:55
DX: I48.91 Unspecified atrial fibrillation (principal); Z98.890 Other specified postprocedural states; Z88.8 Allergy status to other drugs, medicaments and biological substances; E78.00 Pure hypercholesterolemia, unspecified; E11.40 Type 2 diabetes mellitus with diabetic neuropathy, unspecified
CPT/HCPCS: 36415; 71046; 80048; 82550; 83615; 83880; 84484; 85025; 85610; 85730; 93005; 99285

== ENCOUNTER 2018-08-08 11:46 | Observation (INO) | payer BC ==
[2018-08-08 12:17] LABS: CHLORIDE,CL 107 mEq/L (98-106); SODIUM,NA 146 mEq/L (136-145)
[2018-08-08] MEDS ORDERED: guaiFENesin 200 MG Tab PO PRN (14:16)
[2018-08-08] MEDS ORDERED: Acetaminophen 325 MG Tab PO PRN (14:38)
[2018-08-08] MEDS ORDERED: LORazepam 2 MG/ML Syringe IVPUSH PRN (14:38)
[2018-08-08] MEDS ORDERED: Sodium Chloride 0.9% 10 ML Syringe FLUSH PRN (14:38)
[2018-08-08] MEDS ORDERED: Docusate Sodium 100 MG Cap PO PRN (14:38)
[2018-08-08] MEDS ORDERED: OXYCODONE 5 MG PO PRN (14:41)
[2018-08-08] MEDS ORDERED: Albuterol 8 GM Inhaler INH PRN (14:41)
[2018-08-08] MEDS: guaiFENesin 200 MG Tab PO SCH ×2 (14:41→20:22)
[2018-08-08] MEDS: Albuterol/Ipratropium 3.0-0.5 MG/3 ML Neb Soln NEB SCH ×3 (14:41→20:22)
[2018-08-08] MEDS ORDERED: Insulin NPH/Insulin Regular,Human 70-30 100 Units/ML 10 ML Vial SUBCUT SCH (17:00)
[2018-08-08] MEDS ORDERED: PRAMIPEXOLE DI HCL 1.5 MG PO SCH (20:00)
[2018-08-08] MEDS: VICTOZA 18 MG/3 ML SQ SCH (20:22)
[2018-08-08] MEDS: PREFILLED SQ SCH (20:22)
[2018-08-08] MEDS: POTASSIUM CHLORIDE 20 MEQ PO SCH (20:23)
[2018-08-09] MEDS: Albuterol/Ipratropium 3.0-0.5 MG/3 ML Neb Soln NEB SCH (07:32)
[2018-08-09 07:38] VITALS: BP 120/82
[2018-08-09] MEDS: POTASSIUM CHLORIDE 20 MEQ PO SCH (07:41)
[2018-08-09] MEDS: guaiFENesin 200 MG Tab PO SCH (07:47)
[2018-08-09] MEDS: PREFILLED SQ SCH ×2 (07:48→09:09)
[2018-08-09] MEDS: VICTOZA 18 MG/3 ML SQ SCH ×2 (07:48→09:09)
[2018-08-09] MEDS ORDERED: **PTOM** Isosorbide Mononitrate 30 MG Tab.ER PO SCH (08:00)
[2018-08-09] MEDS ORDERED: SIMVASTATIN 20 MG PO SCH (08:00)
[2018-08-09] MEDS ORDERED: Insulin NPH/Insulin Regular,Human 70-30 100 Units/ML 10 ML Vial SUBCUT SCH (08:00)
[2018-08-09] MEDS ORDERED: BUMETANIDE 2 MG PO SCH (08:00)
[2018-08-09] MEDS ORDERED: Metoprolol Succinate 25 MG Tab.ER PO SCH (08:00)
[2018-08-09] MEDS ORDERED: Simvastatin 10 MG Tab PO SCH (08:00)
[2018-08-09] MEDS ORDERED: METOPROLOL SUCCINATE 50 MG PO SCH (08:00)
--- NOTE | 2018-08-09 16:25 | PCM.DCSUM1 ---
Discharge Summary - Hospital Course Free Text/Narrative:: Patient admitted due to increased shortness of breath/phlegm production s/p cervical fusion. Patient states since surgery, has had difficulty swallowing and feels like he is choking at times. When that occurs, feels like he is suffocating and has to remove his surgical collar. Has been producing more phlegm, coughing more and then states has a panic attack. Was admitted feeling like nebulizer treatments and mucinex may help his symptoms and to monitor his oxygen levels. Patient had his Bumex held and reports a 10# weight gain. Diagnosis: Stroke: No Modified [place] Scale: No Symptoms at All Modified [place] Scale Score: 0 - Discharge Data Discharge Date: 08/09/18 Discharge Disposition: Home, Self-Care 01 Condition: Good - Patient Summary/Data Complications: none Hospital Course: Patient feels better today, is still coughing and producing phlegm but is breathing through it. Does still take the cervical collar off when he feels he "is choking". Oxygen sats have been good. Labs are stable. WBC 6.9, Hgb 11.4. Creatinine 1.4. Is ambulating in room and tolerating well. Did discuss anxiety with patient, does feel that contributes to his shortness of breath and "panics". Does not feel will need anything to control that. Edema had increased, weight was up. Bumex was resumed and will continue at home. - Patient Instructions Diet: Diabetic Diet Activity: As Tolerated - Discharge Plan *PRESCRIPTION DRUG MONITORING PROGRAM REVIEWED*: No *COPY OF PRESCRIPTION DRUG MONITORING REPORT IN PATIENT CHASITY: No Prescriptions/Med Rec: Albuterol/Ipratropium [DuoNeb 3.0-0.5 MG/3 ML] 3 ml NEB QID #1 box Docusate Sodium [Colace] 100 mg PO BID PRN #60 cap PRN Reason: Constipation guaiFENesin [Organ-I NR] 200 mg PO BID #60 tablet Home Medications: Home Meds Pramipexole Di-HCl [Mirapex ER] 3 mg PO BEDTIME 12/22/13 [History] Simvastatin [Zocor] 20 mg PO DAILY 12/22/13 [History] Candesartan [Atacand] 4 mg PO DAILY 01/26/15 [History] Albuterol Sulfate [Proair Hfa] 2 puff INH Q6H PRN 04/03/16 [History] Metoprolol Succinate [Toprol XL] 150 mg PO DAILY 11/24/15 [History] Insuln Asp Prot/Insulin Aspart [NovoLOG Mix 70-30] 30 units SUBCUT ACDINNER 03/08 [History] Insuln Asp Prot/Insulin Aspart [NovoLOG Mix 70-30] 56 - 60 units SUBCUT QAM 03/08 [History] metFORMIN HCl [Metformin HCl] 1,000 mg PO BID 10/27/16 [History] Liraglutide [Victoza] 1.8 mg SQ DAILY 07/07/17 [History] Bumetanide [Bumex] 4 mg PO DAILY 11/10/17 [History] Potassium Chloride 40 meq PO TID 11/10/17 [History] metOLazone [Metolazone] 2.5 mg PO DAILY PRN 11/10/17 [History] Apixaban [Eliquis] 5 mg PO BID 08/08/18 [History] Isosorbide Mononitrate [Isosorbide Mononitrate ER] 30 mg PO DAILY 08/08/18 [ History] Sildenafil Citrate [Sildenafil] 10 mg PO BID 08/08/18 [History] oxyCODONE HCl [Roxicodone] 1 - 2 tab PO Q4H PRN 08/08/18 [History] Albuterol/Ipratropium [DuoNeb 3.0-0.5 MG/3 ML] 3 ml NEB QID #1 box 08/09/18 [Rx] Docusate Sodium [Colace] 100 mg PO BID PRN #60 cap 08/09/18 [Rx] guaiFENesin [Organ-I NR] 200 mg PO BID #60 tablet 08/09/18 [Rx] Oxygen Therapy Mode: Nasal Cannula Referrals: Casey Cummings PA-C [Primary Care Provider] - (Follow up in one week with Ramesh Cummings) - Discharge Summary/Plan Comment DC Time >30 min.: No Discharge Summary/Plan Comment: Discharge home Continue to wear C-Collar Resume Bumex - General Info Date of Service: 08/09/18 Admission Dx/Problem (Free Text: Shortness of Breath S/P Cervical Fusion Functional Status: Reports: Pain Controlled, Tolerating Diet, Ambulating - Review of Systems General: Reports: Weakness, Fatigue HEENT: Reports: Dysphasia Pulmonary: Reports: Shortness of Breath Cardiovascular: Reports: Edema Gastrointestinal: Denies: Abdominal Pain, Nausea, Vomiting Genitourinary: Reports: No Symptoms Musculoskeletal: Reports: Neck Pain, Back Pain Skin: Reports: Other (swelling near incision) Neurological: Reports: No Symptoms - Patient Data Vitals - Most Recent: Last Vital Signs Temp 97.8 F 08/09/18 07:37 Pulse 77 08/09/18 07:37 Resp 20 08/09/18 07:37 BP 120/82 08/09/18 07:38 Pulse Ox 98 08/09/18 07:37 Weight - Most Recent: 304 lb 14.4 oz Lab Results - Last 24 hrs: Laboratory Results - last 24 hr 08/08/18 08/09/18 08/09/18 Range/Units 17:14 07:00 07:00 WBC 6.9 (5.0-10.0) 10^3/uL RBC 4.18 L (4.50-6.00) 10^6/uL Hgb 11.4 L (14.0-18.0) g/dL Hct 38.1 L (40.0-54.0) % MCV 91.1 (82.0-94.0) fL MCH 27.3 (27.0-32.0) pg MCHC 29.9 L (33.0-38.0) g/dL RDW Coeff of [place]ja 15.4 H (11.0-15.0) % Plt Count 168 (150-400) 10^3/uL Neut % (Auto) 73.8 (35-85) % Lymph % (Auto) 15.9 (10-55) % [place] % (Auto) 8.6 (0-16) % Eos % (Auto) 1.6 (0-5) % Baso % (Auto) 0.1 (0-3) % Neut # (Auto) 5.05 (1.80-7.00) 10^3/uL Lymph # (Auto) 1.09 (1.00-4.80) 10^3/uL [place] # (Auto) 0.59 (0.00-0.80) 10^3/uL Eos # (Auto) 0.11 (0.00-0.45) 10^3/uL Baso # (Auto) 0.01 10^3/uL Sodium 145 (136-145) mEq/L Potassium 4.3 (3.5-5.0) mEq/L Chloride 108 H (98-106) mEq/L Carbon Dioxide 30 (21-32) mmol/L BUN 22 H (7-18) mg/dL Creatinine 1.4 H (0.7-1.3) mg/dL Est Cr Clr Drug Dosing 67.17 mL/min Estimated GFR (MDRD) 51 L (>=60) mL/min Glucose 185 H D (75-99) mg/dL POC Glucose 132 H (75-105) mg/dl Calcium 8.7 (8.4-10.1) mg/dL 08/09/18 Range/Units 07:47 WBC (5.0-10.0) 10^3/uL RBC (4.50-6.00) 10^6/uL Hgb (14.0-18.0) g/dL Hct (40.0-54.0) % MCV (82.0-94.0) fL MCH (27.0-32.0) pg MCHC (33.0-38.0) g/dL RDW Coeff of [place] (11.0-15.0) % Plt Count (150-400) 10^3/uL Neut % (Auto) (35-85) % Lymph % (Auto) (10-55) % [place] % (Auto) (0-16) % Eos % (Auto) (0-5) % Baso % (Auto) (0-3) % Neut # (Auto) (1.80-7.00) 10^3/uL Lymph # (Auto) (1.00-4.80) 10^3/uL [place] # (Auto) (0.00-0.80) 10^3/uL Eos # (Auto) (0.00-0.45) 10^3/uL Baso # (Auto) 10^3/uL Sodium (136-145) mEq/L Potassium (3.5-5.0) mEq/L Chloride (98-106) mEq/L Carbon Dioxide (21-32) mmol/L BUN (7-18) mg/dL Creatinine (0.7-1.3) mg/dL Est Cr Clr Drug Dosing mL/min Estimated GFR (MDRD) (>=60) mL/min Glucose (75-99) mg/dL POC Glucose 175 H (75-105) mg/dl Calcium (8.4-10.1) mg/dL Med Orders - Current: Current Medications Discontinued Medications Acetaminophen (Tylenol) 650 mg PO Q4H PRN PRN Reason: Pain (Mild 1-3)/fever Last Admin: 08/09/18 00:18 Dose: 650 mg Albuterol (Ventolin Hfa) 0 gm INH Q6H PRN PRN Reason: Dyspnea Albuterol/Ipratropium (Duoneb 3.0-0.5 Mg/3 Ml) 3 ml NEB QID COUNT INCLUDES THE [facility] Last Admin: 08/09/18 07:32 Dose: 3 ml Docusate Sodium (Colace) 100 mg PO BID PRN PRN Reason: Constipation Guaifenesin (Organ-I Nr) 200 mg PO Q12H PRN PRN Reason: COUGH Guaifenesin (Organ-I Nr) 200 mg PO BID COUNT INCLUDES THE [facility] Last Admin: 08/09/18 07:47 Dose: 200 mg Insulin Human Isoph/Insulin Regular (Humulin 70-30) 30 units SUBCUT ACDINNER COUNT INCLUDES THE [facility] Last Admin: 08/08/18 17:19 Dose: 30 units Insulin Human Isoph/Insulin Regular (Humulin 70-30) 56 - 60 units SUBCUT QAM COUNT INCLUDES THE [facility] Last Admin: 08/09/18 08:37 Dose: 50 units Isosorbide Mononitrate (Imdur) 30 mg PO DAILY COUNT INCLUDES THE [facility] Last Admin: 08/09/18 07:38 Dose: 30 mg Lorazepam (Ativan) 1 mg IVPUSH Q6H PRN PRN Reason: Anxiety Metoprolol Succinate (Toprol Xl) 150 mg PO DAILY COUNT INCLUDES THE [facility] Ptom Bumetanide ([Bumex] 2 Mg) 4 mg PO DAILY COUNT INCLUDES THE [facility] Last Admin: 08/09/18 07:35 Dose: 4 mg Victoza 18mg/3ml Prefilled Pen Own Med 0 mg SQ BID COUNT INCLUDES THE [facility] Last Admin: 08/09/18 09:09 Dose: Not Given Ptom Potassium (Chloride 20 Meq) 40 meq PO TID COUNT INCLUDES THE [facility] Last Admin: 08/09/18 07:41 Dose: 40 meq Ptom Pramipexole Di-Hcl [Mirapex Er] 1.5 Mg 3 mg PO BEDTIME COUNT INCLUDES THE [facility] Last Admin: 08/08/18 20:24 Dose: 3 mg Ptom Metoprolol (Succinate Er 50 Mg) 150 mg PO DAILY COUNT INCLUDES THE [facility] Last Admin: 08/09/18 07:39 Dose: 150 mg Ptom Simvastatin (20 Mg) 20 mg PO DAILY COUNT INCLUDES THE [facility] Last Admin: 08/09/18 07:41 Dose: 20 mg Oxycodone HCl (Oxycodone) 5 - 10 mg PO Q4H PRN PRN Reason: Pain Last Admin: 08/08/18 22:15 Dose: 10 mg Simvastatin (Zocor) 20 mg PO DAILY COUNT INCLUDES THE [facility] Sodium Chloride (Saline Flush) 10 ml FLUSH ASDIRECTED PRN PRN Reason: Keep Vein Open - Exam General: Reports: Alert, Oriented HEENT: Reports: Mucous Membr. Moist/[place] Neck: Reports: Supple, Other (anterior neck incision is clean, no redness, mild swelling) Lungs: Reports: Clear to Auscultation, Normal Respiratory Effort Cardiovascular: Reports: Regular Rate, Regular Rhythm GI/Abdominal Exam: Normal Bowel Sounds, Soft, Non-Tender Extremities: Pedal Edema Skin: Reports: Warm, Dry Wound/Incisions: Reports: Healing Well Neurological: Reports: No New Focal Deficit
== END 2018-08-09 09:10 | disposition home or self-care (01) ==
LOC: CC.FCMC 11:46 → CC.MS 13:12 → UNDOADMOB 13:12 → CC.MS 14:38
PROVIDERS: ADMIT Physician Assistant Medical; ATTEND Family Medicine
DX: R05 Cough (principal); R06.02 Shortness of breath; Z98.1 Arthrodesis status; I48.91 Unspecified atrial fibrillation; D68.9 Coagulation defect, unspecified; I11.0 Hypertensive heart disease with heart failure; I50.9 Heart failure, unspecified; F41.8 Other specified anxiety disorders; E11.40 Type 2 diabetes mellitus with diabetic neuropathy, unspecified; E78.00 Pure hypercholesterolemia, unspecified; E05.90 Thyrotoxicosis, unspecified without thyrotoxic crisis or storm; G47.30 Sleep apnea, unspecified; Z91.19 Patient's noncompliance with other medical treatment and regimen; Z79.84 Long term (current) use of oral hypoglycemic drugs; Z79.899 Other long term (current) drug therapy
CPT/HCPCS: 36415; 71046; 80048; 80053; 82962; 83880; 85025; 86140; 94640; A9270; G0378; J1815; J7620-GY

== ENCOUNTER 2018-10-14 11:21 | Inpatient (IN) | payer BC, MEDICARE ==
[2018-10-14 12:02] LABS: CHLORIDE,CL 98 mEq/L (98-106); SODIUM,NA 137 mEq/L (136-145)
[2018-10-14] MEDS ORDERED: Acetaminophen 325 MG Tab PO PRN (14:05)
[2018-10-14] MEDS ORDERED: Albuterol 8 GM Inhaler INH PRN (14:08)
[2018-10-14] MEDS ORDERED: Docusate Sodium 100 MG Cap PO PRN (14:08)
[2018-10-14] MEDS ORDERED: Sodium Chloride 0.9% 500 ML IV SCH (14:15)
[2018-10-14] MEDS: oxyCODONE 5 MG Tab PO PRN (15:02)
[2018-10-14] MEDS: Albuterol/Ipratropium 3.0-0.5 MG/3 ML Neb Soln NEB SCH ×2 (16:41→19:43)
[2018-10-14] MEDS: Insulin NPH/Insulin Regular,Human 70-30 100 Units/ML 10 ML Vial SUBCUT SCH (17:40)
[2018-10-14] MEDS: Pramipexole 0.5 MG Tab PO SCH (19:41)
[2018-10-14] MEDS: Apixaban 5 MG Tab PO SCH (19:43)
[2018-10-14] MEDS: Potassium Chloride 10 MEQ Tab.ER PO SCH (19:43)
[2018-10-14] MEDS ORDERED: metFORMIN 500 MG Tab PO SCH (20:00)
[2018-10-14] MEDS ORDERED: Insulin Aspart 100 Units/ML 3 ML Pen SUBCUT SCH (21:00)
[2018-10-15] MEDS: oxyCODONE 5 MG Tab PO PRN ×2 (07:02→21:59)
[2018-10-15] MEDS: Albuterol/Ipratropium 3.0-0.5 MG/3 ML Neb Soln NEB SCH ×4 (07:56→19:40)
[2018-10-15] MEDS: Apixaban 5 MG Tab PO SCH ×2 (07:57→19:40)
[2018-10-15] MEDS: LIRAGLUTIDE 1.8 MG SQ SCH (07:58)
[2018-10-15] MEDS: Potassium Chloride 10 MEQ Tab.ER PO SCH ×3 (07:58→19:41)
[2018-10-15] MEDS: Simvastatin 10 MG Tab PO SCH (08:01)
[2018-10-15] MEDS: Metoprolol Succinate 100 MG Tab.ER PO SCH (08:01)
[2018-10-15] MEDS: Insulin NPH/Insulin Regular,Human 70-30 100 Units/ML 10 ML Vial SUBCUT SCH ×2 (08:23→17:34)
--- NOTE | 2018-10-15 13:59 | PCM.PN ---
- General Info Date of Service: 10/15/18 Admission Dx/Problem (Free Text): Dizziness Acute on chronic renal insufficiency Acute hypotension Dehydration Subjective Update: Ger is a 63 year old male with complex PMH who was admitted to the hospital for dizziness, dehydration, acute on chronic renal insufficiency, and hypotension. Presented to clinic with c/o bilateral carpal tunnel and was noted to be hypotensive. Creatinine elevated to 2.5, baseline 2.0-2.2. Patient's diuretics and BP meds, other then metoprolol, have been on hold. This morning patient reports his only complaint is his bilateral hand pain/ numbness. He reports he is feeling much better. Is no longer dizzy or feeling weak. Has not been up ambulating much. Nursing staff report he is noncompliant with diabetic diet and eats in excess. Blood pressure has been stable 120-100/60-70s. All blood pressure meds and diuretics remain on hold except 100 mg metoprolol QD. Functional Status: Reports: Pain Controlled, Tolerating Diet, Ambulating, Urinating. Denies: New Symptoms - Review of Systems General: Denies: Weakness, Fatigue HEENT: Reports: No Symptoms Pulmonary: Reports: No Symptoms. Denies: Shortness of Breath, Pleuritic Chest Pain, Cough, Sputum, Wheezing Cardiovascular: Reports: No Symptoms. Denies: Chest Pain, Palpitations, Dyspnea on Exertion, Edema, Lightheadedness Gastrointestinal: Reports: No Symptoms. Denies: Abdominal Pain, Decreased Appetite, Diarrhea, Nausea, Vomiting Genitourinary: Reports: No Symptoms Musculoskeletal: Reports: No Symptoms Skin: Reports: No Symptoms Neurological: Reports: No Symptoms Psychiatric: Reports: No Symptoms - Patient Data Vitals - Most Recent: Last Vital Signs Temp 97.1 F 10/15/18 12:00 Pulse 78 10/15/18 12:00 Resp 16 10/15/18 12:00 BP 102/74 10/15/18 12:00 Pulse Ox 97 10/15/18 12:00 Weight - Most Recent: 287 lb 14.4 oz I&O - Last 24 Hours: Intake & Output 10/14/18 10/15/18 10/15/18 22:59 06:59 14:59 Intake Total 1450 500 200 Output Total 1425 400 Balance 1450 -925 -200 Lab Results Last 24 Hours: Laboratory Results - last 24 hr 10/14/18 10/14/18 10/15/18 Range/Units 17:11 20:52 05:11 WBC 6.3 (5.0-10.0) 10^3/uL RBC 5.06 (4.50-6.00) 10^6/uL Hgb 13.3 L (14.0-18.0) g/dL Hct 42.4 (40.0-54.0) % MCV 83.8 (82.0-94.0) fL MCH 26.3 L (27.0-32.0) pg MCHC 31.4 L (33.0-38.0) g/dL RDW Coeff of Teja 16.1 H (11.0-15.0) % Plt Count 220 (150-400) 10^3/uL Neut % (Auto) 65.0 (35-85) % Lymph % (Auto) 23.6 (10-55) % [place] % (Auto) 8.7 (0-16) % Eos % (Auto) 2.5 (0-5) % Baso % (Auto) 0.2 (0-3) % Neut # (Auto) 4.10 (1.80-7.00) 10^3/uL Lymph # (Auto) 1.49 (1.00-4.80) 10^3/uL [place] # (Auto) 0.55 (0.00-0.80) 10^3/uL Eos # (Auto) 0.16 (0.00-0.45) 10^3/uL Baso # (Auto) 0.01 10^3/uL Sodium (136-145) mEq/L Potassium (3.5-5.0) mEq/L Chloride (98-106) mEq/L Carbon Dioxide (21-32) mmol/L BUN (7-18) mg/dL Creatinine (0.7-1.3) mg/dL Est Cr Clr Drug Dosing mL/min Estimated GFR (MDRD) (>=60) mL/min Glucose (75-99) mg/dL POC Glucose 100 161 H (75-105) mg/dl Calcium (8.4-10.1) mg/dL 10/15/18 10/15/18 Range/Units 05:11 07:54 WBC (5.0-10.0) 10^3/uL RBC (4.50-6.00) 10^6/uL Hgb (14.0-18.0) g/dL Hct (40.0-54.0) % MCV (82.0-94.0) fL MCH (27.0-32.0) pg MCHC (33.0-38.0) g/dL RDW Coeff of [place]ja (11.0-15.0) % Plt Count (150-400) 10^3/uL Neut % (Auto) (35-85) % Lymph % (Auto) (10-55) % [place] % (Auto) (0-16) % Eos % (Auto) (0-5) % Baso % (Auto) (0-3) % Neut # (Auto) (1.80-7.00) 10^3/uL Lymph # (Auto) (1.00-4.80) 10^3/uL [place] # (Auto) (0.00-0.80) 10^3/uL Eos # (Auto) (0.00-0.45) 10^3/uL Baso # (Auto) 10^3/uL Sodium 141 (136-145) mEq/L Potassium 3.7 (3.5-5.0) mEq/L Chloride 100 (98-106) mEq/L Carbon Dioxide 32 (21-32) mmol/L BUN 41 H (7-18) mg/dL Creatinine 2.0 H (0.7-1.3) mg/dL Est Cr Clr Drug Dosing 47.02 mL/min Estimated GFR (MDRD) 34 L (>=60) mL/min Glucose 119 H (75-99) mg/dL POC Glucose 117 H (75-105) mg/dl Calcium 8.8 (8.4-10.1) mg/dL Med Orders - Current: Current Medications Acetaminophen (Tylenol) 650 mg PO Q4H PRN PRN Reason: Pain (Mild 1-3)/fever Albuterol (Ventolin Hfa) 0 gm INH Q6H PRN PRN Reason: Dyspnea Albuterol/Ipratropium (Duoneb 3.0-0.5 Mg/3 Ml) 3 ml NEB QID SOY Last Admin: 10/15/18 12:10 Dose: 3 ml Apixaban (Eliquis) 5 mg PO BID [facility] Last Admin: 10/15/18 07:57 Dose: 5 mg Docusate Sodium (Colace) 100 mg PO BID PRN PRN Reason: Constipation Insulin Aspart (Novolog) 0 unit SUBCUT WITHMEALSANDBED [facility]; Protocol Last Admin: 10/15/18 12:08 Dose: Not Given Insulin Human Isoph/Insulin Regular (Humulin 70-30) 30 units SUBCUT ACDINNER [facility] Last Admin: 10/14/18 17:40 Dose: 30 units Insulin Human Isoph/Insulin Regular (Humulin 70-30) 56 - 60 units SUBCUT QAM [facility] Last Admin: 10/15/18 08:23 Dose: 60 units Metoprolol Succinate (Toprol Xl) 100 mg PO DAILY [facility] Last Admin: 10/15/18 08:01 Dose: 100 mg Ptom Liraglutide ([Victoza] 1.8 Mg) 1.8 mg SQ DAILY [facility] Last Admin: 10/15/18 07:58 Dose: 1.8 mg Oxycodone HCl (Oxycodone) 5 mg PO Q4H PRN PRN Reason: Pain Last Admin: 10/15/18 07:02 Dose: 5 mg Potassium Chloride (Klor-Con 10) 40 meq PO TID [facility] Last Admin: 10/15/18 13:11 Dose: 40 meq Pramipexole Dihydrochloride (Mirapex) 3 mg PO BEDTIME [facility] Last Admin: 10/14/18 19:41 Dose: 3 mg Simvastatin (Zocor) 20 mg PO DAILY [facility] Last Admin: 10/15/18 08:01 Dose: 20 mg Discontinued Medications Sodium Chloride (Normal Saline) 500 mls @ 75 mls/hr IV ASDIRECTED [facility] Stop: 10/14/18 20:54 Last Admin: 10/14/18 15:03 Dose: 75 mls/hr Insulin Aspart (Novolog) 0 unit SUBCUT WITHMEALSANDBED [facility]; Protocol Last Admin: 10/14/18 22:19 Dose: Not Given Metformin HCl (Glucophage) 1,000 mg PO BID [facility] - Exam General: Alert, Oriented, No Acute Distress Neck: Supple Lungs: Clear to Auscultation, Normal Respiratory Effort Cardiovascular: Regular Rate, Regular Rhythm, No Murmurs, Other (distant heart tones) GI/Abdominal Exam: Normal Bowel Sounds, Soft, Non-Tender, No Organomegaly, No Distention, No Abnormal Bruit, No Mass, Pelvis Stable Extremities: Other (discoloration - chronic venous stasis) Neurological: No New Focal Deficit Psy/Mental Status: Alert, Normal Affect, Normal Mood - Problem List & Annotations (1) Acute on chronic renal insufficiency SNOMED Code(s): 688566910 Code(s): N28.9 - DISORDER OF KIDNEY AND URETER, UNSPECIFIED; N18.9 - CHRONIC KIDNEY DISEASE, UNSPECIFIED Status: Acute Current Visit: Yes (2) Dizziness SNOMED Code(s): 620897774, 522468968 Code(s): R42 - DIZZINESS AND GIDDINESS Status: Acute Current Visit: Yes (3) Hypotension due to hypovolemia SNOMED Code(s): 06701043 Code(s): I95.89 - OTHER HYPOTENSION; E86.1 - HYPOVOLEMIA Status: Acute Current Visit: Yes (4) Dehydration SNOMED Code(s): 37523846 Code(s): E86.0 - DEHYDRATION Status: Acute Current Visit: Yes (5) Type 2 diabetes mellitus SNOMED Code(s): 04727361 Code(s): E11.9 - TYPE 2 DIABETES MELLITUS WITHOUT COMPLICATIONS Status: Acute Current Visit: Yes Qualifiers: Diabetes mellitus jail insulin use: with ocean transportation intermediary use Diabetes mellitus complication status: with kidney complications Diabetes mellitus complication detail: with chronic kidney disease Chronic kidney disease stage : stage 3 (moderate) Qualified Code(s): E11.22 - Type 2 diabetes mellitus with diabetic chronic kidney disease; N18.3 - Chronic kidney disease, stage 3 ( moderate); 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 Continue metoprolol daily. Monitor BP every 4 hours. Will gradually add home medications once patients BP able to withstand. Creatinine improved from 2.5 to 2.0 today. Back to baseline. Blood sugars have been well controlled with home and SSI. Discussed with patient that follow up on carpal tunnel will be completed on outpatient basis with PCP. Encouraged patient to try to ambulate today and see how he's feeling. Anticipate discharge 1-2 days pending BP and lab work. Inappropriate for discharge due to ongoing monitoring of BP and lab work.
[2018-10-15] MEDS: Pramipexole 0.5 MG Tab PO SCH (19:41)
[2018-10-16] MEDS: oxyCODONE 5 MG Tab PO PRN ×2 (01:47→07:45)
[2018-10-16] MEDS: Simvastatin 10 MG Tab PO SCH (07:44)
[2018-10-16] MEDS: Albuterol/Ipratropium 3.0-0.5 MG/3 ML Neb Soln NEB SCH ×4 (07:44→19:37)
[2018-10-16] MEDS: Metoprolol Succinate 100 MG Tab.ER PO SCH (07:45)
[2018-10-16] MEDS: Potassium Chloride 10 MEQ Tab.ER PO SCH ×3 (07:45→19:37)
[2018-10-16] MEDS: Apixaban 5 MG Tab PO SCH ×2 (07:45→19:37)
[2018-10-16] MEDS: Insulin NPH/Insulin Regular,Human 70-30 100 Units/ML 10 ML Vial SUBCUT SCH ×2 (07:55→17:12)
[2018-10-16] MEDS: LIRAGLUTIDE 1.8 MG SQ SCH (07:56)
--- NOTE | 2018-10-16 11:45 | PCM.PN ---
- General Info Date of Service: 10/16/18 Admission Dx/Problem (Free Text): Dizziness Acute on chronic renal insufficiency Acute hypotension Dehydration Subjective Update: Patient reports he is feeling well this morning. Only complaint is pain in his bilateral hands and right index finger. Reports he has been dealing with this for some time now and needs to have carpal tunnel surgery. He reports other than that he has no complaints and wishes to go home. He denies any dizziness, chest pain, shortness of breath, abdominal pain, urinary symptoms. Has been eating good. Blood sugars have been good. Was up ambulating in zheng this morning. Functional Status: Reports: Pain Controlled, Tolerating Diet, Ambulating, Urinating. Denies: New Symptoms - Review of Systems General: Reports: No Symptoms. Denies: Fever, Weakness, Fatigue, Chills HEENT: Reports: No Symptoms Pulmonary: Reports: Cough. Denies: Shortness of Breath, Sputum, Hemoptysis, Wheezing Cardiovascular: Reports: No Symptoms. Denies: Chest Pain, Palpitations, Dyspnea on Exertion, Edema, Lightheadedness Gastrointestinal: Reports: No Symptoms. Denies: Abdominal Pain, Diarrhea, Nausea, Vomiting Genitourinary: Reports: No Symptoms. Denies: Dysuria, Frequency, Urgency Musculoskeletal: Reports: Hand Pain, Other (finger pain- right index) Skin: Reports: No Symptoms Neurological: Reports: No Symptoms - Patient Data Vitals - Most Recent: Last Vital Signs Temp 98.8 F 10/16/18 08:00 Pulse 96 10/16/18 08:00 Resp 18 10/16/18 08:00 BP 135/85 10/16/18 08:00 Pulse Ox 96 10/16/18 08:00 Weight - Most Recent: 292 lb I&O - Last 24 Hours: Intake & Output 10/15/18 10/16/18 10/16/18 22:59 06:59 14:59 Intake Total 800 1520 Output Total 900 900 Balance -100 620 Lab Results Last 24 Hours: Laboratory Results - last 24 hr 10/15/18 10/15/18 10/15/18 Range/Units 12:05 17:08 19:40 WBC (5.0-10.0) 10^3/uL RBC (4.50-6.00) 10^6/uL Hgb (14.0-18.0) g/dL Hct (40.0-54.0) % MCV (82.0-94.0) fL MCH (27.0-32.0) pg MCHC (33.0-38.0) g/dL RDW Coeff of Teja (11.0-15.0) % Plt Count (150-400) 10^3/uL Neut % (Auto) (35-85) % Lymph % (Auto) (10-55) % Carbon % (Auto) (0-16) % Eos % (Auto) (0-5) % Baso % (Auto) (0-3) % Neut # (Auto) (1.80-7.00) 10^3/uL Lymph # (Auto) (1.00-4.80) 10^3/uL Carbon # (Auto) (0.00-0.80) 10^3/uL Eos # (Auto) (0.00-0.45) 10^3/uL Baso # (Auto) 10^3/uL Sodium (136-145) mEq/L Potassium (3.5-5.0) mEq/L Chloride (98-106) mEq/L Carbon Dioxide (21-32) mmol/L BUN (7-18) mg/dL Creatinine (0.7-1.3) mg/dL Est Cr Clr Drug Dosing mL/min Estimated GFR (MDRD) (>=60) mL/min Glucose (75-99) mg/dL POC Glucose 146 H 91 140 H (75-105) mg/dl Uric Acid (3.5-7.2) mg/dL Calcium (8.4-10.1) mg/dL 10/16/18 10/16/18 10/16/18 Range/Units 07:43 08:17 08:17 WBC 7.4 (5.0-10.0) 10^3/uL RBC 5.05 (4.50-6.00) 10^6/uL Hgb 13.4 L (14.0-18.0) g/dL Hct 43.4 (40.0-54.0) % MCV 85.9 (82.0-94.0) fL MCH 26.5 L (27.0-32.0) pg MCHC 30.9 L (33.0-38.0) g/dL RDW Coeff of Teja 16.1 H (11.0-15.0) % Plt Count 226 (150-400) 10^3/uL Neut % (Auto) 63.7 (35-85) % Lymph % (Auto) 23.7 (10-55) % Carbon % (Auto) 8.4 (0-16) % Eos % (Auto) 3.9 (0-5) % Baso % (Auto) 0.3 (0-3) % Neut # (Auto) 4.70 (1.80-7.00) 10^3/uL Lymph # (Auto) 1.75 (1.00-4.80) 10^3/uL Carbon # (Auto) 0.62 (0.00-0.80) 10^3/uL Eos # (Auto) 0.29 (0.00-0.45) 10^3/uL Baso # (Auto) 0.02 10^3/uL Sodium 141 (136-145) mEq/L Potassium 4.3 (3.5-5.0) mEq/L Chloride 103 (98-106) mEq/L Carbon Dioxide 30 (21-32) mmol/L BUN 32 H (7-18) mg/dL Creatinine 1.6 H (0.7-1.3) mg/dL Est Cr Clr Drug Dosing 58.77 mL/min Estimated GFR (MDRD) 44 L (>=60) mL/min Glucose 138 H (75-99) mg/dL POC Glucose 135 H (75-105) mg/dl Uric Acid 9.5 H (3.5-7.2) mg/dL Calcium 9.3 (8.4-10.1) mg/dL Med Orders - Current: Current Medications Acetaminophen (Tylenol) 650 mg PO Q4H PRN PRN Reason: Pain (Mild 1-3)/fever Albuterol (Ventolin Hfa) 0 gm INH Q6H PRN PRN Reason: Dyspnea Albuterol/Ipratropium (Duoneb 3.0-0.5 Mg/3 Ml) 3 ml NEB QID [facility] Last Admin: 10/16/18 07:44 Dose: 3 ml Apixaban (Eliquis) 5 mg PO BID [facility] Last Admin: 10/16/18 07:45 Dose: 5 mg Docusate Sodium (Colace) 100 mg PO BID PRN PRN Reason: Constipation Insulin Aspart (Novolog) 0 unit SUBCUT WITHMEALSANDBED [facility]; Protocol Last Admin: 10/16/18 07:57 Dose: Not Given Insulin Human Isoph/Insulin Regular (Humulin 70-30) 30 units SUBCUT ACDINNER [facility] Last Admin: 10/15/18 17:34 Dose: 30 units Insulin Human Isoph/Insulin Regular (Humulin 70-30) 56 - 60 units SUBCUT QAM [facility] Last Admin: 10/16/18 07:55 Dose: 56 units Isosorbide Mononitrate (Imdur) 30 mg PO DAILY [facility] Metoprolol Succinate (Toprol Xl) 100 mg PO DAILY [facility] Last Admin: 10/16/18 07:45 Dose: 100 mg Ptom Liraglutide ([Victoza] 1.8 Mg) 1.8 mg SQ DAILY [facility] Last Admin: 10/16/18 07:56 Dose: 1.8 mg Oxycodone HCl (Oxycodone) 5 mg PO Q4H PRN PRN Reason: Pain Last Admin: 10/16/18 07:45 Dose: 5 mg Potassium Chloride (Klor-Con 10) 40 meq PO TID [facility] Last Admin: 10/16/18 07:45 Dose: 40 meq Pramipexole Dihydrochloride (Mirapex) 3 mg PO BEDTIME [facility] Last Admin: 10/15/18 19:41 Dose: 3 mg Simvastatin (Zocor) 20 mg PO DAILY [facility] Last Admin: 10/16/18 07:44 Dose: 20 mg Discontinued Medications Sodium Chloride (Normal Saline) 500 mls @ 75 mls/hr IV ASDIRECTED [facility] Stop: 10/14/18 20:54 Last Admin: 10/14/18 15:03 Dose: 75 mls/hr Insulin Aspart (Novolog) 0 unit SUBCUT WITHMEALSANDBED [facility]; Protocol Last Admin: 10/14/18 22:19 Dose: Not Given Metformin HCl (Glucophage) 1,000 mg PO BID [facility] - Exam General: Alert, Oriented, No Acute Distress Neck: Supple Lungs: Clear to Auscultation, Normal Respiratory Effort Cardiovascular: Regular Rate, Regular Rhythm, Other (distant heart tones) GI/Abdominal Exam: Normal Bowel Sounds, Soft, Non-Tender, No Organomegaly, No Distention, No Abnormal Bruit, No Mass, Pelvis Stable Extremities: Normal Inspection, Normal Range of Motion, Non-Tender, No Pedal Edema, Normal Capillary Refill, Other (chronic venous stasis) Skin: Other (distal right index finger- erythema, moderate calor) Neurological: No New Focal Deficit Psy/Mental Status: Alert, Normal Affect, Normal Mood - Problem List & Annotations (1) Acute on chronic renal insufficiency SNOMED Code(s): 017915387 Code(s): N28.9 - DISORDER OF KIDNEY AND URETER, UNSPECIFIED; N18.9 - CHRONIC KIDNEY DISEASE, UNSPECIFIED Status: Acute Current Visit: Yes (2) Dizziness SNOMED Code(s): 527169397, 961745295 Code(s): R42 - DIZZINESS AND GIDDINESS Status: Acute Current Visit: Yes (3) Hypotension due to hypovolemia SNOMED Code(s): 53650006 Code(s): I95.89 - OTHER HYPOTENSION; E86.1 - HYPOVOLEMIA Status: Acute Current Visit: Yes (4) Dehydration SNOMED Code(s): 54669904 Code(s): E86.0 - DEHYDRATION Status: Acute Current Visit: Yes (5) Type 2 diabetes mellitus SNOMED Code(s): 36431759 Code(s): E11.9 - TYPE 2 DIABETES MELLITUS WITHOUT COMPLICATIONS Status: Acute Current Visit: Yes Qualifiers: Diabetes mellitus fpc insulin use: with fpc use Diabetes mellitus complication status: with kidney complications Diabetes mellitus complication detail: with chronic kidney disease Chronic kidney disease stage : stage 3 (moderate) Qualified Code(s): E11.22 - Type 2 diabetes mellitus with diabetic chronic kidney disease; N18.3 - Chronic kidney disease, stage 3 ( moderate); Z79.4 - FPC (current) use of insulin (6) Gout due to renal impairment SNOMED Code(s): 805650895 Code(s): M10.30 - GOUT DUE TO RENAL IMPAIRMENT, UNSPECIFIED SITE Status: Acute Current Visit: Yes Qualifiers: Gout site: hand Chronicity: acute Laterality: right Qualified Code(s): M10.341 - Gout due to renal impairment, right hand - Problem List Review Problem List Initiated/Reviewed/Updated: Yes - My Orders Last 24 Hours: My Active Orders 10/16/18 11:15 Isosorbide Mononitrate [Imdur] 30 mg PO DAILY - Plan Plan:: Continue metoprolol. Restart Imdur. Continue to monitor BP. Creatinine improved from 2.5 on admit to 1.6 today. Blood sugars have been well controlled with home and SSI. Gout to right index finger. Uric acid 9.5. Will start steroids. Anticipate discharge tomorrow pending BP and lab work. Inappropriate for discharge due to ongoing monitoring of BP and lab work.
[2018-10-16] MEDS: Isosorbide Mononitrate 30 MG Tab.ER PO SCH (12:09)
[2018-10-16] MEDS ORDERED: methylPREDNISolone Sodium Succinate 125 MG/2 ML SDV IVPUSH SCH (13:15)
[2018-10-16] MEDS: Pramipexole 0.5 MG Tab PO SCH (19:38)
[2018-10-17] MEDS: Potassium Chloride 10 MEQ Tab.ER PO SCH (08:07)
[2018-10-17] MEDS: Isosorbide Mononitrate 30 MG Tab.ER PO SCH (08:07)
[2018-10-17] MEDS: Albuterol/Ipratropium 3.0-0.5 MG/3 ML Neb Soln NEB SCH (08:07)
[2018-10-17] MEDS: Apixaban 5 MG Tab PO SCH (08:08)
[2018-10-17] MEDS: Metoprolol Succinate 100 MG Tab.ER PO SCH (08:08)
[2018-10-17] MEDS: Simvastatin 10 MG Tab PO SCH (08:08)
[2018-10-17] MEDS: LIRAGLUTIDE 1.8 MG SQ SCH (08:10)
[2018-10-17 08:11] VITALS: BP 126/84
[2018-10-17] MEDS: Insulin NPH/Insulin Regular,Human 70-30 100 Units/ML 10 ML Vial SUBCUT SCH (08:22)
--- NOTE | 2018-10-17 10:07 | PCM.DCSUM1 ---
Discharge Summary - Hospital Course Free Text/Narrative:: Patient presented to clinic to see Ramesh Cummings for bilateral carpal tunnel concerns. While in the clinic, patient reported that he had been feeling weak, lightheaded. Had noticed an increase in swelling in his legs and his weight was near 300# so he took Bumex and Metolazone and was down about 15# from that. However, did note that the weakness worsened as a result. Blood sugars have been running in the 200s. Labs were done, did show an increase in his creatinine from his usual baseline around 1.6 to 2.5. Blood pressure was low at 72/52. Offered transfer to [facility] as he has a known history of Cardiomyopathy and CHF but patient preferred to stay in [place]. Blood pressure meds were held with exception of metoprolol for rate control. Bumex and Metolazone held. Given 500 ml bolus as was quite lethargic by exam. Diagnosis: Stroke: No Modified Janet Scale: No Symptoms at All Modified Janet Scale Score: 0 - Discharge Data Discharge Date: 10/17/18 Discharge Disposition: Home, Self-Care 01 Condition: Good - Patient Summary/Data Complications: none Hospital Course: Patient is alert, ambulating about the room. Is voiding well, appetite has been good. He expresses dissatisfaction of not "getting enough to eat" as he eats more carbs at home but is on a restricted low carb, low salt diet while here. Edema is 1+. Lung sounds are clear. Heart irregular with notable murmur. Creatinine 1.6, much improved. Was having increased pain and redness in his index finger, uric acid level was 9.5. Was started on IV steroids. Blood pressure has improved. This am 126/84. Blood sugar 143 to 345. Will discharge home. Resume his usual meds. Was advised if blood pressure is low, should hold ImDur. Continue prednisone for 4 more days for gout. Will need to see Ramesh for follow up on the carpal tunnel syndrome. - Patient Instructions Diet: Low Sodium, Diabetic Diet Activity: As Tolerated - Discharge Plan *PRESCRIPTION DRUG MONITORING PROGRAM REVIEWED*: No *COPY OF PRESCRIPTION DRUG MONITORING REPORT IN PATIENT CHASITY: No Prescriptions/Med Rec: predniSONE [Prednisone] 20 mg PO DAILY #4 tablet Home Medications: Home Meds Pramipexole Di-HCl [Mirapex ER] 3 mg PO BEDTIME 12/22/13 [History] Simvastatin [Zocor] 20 mg PO DAILY 12/22/13 [History] Candesartan [Atacand] 4 mg PO DAILY 01/26/15 [History] Albuterol Sulfate [Proair Hfa] 2 puff INH Q6H PRN 11/24/15 [History] Metoprolol Succinate [Toprol XL] 150 mg PO DAILY 11/24/15 [History] Insuln Asp Prot/Insulin Aspart [NovoLOG Mix 70-30] 30 units SUBCUT ACDINNER 03/08 [History] Insuln Asp Prot/Insulin Aspart [NovoLOG Mix 70-30] 56 - 60 units SUBCUT QAM 03/08 [History] metFORMIN HCl [Metformin HCl] 1,000 mg PO BID 10/27/16 [History] Liraglutide [Victoza] 1.8 mg SQ DAILY 07/07/17 [History] Bumetanide [Bumex] 4 mg PO DAILY 11/10/17 [History] Potassium Chloride 40 meq PO TID 11/10/17 [History] metOLazone [Metolazone] 2.5 mg PO DAILY PRN 11/10/17 [History] Apixaban [Eliquis] 5 mg PO BID 08/08/18 [History] Isosorbide Mononitrate [Isosorbide Mononitrate ER] 30 mg PO DAILY 08/08/18 [ History] Sildenafil Citrate [Sildenafil] 10 mg PO BID 08/08/18 [History] oxyCODONE HCl [Roxicodone] 1 - 2 tab PO Q4H PRN 08/08/18 [History] Albuterol/Ipratropium [DuoNeb 3.0-0.5 MG/3 ML] 3 ml NEB QID #1 box 08/09/18 [Rx] Docusate Sodium [Colace] 100 mg PO BID PRN #60 cap 08/09/18 [Rx] guaiFENesin [Organ-I NR] 200 mg PO BID #60 tablet 08/09/18 [Rx] predniSONE [Prednisone] 20 mg PO DAILY #4 tablet 10/17/18 [Rx] Patient Handouts: Gout, Chronic Kidney Disease, Adult Referrals: Casey Cummings, FREDDIE [Primary Care Provider] - (Follow up with Ramesh Cummings in one week. Will need to arrange to see Dr. Amezcua for carpal tunnel consult at that visit) - Discharge Summary/Plan Comment DC Time >30 min.: No - General Info Date of Service: 10/17/18 Admission Dx/Problem (Free Text: Dizziness Acute on chronic renal insufficiency Acute hypotension Dehydration Functional Status: Reports: Pain Controlled, Tolerating Diet, Ambulating - Review of Systems General: Reports: Weakness HEENT: Reports: No Symptoms Pulmonary: Reports: Shortness of Breath. Denies: Cough Cardiovascular: Reports: Edema. Denies: Lightheadedness Gastrointestinal: Denies: Abdominal Pain, Nausea, Vomiting Genitourinary: Reports: No Symptoms Musculoskeletal: Reports: Back Pain, Leg Pain Skin: Reports: No Symptoms Neurological: Reports: No Symptoms Psychiatric: Reports: No Symptoms - Patient Data Vitals - Most Recent: Last Vital Signs Temp 98.3 F 10/17/18 08:00 Pulse 80 10/17/18 08:08 Resp 18 10/17/18 08:00 BP 126/84 10/17/18 08:08 Pulse Ox 95 10/17/18 08:00 Weight - Most Recent: 295 lb 8 oz I&O - Last 24 hours: Intake & Output 10/16/18 10/17/18 10/17/18 22:59 06:59 14:59 Intake Total 200 Balance 200 Lab Results - Last 24 hrs: Laboratory Results - last 24 hr 10/16/18 10/16/18 10/16/18 Range/Units 11:51 16:58 19:59 POC Glucose 136 H 185 H 342 H (75-105) mg/dl 10/17/18 Range/Units 08:04 POC Glucose 243 H (75-105) mg/dl Med Orders - Current: Current Medications Acetaminophen (Tylenol) 650 mg PO Q4H PRN PRN Reason: Pain (Mild 1-3)/fever Albuterol (Ventolin Hfa) 0 gm INH Q6H PRN PRN Reason: Dyspnea Albuterol/Ipratropium (Duoneb 3.0-0.5 Mg/3 Ml) 3 ml NEB QID [facility] [place] Last Admin: 10/17/18 08:07 Dose: 3 ml Apixaban (Eliquis) 5 mg PO BID [facility] Last Admin: 10/17/18 08:08 Dose: 5 mg Docusate Sodium (Colace) 100 mg PO BID PRN PRN Reason: Constipation Insulin Aspart (Novolog) 0 unit SUBCUT WITHMEALSANDBED [facility]; Protocol Last Admin: 10/17/18 08:22 Dose: 4 units Insulin Human Isoph/Insulin Regular (Humulin 70-30) 30 units SUBCUT ACDINNER [facility] [place] Last Admin: 10/16/18 17:12 Dose: 30 units Insulin Human Isoph/Insulin Regular (Humulin 70-30) 56 - 60 units SUBCUT QAM [facility] Last Admin: 10/17/18 08:22 Dose: 60 units Isosorbide Mononitrate (Imdur) 30 mg PO DAILY [facility] Last Admin: 10/17/18 08:07 Dose: 30 mg Methylprednisolone Sodium Succinate (Solu-Medrol) 62.5 mg IVPUSH Q24H [facility] [place] Last Admin: 10/16/18 13:31 Dose: 62.5 mg Metoprolol Succinate (Toprol Xl) 100 mg PO DAILY [facility] [place] Last Admin: 10/17/18 08:08 Dose: 100 mg Ptom Liraglutide ([Victoza] 1.8 Mg) 1.8 mg SQ DAILY [facility] Last Admin: 10/17/18 08:10 Dose: 1.8 mg Oxycodone HCl (Oxycodone) 5 mg PO Q4H PRN PRN Reason: Pain Last Admin: 10/16/18 07:45 Dose: 5 mg Potassium Chloride (Klor-Con 10) 40 meq PO TID [facility] [place] Last Admin: 10/17/18 08:07 Dose: 40 meq Pramipexole Dihydrochloride (Mirapex) 3 mg PO BEDTIME [facility] Last Admin: 10/16/18 19:38 Dose: 3 mg Simvastatin (Zocor) 20 mg PO DAILY [facility] Last Admin: 10/17/18 08:08 Dose: 20 mg Discontinued Medications Sodium Chloride (Normal Saline) 500 mls @ 75 mls/hr IV ASDIRECTED [facility] Stop: 10/14/18 20:54 Last Admin: 10/14/18 15:03 Dose: 75 mls/hr Insulin Aspart (Novolog) 0 unit SUBCUT WITHMEALSANDBED [facility] [place]; Protocol Last Admin: 10/14/18 22:19 Dose: Not Given Metformin HCl (Glucophage) 1,000 mg PO BID [facility] [place] - Exam General: Reports: Alert, Oriented HEENT: Reports: Mucous Membr. Moist/[place] Neck: Reports: Supple Lungs: Reports: Clear to Auscultation, Normal Respiratory Effort Cardiovascular: Reports: Regular Rate, Regular Rhythm GI/Abdominal Exam: Normal Bowel Sounds, Soft, Non-Tender Extremities: Normal Inspection, Other (venous stasis changes to lower extremities; 1+ edema in legs) Skin: Reports: Warm, Dry Neurological: Reports: No New Focal Deficit
== END 2018-10-17 10:38 | disposition home or self-care (01) | DRG 469 ==
LOC: CC.FCMC 11:21 → CC.MS 11:21 → UNDOADMIN 12:49 → CC.MS 12:49
PROVIDERS: ADMIT Physician Assistant Medical; ATTEND Family Medicine
DX: N17.9 Acute kidney failure, unspecified (principal); I95.9 Hypotension, unspecified; E86.0 Dehydration; I48.91 Unspecified atrial fibrillation; D68.9 Coagulation defect, unspecified; G56.03 Carpal tunnel syndrome, bilateral upper limbs; I13.0 Hypertensive heart and chronic kidney disease with heart failure and stage 1 through stage 4 chronic kidney disease, or unspecified chronic kidney disease; I50.9 Heart failure, unspecified; N18.3 Chronic kidney disease, stage 3 (moderate); E11.22 Type 2 diabetes mellitus with diabetic chronic kidney disease; F32.9 Major depressive disorder, single episode, unspecified; F41.9 Anxiety disorder, unspecified; E11.42 Type 2 diabetes mellitus with diabetic polyneuropathy; E78.00 Pure hypercholesterolemia, unspecified; E05.90 Thyrotoxicosis, unspecified without thyrotoxic crisis or storm; G47.30 Sleep apnea, unspecified; N40.1 Benign prostatic hyperplasia with lower urinary tract symptoms; R35.1 Nocturia; E11.43 Type 2 diabetes mellitus with diabetic autonomic (poly)neuropathy; K31.84 Gastroparesis; M10.341 Gout due to renal impairment, right hand; E78.5 Hyperlipidemia, unspecified; K21.9 Gastro-esophageal reflux disease without esophagitis; G25.81 Restless legs syndrome; E55.9 Vitamin D deficiency, unspecified; Z96.649 Presence of unspecified artificial hip joint; Z98.49 Cataract extraction status, unspecified eye; Z91.19 Patient's noncompliance with other medical treatment and regimen; Z88.8 Allergy status to other drugs, medicaments and biological substances; Z79.01 Long term (current) use of anticoagulants; Z79.4 Long term (current) use of insulin; Z85.89 Personal history of malignant neoplasm of other organs and systems; Z85.51 Personal history of malignant neoplasm of bladder; Z85.46 Personal history of malignant neoplasm of prostate; Z95.0 Presence of cardiac pacemaker; E66.9 Obesity, unspecified; I42.9 Cardiomyopathy, unspecified; Z68.36 Body mass index [BMI] 36.0-36.9, adult
CPT/HCPCS: 36415; 80048; 80053; 82962; 84550; 85025; 93005; 94640; A9270-GY; J2930; J7030; J7620-GY

== ENCOUNTER → 2018-11-24 | Day surgery (SDC) | payer BC, MEDICARE ==
[~2018-11-24] MED LIST: Lactated Ringers 1,000 ML IV SCH; Lidocaine 1% 20 ML MDV ONE; Midazolam 1 MG/ML 2 ML SDV IV ONE; Propofol 200 MG/20 ML SDV IV ONE; fentaNYL 100 MCG/2 ML SDV IV ONE
[2018-11-24 09:52] VITALS: BP 107/56
--- NOTE | 2018-11-24 12:04 | OR ---
DATE OF OPERATION: 11/24/2018 PREOPERATIVE DIAGNOSIS: RIGHT CARPAL TUNNEL SYNDROME. POSTOPERATIVE DIAGNOSIS: RIGHT CARPAL TUNNEL SYNDROME. SURGEON: Parth Amezcua MD PROCEDURE: RIGHT CARPAL TUNNEL RELEASE. ANESTHESIA: Local plus MAC. SPECIMEN: None. INDICATIONS: This 63-year-old male has significant right carpal tunnel syndrome. DESCRIPTION OF PROCEDURE: After adequate preparation, 1% Xylocaine was used to infiltrate an area around the skin over the palmar crease in the right hand. An incision was made and carried down to the transverse carpal ligament. The ligament was identified and then anesthetized with lidocaine. Using sharp dissection, the carpal tunnel was incised down full-thickness to expose the median nerve. A hemostat was placed underneath the carpal tunnel ligament and the rest of it completely divided from proximal to distal. There was some bleeding in the distal end, pressure was held on this and seemed to be adequate. The wound was closed using interrupted 2-0 Prolene sutures for the skin. These will be removed in 10 days. No complications during the procedure. COLLIN/UDAY /[id number]
== END ==
LOC: CC.SDS 06:45
PROVIDERS: ATTEND Surgery
DX: G56.03 Carpal tunnel syndrome, bilateral upper limbs (principal); I13.0 Hypertensive heart and chronic kidney disease with heart failure and stage 1 through stage 4 chronic kidney disease, or unspecified chronic kidney disease; E11.22 Type 2 diabetes mellitus with diabetic chronic kidney disease; N18.9 Chronic kidney disease, unspecified; I50.9 Heart failure, unspecified; E11.40 Type 2 diabetes mellitus with diabetic neuropathy, unspecified; E66.9 Obesity, unspecified; Z68.37 Body mass index [BMI] 37.0-37.9, adult; G47.33 Obstructive sleep apnea (adult) (pediatric); E78.00 Pure hypercholesterolemia, unspecified; E05.90 Thyrotoxicosis, unspecified without thyrotoxic crisis or storm; F41.8 Other specified anxiety disorders; I48.91 Unspecified atrial fibrillation; Z79.01 Long term (current) use of anticoagulants; Z79.4 Long term (current) use of insulin
CPT/HCPCS: J2250; J2704; J3010; J7120

== ENCOUNTER → 2018-11-25 | Day surgery (SDC) | payer BC ==
[~2018-11-25] MED LIST changes: -Lidocaine 1% 20 ML MDV ONE; -Propofol 200 MG/20 ML SDV IV ONE
[2018-11-25 17:38] VITALS: BP 106/76
--- NOTE | 2018-11-26 00:13 | OR ---
DATE OF OPERATION: 11/25/2018 PREOPERATIVE DIAGNOSIS: POSTOP HEMATOMA, RIGHT HAND. POSTOPERATIVE DIAGNOSIS: POSTOP HEMATOMA, RIGHT HAND. SURGEON: Parth Amezcua MD PROCEDURE: EVACUATION OF RIGHT HAND HEMATOMA. ANESTHESIA: Conscious sedation with IV Versed and fentanyl. SPECIMEN: None. INDICATIONS: This 63-year-old male had a right carpal tunnel syndrome yesterday. He has a moderate amount of swelling this morning on his exam. The hand seems to be soft, but edematous. I do not imagine that this is tense enough to be a compartment syndrome. However, he does complain of more pain than I think he should have, and I really cannot explain much of the edema or swelling in the hand. I elected to open a part of this incision and evacuate what I could get out. DESCRIPTION OF PROCEDURE: After adequate preparation, the 2 distal sutures in the palmar crease were taken out. The skin was and a Yankauer suction placed within the wound. This was irrigated both proximally and distally in the palm of the hand. I evacuated about 10 mL of clot and blood. I had expected quite a bit more, however. I irrigated this with saline and could not retrieve any more clot. I decided to leave this distal part of the incision open and packed it with a half-inch plain gauze. The pack will be removed in 2 days. The hand was wrapped sterilely, and the patient was taken to recovery room. COLLIN/UDAY /[id number]
== END ==
LOC: CC.SDS 14:16
PROVIDERS: ATTEND Surgery
DX: L76.32 Postprocedural hematoma of skin and subcutaneous tissue following other procedure (principal); I13.0 Hypertensive heart and chronic kidney disease with heart failure and stage 1 through stage 4 chronic kidney disease, or unspecified chronic kidney disease; E11.22 Type 2 diabetes mellitus with diabetic chronic kidney disease; N18.9 Chronic kidney disease, unspecified; I50.9 Heart failure, unspecified; E11.40 Type 2 diabetes mellitus with diabetic neuropathy, unspecified; F41.8 Other specified anxiety disorders; Z68.37 Body mass index [BMI] 37.0-37.9, adult; Z79.01 Long term (current) use of anticoagulants; Z79.4 Long term (current) use of insulin; Z79.899 Other long term (current) drug therapy; Z88.8 Allergy status to other drugs, medicaments and biological substances
CPT/HCPCS: J2250; J3010; J7120

== ENCOUNTER 2019-01-21 06:04 | Emergency (ER) | payer BC ==
[2019-01-21] MEDS ORDERED: Cyclobenzaprine 10 MG Tab PO ONE (06:05)
[2019-01-21 06:25] VITALS: BP 109/66
[2019-01-21 06:47] LABS: CHLORIDE,CL 100 mEq/L (98-106); SODIUM,NA 142 mEq/L (136-145)
[2019-01-21] MEDS ORDERED: Take Home: Cyclobenzaprine 10 MG Tab, 4 Tab Pack PO ONE (07:30)
--- NOTE | 2019-01-21 07:31 | EDM.PDOC ---
ED HPI GENERAL MEDICAL PROBLEM - General Chief Complaint: Flank Pain Stated Complaint: "I think my kidneys are giving me trouble" Time Seen by Provider: 01/21/19 06:35 Source of Information: Reports: Patient History Limitations: Reports: No Limitations - History of Present Illness INITIAL COMMENTS - FREE TEXT/NARRATIVE: Ger is a 63 year old male who presents to the ED with c/o left flank/mid back pain radiating to the right side. He reports he has had this pain for the past two weeks. Is worried it's his kidneys as he has CKD. He denies any urinary symptoms. Reports pain is made worse by lying down. Reports he couldn't sleep through the night due to the pain. Denies any known injury to the area. Has tried his oxycodone and Dilaudid for the pain. Onset Date: 01/13/19 Duration: Intermittent Location: Reports: Back (left mid back) Quality: Reports: Ache, Other (spasm) Severity: Moderate Improves with: Reports: Medication Worsens with: Reports: Other (lying on back) Associated Symptoms: Denies: Confusion, Chest Pain, Cough, cough w sputum, Diaphoresis, Fever/Chills, Headaches, Loss of Appetite, Malaise, Nausea/Vomiting , Rash, Seizure, Shortness of Breath, Syncope, Weakness Treatments WELFARE SUPERVISOR: Reports: Other Medication(s) (oxycodone and dilaudid) Left Flank Pain Score (Numeric/FACES): 6 - Related Data Allergies Allergy/AdvReac Type Severity Reaction Status Date / Time amiodarone Allergy Other Verified 01/21/19 06:40 Home Meds: Home Meds Pramipexole Di-HCl [Mirapex ER] 3 mg PO BEDTIME 12/22/13 [History] Simvastatin [Zocor] 20 mg PO DAILY 12/22/13 [History] Candesartan [Atacand] 4 mg PO DAILY 01/26/15 [History] Albuterol Sulfate [Proair Hfa] 2 puff INH Q6H PRN 11/24/15 [History] Metoprolol Succinate [Toprol XL] 150 mg PO DAILY 11/24/15 [History] Insuln Asp Prot/Insulin Aspart [NovoLOG Mix 70-30] 30 units SUBCUT ACDINNER 03/08 [History] Insuln Asp Prot/Insulin Aspart [NovoLOG Mix 70-30] 56 - 60 units SUBCUT QAM 03/08 [History] metFORMIN HCl [Metformin HCl] 1,000 mg PO BID 10/27/16 [History] Liraglutide [Victoza] 1.8 mg SQ BID 07/07/17 [History] Bumetanide [Bumex] 4 mg PO DAILY 11/10/17 [History] Potassium Chloride 40 meq PO TID 11/10/17 [History] metOLazone [Metolazone] 2.5 mg PO DAILY PRN 11/10/17 [History] Apixaban [Eliquis] 5 mg PO BID 08/08/18 [History] Isosorbide Mononitrate [Isosorbide Mononitrate ER] 30 mg PO DAILY 08/08/18 [ History] Sildenafil Citrate [Sildenafil] 10 mg PO BID 08/08/18 [History] oxyCODONE HCl [Roxicodone] 1 - 2 tab PO Q4H PRN 08/08/18 [History] HYDROmorphone [Dilaudid] 1 tab PO ASDIRECTED PRN 11/25/18 [History] Cyclobenzaprine [Flexeril] 10 mg PO TID PRN #20 tab 01/21/19 [Rx] Past Medical History HEENT History: Reports: Cataract Cardiovascular History: Reports: High Cholesterol, Pacemaker Other Cardiovascular History: CHF Respiratory History: Reports: Bronchitis, Recurrent Other Respiratory History: Emphysema Genitourinary History: Reports: Acute Renal Failure Neurological History: Reports: Neuropathy, Diabetic Psychiatric History: Reports: Depression Endocrine/Metabolic History: Reports: Diabetes, Type II Oncologic (Cancer) History: Reports: Bladder, Prostate Other Dermatologic History: CELLULITIS/BURSITIS OF RIGHT KNEE - Past Surgical History HEENT Surgical History: Reports: Detached Retina Cardiovascular Surgical History: Reports: Other (See Below) Other Cardiovascular Surgeries/Procedures: CARDIOVERSION GI Surgical History: Reports: Cholecystectomy, Hernia Repair/Other Neurological Surgical History: Reports: C-Spine Other Musculoskeletal Surgeries/Procedures:: ULNAR NERVES ON BOTH ARMS DONE, BACK SURGERIES, NECK SURGERY Social & Family History - Family History Family Medical History: Noncontributory - Tobacco Use Smoking Status *Q: Never Smoker Second Hand Smoke Exposure: No - Caffeine Use Caffeine Use: Reports: Soda - Living Situation & Occupation Living situation: Reports: , with Spouse Occupation: Retired [facility] [employer] Review of Systems Review Of Systems: ROS reveals no pertinent complaints other than HPI. ED EXAM,LOWER BACK PAIN/INJURY - Physical Exam Exam: See Below Exam Limited By: No Limitations General Appearance: Alert, WD/WN, No Apparent Distress Head: Atraumatic, Normocephalic Neck: Normal Inspection, Supple, Non-Tender, Full Range of Motion Respiratory/Chest: No Respiratory Distress, Lungs Clear, Normal Breath Sounds, No Accessory Muscle Use, Chest Non-Tender Cardiovascular: Normal Peripheral Pulses, Regular Rate, Rhythm, No Edema, No Gallop, No JVD, No Murmur, No Rub GI/Abdominal: Normal Bowel Sounds, Soft, Non-Tender, No Organomegaly, No Distention, No Abnormal Bruit, No Mass Back Exam: Decreased Range of Motion, Muscle Spasm (left flank), Paraspinal Tenderness (mid thoracic on left). No: CVA Tenderness (L), CVA Tenderness (R) Neurological: Alert, Normal Mood/Affect, Normal Dorsiflexion, CN II-XII Intact, Normal Plantar Flexion, Normal Gait, Normal Reflexes, No Motor/Sensory Deficits , Oriented x 3 Psychiatric: Normal Affect, Normal Mood Skin Exam: Intact Course - Vital Signs Last Recorded V/S: Last Vital Signs Temp 97.7 F 01/21/19 06:23 Pulse 65 01/21/19 06:23 Resp 20 01/21/19 06:23 BP 109/66 01/21/19 06:23 Pulse Ox 97 01/21/19 06:23 - Orders/Labs/Meds Labs: Laboratory Tests 01/21/19 01/21/19 01/21/19 Range/Units 06:33 06:33 06:33 WBC 7.9 (5.0-10.0) 10^3/uL RBC 4.90 (4.50-6.00) 10^6/uL Hgb 13.7 L (14.0-18.0) g/dL Hct 42.7 (40.0-54.0) % MCV 87.1 (82.0-94.0) fL MCH 28.0 (27.0-32.0) pg MCHC 32.1 L (33.0-38.0) g/dL RDW Coeff of Teja 15.0 (11.0-15.0) % Plt Count 223 (150-400) 10^3/uL Neut % (Auto) 66.1 (35-85) % Lymph % (Auto) 24.4 (10-55) % [place] % (Auto) 7.4 (0-16) % Eos % (Auto) 2.0 (0-5) % Baso % (Auto) 0.1 (0-3) % Neut # (Auto) 5.24 (1.80-7.00) 10^3/uL Lymph # (Auto) 1.94 (1.00-4.80) 10^3/uL [place] # (Auto) 0.59 (0.00-0.80) 10^3/uL Eos # (Auto) 0.16 (0.00-0.45) 10^3/uL Baso # (Auto) 0.01 10^3/uL Sodium 142 (136-145) mEq/L Potassium 3.3 L D (3.5-5.0) mEq/L Chloride 100 (98-106) mEq/L Carbon Dioxide 34 H (21-32) mmol/L BUN 37 H (7-18) mg/dL Creatinine 1.6 H (0.7-1.3) mg/dL Est Cr Clr Drug Dosing TNP Estimated GFR (MDRD) 44 L (>=60) mL/min Glucose 114 H D (75-99) mg/dL Calcium 9.2 (8.4-10.1) mg/dL C-Reactive Protein 0.2 (0.2-0.8) mg/dL Urine Color Yellow (YELLOW) Urine Appearance Clear (CLEAR) Urine pH 5.0 (4.5-8.0) Ur Specific [place] 1.015 (1.003-1.020) Urine Protein Negative (NEGATIVE) mg/dL Urine Glucose (UA) Negative (NEGATIVE) mg/dL Urine Ketones Negative (NEGATIVE) mg/dL Urine Occult Blood Negative (NEGATIVE) Urine Nitrite Negative (NEGATIVE) Urine Bilirubin Negative (NEGATIVE) Urine Urobilinogen 0.2 (0.2-1.0) EU/dL Ur Leukocyte Esterase Negative (NEGATIVE) Meds: Medications Discontinued Medications Generic Name Dose Route Start Last Admin Trade Name Freq PRN Reason Stop Dose Admin Cyclobenzaprine HCl 1 packet 01/21/19 07:30 Take Home: Cyclobenzaprine 10 Mg, 4 Tab Pack PO 01/21/19 07:31 ONETIME ONE - Re-Assessments/Exams Free Text/Narrative Re-Assessment/Exam: 01/21/19 07:25 Discussed lab and xray findings with patient. Labs all stable. Xray does show degeneration through lumbar and thoracic spine. Discussed that area where tenderness is is musculoskeletal. Recommend PT, ice/heat. Departure - Departure Time of Disposition: 07:26 Disposition: Home, Self-Care 01 Condition: Good Clinical Impression: Spasm of muscle of lower back, Degenerative disc disease, thoracic, Degenerative lumbar disc - Discharge Information *PRESCRIPTION DRUG MONITORING PROGRAM REVIEWED*: Not Applicable *COPY OF PRESCRIPTION DRUG MONITORING REPORT IN PATIENT CHASITY: Not Applicable Prescriptions: Cyclobenzaprine [Flexeril] 10 mg PO TID PRN #20 tab PRN Reason: Pain Instructions: Muscle Cramps and Spasms, [id number] Referrals: PCP,None [Primary Care Provider] - Forms: ED Department Discharge Additional Instructions: - Flexeril 1 tablet every 8 hours as needed for spasm/pain - Heat/ice to affected area as needed - Tylenol or home pain meds as needed - Referral to PT. Call Wednesday to schedule appointment. - Avoid heavy lifting - Follow up with PCP for recheck
== END 2019-01-21 07:40 | disposition home or self-care (01) ==
LOC: CC.ED 06:04
DX: M51.14 Intervertebral disc disorders with radiculopathy, thoracic region (principal); M51.16 Intervertebral disc disorders with radiculopathy, lumbar region; E11.40 Type 2 diabetes mellitus with diabetic neuropathy, unspecified; I50.9 Heart failure, unspecified; Z79.4 Long term (current) use of insulin; Z79.899 Other long term (current) drug therapy; Z88.8 Allergy status to other drugs, medicaments and biological substances
CPT/HCPCS: 36415; 74019; 80048; 81003; 85025; 86140; 99284-25; A9270-GY

== ENCOUNTER 2019-03-07 23:39 | Emergency (ER) | payer BC ==
[2019-03-08 00:32] VITALS: BP 136/92; PULSE 100
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
== END 2019-03-08 00:50 | disposition home or self-care (01) ==
LOC: CC.ED 23:39
DX: T24.232D Burn of second degree of left lower leg, subsequent encounter (principal); E11.42 Type 2 diabetes mellitus with diabetic polyneuropathy; E11.22 Type 2 diabetes mellitus with diabetic chronic kidney disease; X08.8XXD Exposure to other specified smoke, fire and flames, subsequent encounter; Z79.899 Other long term (current) drug therapy
CPT/HCPCS: 99282

== ENCOUNTER 2019-04-13 08:52 | Emergency (ER) | payer BC ==
--- NOTE | 2019-04-13 09:38 | EDM.PDOC ---
ED HPI GENERAL MEDICAL PROBLEM - General Chief Complaint: Chest Pain Stated Complaint: HEART PAIN Time Seen by Provider: 04/13/19 09:10 Source of Information: Reports: Patient History Limitations: Reports: No Limitations - History of Present Illness INITIAL COMMENTS - FREE TEXT/NARRATIVE: Pt was sitting in chair and taking BP and developed some chest pain and SOB and he called Pat who told him to come to ER. Has been worked up with multiple tests and is scheduled to see Cash Application Clerk next week. He states that he has 2 leaking valves that they are considering fixing. He has had multiple lung tests and nothing has been found. He states that he gets SOB with activity and his sats always stay up in the upper 90's. He states that his BP was low when he took it at home 90/? When here it was in the 100's/. Chest pain did resolve on its own. Onset Date: 04/13/19 Location: Reports: Chest Associated Symptoms: Reports: Shortness of Breath Left Upper Chest Pain Score (Numeric/FACES): 4 - Related Data Allergies Allergy/AdvReac Type Severity Reaction Status Date / Time amiodarone Allergy Other Verified 04/13/19 09:59 Home Meds: Home Meds Pramipexole Di-HCl [Mirapex ER] 3 mg PO BEDTIME 12/22/13 [History] Simvastatin [Zocor] 20 mg PO DAILY 12/22/13 [History] Albuterol Sulfate [Proair Hfa] 2 puff INH Q6H PRN 11/24/15 [History] Metoprolol Succinate [Toprol XL] 150 mg PO DAILY 11/24/15 [History] Insuln Asp Prot/Insulin Aspart [NovoLOG Mix 70-30] 30 units SUBCUT ACDINNER 03/08 [History] Insuln Asp Prot/Insulin Aspart [NovoLOG Mix 70-30] 56 - 60 units SUBCUT QAM 03/08 [History] metFORMIN HCl [Metformin HCl] 1,000 mg PO BID 10/27/16 [History] Liraglutide [Victoza] 1.8 mg SQ BID 07/07/17 [History] Bumetanide [Bumex] 4 mg PO DAILY 11/10/17 [History] Potassium Chloride 40 meq PO TID 11/10/17 [History] metOLazone [Metolazone] 2.5 mg PO DAILY PRN 11/10/17 [History] Apixaban [Eliquis] 5 mg PO BID 08/08/18 [History] Isosorbide Mononitrate [Isosorbide Mononitrate ER] 30 mg PO DAILY 08/08/18 [ History] Sildenafil Citrate 10 mg PO BID 08/08/18 [History] oxyCODONE HCl [Roxicodone] 1 - 2 tab PO Q4H PRN 08/08/18 [History] Past Medical History HEENT History: Reports: Cataract Cardiovascular History: Reports: High Cholesterol, Pacemaker Other Cardiovascular History: CHF Respiratory History: Reports: Bronchitis, Recurrent Other Respiratory History: Emphysema Genitourinary History: Reports: Acute Renal Failure Neurological History: Reports: Neuropathy, Diabetic Psychiatric History: Reports: Depression Endocrine/Metabolic History: Reports: Diabetes, Type II Oncologic (Cancer) History: Reports: Bladder, Prostate Other Dermatologic History: CELLULITIS/BURSITIS OF RIGHT KNEE - Past Surgical History HEENT Surgical History: Reports: Detached Retina Cardiovascular Surgical History: Reports: Other (See Below) Other Cardiovascular Surgeries/Procedures: CARDIOVERSION GI Surgical History: Reports: Cholecystectomy, Hernia Repair/Other Neurological Surgical History: Reports: C-Spine Other Musculoskeletal Surgeries/Procedures:: ULNAR NERVES ON BOTH ARMS DONE, BACK SURGERIES, NECK SURGERY Social & Family History - Family History Family Medical History: Noncontributory - Caffeine Use Caffeine Use: Reports: Soda - Living Situation & Occupation Living situation: Reports: , with Spouse Occupation: Retired ED ROS GENERAL - Review of Systems Review Of Systems: See Below Constitutional: Denies: Fever, Chills HEENT: Reports: No Symptoms Respiratory: Reports: Shortness of Breath Cardiovascular: Reports: Chest Pain, Blood Pressure Problem, Edema GI/Abdominal: Reports: No Symptoms : Reports: No Symptoms Musculoskeletal: Reports: Other (legs feel weak.) Skin: Reports: No Symptoms Neurological: Reports: No Symptoms ED EXAM, GENERAL - Physical Exam Exam: See Below Exam Limited By: No Limitations General Appearance: Alert, WD/WN, Mild Distress Ears: Normal External Exam, Normal Canal, Normal TMs Nose: Normal Inspection Throat/Mouth: Normal Inspection, Normal Oropharynx Head: Atraumatic, Normocephalic Neck: Normal Inspection, Supple, Non-Tender Respiratory/Chest: No Respiratory Distress, Lungs Clear, Normal Breath Sounds. No: Rales, Wheezing Cardiovascular: Normal Peripheral Pulses, Irregularly Irregular, Other (trace edema) GI/Abdominal: Normal Bowel Sounds, Soft, Non-Tender, No Organomegaly Extremities: Normal Inspection, Normal Range of Motion, Non-Tender, Normal Capillary Refill, Pedal Edema (trace bilaterally.) Neurological: Alert, Oriented Psychiatric: Normal Affect Skin Exam: Warm, Dry, Intact Course - Vital Signs Last Recorded V/S: Last Vital Signs Temp 97.5 F 04/13/19 09:45 Pulse 77 04/13/19 09:45 Resp 20 04/13/19 09:45 BP 108/59 L 04/13/19 09:45 Pulse Ox 97 04/13/19 09:45 - Orders/Labs/Meds Labs: Laboratory Tests 04/13/19 04/13/19 04/13/19 Range/Units 09:06 09:06 09:06 WBC 9.5 (5.0-10.0) 10^3/uL RBC 5.01 (4.50-6.00) 10^6/uL Hgb 13.8 L (14.0-18.0) g/dL Hct 43.5 (40.0-54.0) % MCV 86.8 (82.0-94.0) fL MCH 27.5 (27.0-32.0) pg MCHC 31.7 L (33.0-38.0) g/dL RDW Coeff of Teja 15.8 H (11.0-15.0) % Plt Count 209 (150-400) 10^3/uL Neut % (Auto) 73.0 (35-85) % Lymph % (Auto) 18.8 (10-55) % [place] % (Auto) 7.0 (0-16) % Eos % (Auto) 1.0 (0-5) % Baso % (Auto) 0.2 (0-3) % Neut # (Auto) 6.92 (1.80-7.00) 10^3/uL Lymph # (Auto) 1.78 (1.00-4.80) 10^3/uL [place] # (Auto) 0.66 (0.00-0.80) 10^3/uL Eos # (Auto) 0.09 (0.00-0.45) 10^3/uL Baso # (Auto) 0.02 10^3/uL PT 11.9 (9.7-12.3) SEC INR 1.17 (0.92-1.18) APTT 30.3 (23.2-32.3) SEC Sodium 139 (136-145) mEq/L Potassium 3.6 (3.5-5.0) mEq/L Chloride 100 (98-106) mEq/L Carbon Dioxide 32 (21-32) mmol/L BUN 33 H (7-18) mg/dL Creatinine 1.6 H (0.7-1.3) mg/dL Est Cr Clr Drug Dosing 58.02 mL/min Estimated GFR (MDRD) 44 L (>=60) mL/min Glucose 239 H D (75-99) mg/dL Calcium 9.7 (8.4-10.1) mg/dL Total Bilirubin 1.8 H (0.0-1.0) mg/dL AST 39 H (15-37) U/L ALT 30 (12-78) U/L Alkaline Phosphatase 155 H (46-116) U/L Lactate Dehydrogenase 238 H (100-190) U/L Creatine Kinase 217 (35-232) U/L Troponin I 0.167 H (0.00-0.06) ng/mL Total Protein 7.5 (6.4-8.2) g/dL Albumin 3.8 (3.4-5.0) g/dL - Re-Assessments/Exams Free Text/Narrative Re-Assessment/Exam: 04/13/19 09:30 In to discuss all normal labs and no acute changes on the EKG or CXR. BP is stable. Will discharge at this time. Departure - Departure Time of Disposition: 09:43 Disposition: Home, Self-Care 01 Clinical Impression: Atypical chest pain, Acute on chronic renal insufficiency Referrals: Casey Cummings PA-C [Primary Care Provider] - Forms: ED Department Discharge Additional Instructions: continue to monitor BP at home as requested per Pat Follow up with pat as requested Recheck for new concerns. - Problem List & Annotations (1) Atypical chest pain SNOMED Code(s): 362350940 Code(s): R07.89 - OTHER CHEST PAIN Status: Acute Priority: High (2) Acute on chronic renal insufficiency SNOMED Code(s): 138606877 Code(s): N28.9 - DISORDER OF KIDNEY AND URETER, UNSPECIFIED; N18.9 - CHRONIC KIDNEY DISEASE, UNSPECIFIED Status: Chronic Priority: High - Problem List Review Problem List Initiated/Reviewed/Updated: Yes
[2019-04-13 13:44] VITALS: BP 108/59
== END 2019-04-13 09:54 | disposition home or self-care (01) ==
LOC: CC.ED 08:52
DX: R07.89 Other chest pain (principal); E11.22 Type 2 diabetes mellitus with diabetic chronic kidney disease; N18.9 Chronic kidney disease, unspecified; E11.40 Type 2 diabetes mellitus with diabetic neuropathy, unspecified; I50.9 Heart failure, unspecified; J43.9 Emphysema, unspecified; E78.00 Pure hypercholesterolemia, unspecified; Z79.4 Long term (current) use of insulin; Z79.01 Long term (current) use of anticoagulants; Z79.899 Other long term (current) drug therapy
CPT/HCPCS: 36415; 71046; 80053; 82550; 83615; 84484; 85025; 85610; 85730; 93005; 99285-25

== ENCOUNTER 2019-05-26 10:01 | Emergency (ER) | payer BC, OTHER ==
--- NOTE | 2019-05-26 10:45 | EDM.PDOC ---
ED HPI GENERAL MEDICAL PROBLEM - General Chief Complaint: Cardiovascular Problem Stated Complaint: palpitations Time Seen by Provider: 05/26/19 10:30 Source of Information: Reports: Patient History Limitations: Reports: No Limitations - History of Present Illness INITIAL COMMENTS - FREE TEXT/NARRATIVE: Ger is a 64 year old male who presents to the ED with c/o shortness of breath and fatigue. He reports that his pulse has been 115-120 the past week. He had a cardioversion approximately 1 month ago. Reports he has been monitoring his pulse and the past week it has been elevated. He reports he called clinic in [place] and they recommended he come to ED. He denies any chest pain, fever, chills, cough. Reports he just feels weak and fatigued. Has not been able to sleep the last few nights. Denies any other complaints. He is anticoagulated with Eliquis for recurrent a fib/a flutter. Follows with cardiology at [facility]. Associated Symptoms: Reports: Shortness of Breath, Weakness. Denies: Confusion , Chest Pain, Cough, cough w sputum, Diaphoresis, Fever/Chills, Headaches, Loss of Appetite, Malaise, Nausea/Vomiting, Rash, Seizure, Syncope - Related Data Allergies Allergy/AdvReac Type Severity Reaction Status Date / Time amiodarone Allergy Other Verified 05/26/19 10:12 Home Meds: Home Meds Pramipexole Di-HCl [Mirapex ER] 3 mg PO BEDTIME 12/22/13 [History] Simvastatin [Zocor] 20 mg PO DAILY 12/22/13 [History] Albuterol Sulfate [Proair Hfa] 2 puff INH Q6H PRN 11/24/15 [History] Metoprolol Succinate [Toprol XL] 50 mg PO DAILY 11/24/15 [History] Insuln Asp Prot/Insulin Aspart [NovoLOG Mix 70-30] 30 units SUBCUT ACDINNER 03/08 [History] Insuln Asp Prot/Insulin Aspart [NovoLOG Mix 70-30] 56 - 60 units SUBCUT QAM 03/08 [History] metFORMIN HCl [Metformin HCl] 1,000 mg PO BID 10/27/16 [History] Liraglutide [Victoza] 1.8 mg SQ BID 07/07/17 [History] Bumetanide [Bumex] 4 mg PO DAILY 11/10/17 [History] Potassium Chloride 40 meq PO TID 11/10/17 [History] metOLazone [Metolazone] 2.5 mg PO DAILY PRN 11/10/17 [History] Apixaban [Eliquis] 5 mg PO BID 08/08/18 [History] Isosorbide Mononitrate [Isosorbide Mononitrate ER] 30 mg PO DAILY 08/08/18 [ History] Sildenafil Citrate 10 mg PO BID 08/08/18 [History] oxyCODONE HCl [Roxicodone] 1 - 2 tab PO Q4H PRN 08/08/18 [History] Past Medical History HEENT History: Reports: Cataract Cardiovascular History: Reports: High Cholesterol, Pacemaker Other Cardiovascular History: CHF Respiratory History: Reports: Bronchitis, Recurrent Other Respiratory History: Emphysema Genitourinary History: Reports: Acute Renal Failure Neurological History: Reports: Neuropathy, Diabetic Psychiatric History: Reports: Depression Endocrine/Metabolic History: Reports: Diabetes, Type II Oncologic (Cancer) History: Reports: Bladder, Prostate Other Dermatologic History: CELLULITIS/BURSITIS OF RIGHT KNEE - Past Surgical History HEENT Surgical History: Reports: Detached Retina Cardiovascular Surgical History: Reports: Other (See Below) Other Cardiovascular Surgeries/Procedures: CARDIOVERSION GI Surgical History: Reports: Cholecystectomy, Hernia Repair/Other Neurological Surgical History: Reports: C-Spine Other Musculoskeletal Surgeries/Procedures:: ULNAR NERVES ON BOTH ARMS DONE, BACK SURGERIES, NECK SURGERY Social & Family History - Family History Family Medical History: Noncontributory - Tobacco Use Smoking Status *Q: Never Smoker Second Hand Smoke Exposure: No - Caffeine Use Caffeine Use: Reports: None - Recreational Drug Use Recreational Drug Use: No - Living Situation & Occupation Living situation: Reports: , with Spouse Occupation: Retired ED ROS GENERAL - Review of Systems Review Of Systems: ROS reveals no pertinent complaints other than HPI. ED EXAM, GENERAL - Physical Exam Exam: See Below Exam Limited By: No Limitations General Appearance: Alert, WD/WN, No Apparent Distress Eye Exam: Bilateral Eye: EOMI, Normal Fundi, Normal Inspection, PERRL Nose: Normal Inspection, Normal Mucosa, No Blood Throat/Mouth: Normal Inspection, Normal Lips, Normal Teeth, Normal Gums, Normal Oropharynx, Normal Voice, No Airway Compromise Head: Atraumatic, Normocephalic Neck: Normal Inspection, Supple, Non-Tender, Full Range of Motion Respiratory/Chest: No Respiratory Distress, Lungs Clear, Normal Breath Sounds, No Accessory Muscle Use, Chest Non-Tender Cardiovascular: Regular Rate, Rhythm, No JVD, Tachycardia. No: Irregularly Irregular GI/Abdominal: Normal Bowel Sounds, Soft, Non-Tender, No Organomegaly, No Distention, No Abnormal Bruit, No Mass Extremities: Normal Range of Motion, Non-Tender Neurological: Alert, Oriented, CN II-XII Intact, Normal Cognition, Normal Gait, Normal Reflexes, No Motor/Sensory Deficits Psychiatric: Normal Affect, Normal Mood Skin Exam: Warm, Dry Course - Vital Signs Last Recorded V/S: Last Vital Signs Temp 97.2 F 05/26/19 10:10 Pulse 107 H 05/26/19 11:38 Resp 18 05/26/19 11:38 BP 119/85 05/26/19 11:38 Pulse Ox 97 05/26/19 11:38 - Orders/Labs/Meds Labs: Laboratory Tests 05/26/19 05/26/19 05/26/19 Range/Units 10:30 10:30 10:32 WBC 7.7 (5.0-10.0) 10^3/uL RBC 4.99 (4.50-6.00) 10^6/uL Hgb 13.3 L (14.0-18.0) g/dL Hct 42.5 (40.0-54.0) % MCV 85.2 (82.0-94.0) fL MCH 26.7 L (27.0-32.0) pg MCHC 31.3 L (33.0-38.0) g/dL RDW Coeff of Teja 16.9 H (11.0-15.0) % Plt Count 205 (150-400) 10^3/uL Neut % (Auto) 73.6 (35-85) % Lymph % (Auto) 18.0 (10-55) % [place] % (Auto) 6.3 (0-16) % Eos % (Auto) 1.8 (0-5) % Baso % (Auto) 0.3 (0-3) % Neut # (Auto) 5.63 (1.80-7.00) 10^3/uL Lymph # (Auto) 1.38 (1.00-4.80) 10^3/uL [place] # (Auto) 0.48 (0.00-0.80) 10^3/uL Eos # (Auto) 0.14 (0.00-0.45) 10^3/uL Baso # (Auto) 0.02 10^3/uL APTT 27.1 (23.2-32.3) SEC Sodium 143 (136-145) mEq/L Potassium 4.0 (3.5-5.0) mEq/L Chloride 102 (98-106) mEq/L Carbon Dioxide 33 H (21-32) mmol/L BUN 38 H (7-18) mg/dL Creatinine 1.7 H (0.7-1.3) mg/dL Est Cr Clr Drug Dosing 54.60 mL/min Estimated GFR (MDRD) 41 L (>=60) mL/min Glucose 248 H (75-99) mg/dL Calcium 9.4 (8.4-10.1) mg/dL Magnesium 1.9 (1.8-2.4) mg/dL Total Bilirubin 0.9 (0.0-1.0) mg/dL AST 27 (15-37) U/L ALT 25 (12-78) U/L Alkaline Phosphatase 135 H (46-116) U/L Troponin I 0.111 H (0.00-0.06) ng/mL Total Protein 6.9 (6.4-8.2) g/dL Albumin 3.4 (3.4-5.0) g/dL Meds: Medications Discontinued Medications Generic Name Dose Route Start Last Admin Trade Name Freq PRN Reason Stop Dose Admin Furosemide 20 mg 05/26/19 12:35 05/26/19 12:55 Lasix PO 05/26/19 12:36 20 mg ONETIME ONE Administration - Re-Assessments/Exams Free Text/Narrative Re-Assessment/Exam: 05/26/19 11:20 Consulted with [facility] cardiology. Awaiting call back. 05/26/19 11:[address] Steele cardiology. Reports he will review EKG when able. 05/26/19 12:21 Call back received from Dr. Steele. Does believe there are P waves present on EKG. Recommends increasing his Toprol XL to 100 mg daily and give extra dose of lasix. Keep follow up appointment with apprentice painter neckties Wednesday as scheduled. Departure - Departure Time of Disposition: 12:28 Disposition: Home, Self-Care 01 Condition: Fair Clinical Impression: 1st degree AV block, Tachyarrhythmia Congestive heart failure Qualifiers: Heart failure type: systolic Heart failure chronicity: chronic Qualified Code(s ): I50.22 - Chronic systolic (congestive) heart failure Chronic kidney disease Qualifiers: Chronic kidney disease stage: stage 3 (moderate) Qualified Code(s): N18.3 - Chronic kidney disease, stage 3 (moderate) Instructions: Heart Failure, [id number] Referrals: Casey Cummings PA-C [Primary Care Provider] - Forms: ED Department Discharge Additional Instructions: - Increase Toprol Xl to 100 mg daily. Take an extra 50 mg dose when you get home and then start 2 tablets daily tomorrow. - Monitor BP through the weekend. Hold extra 50 mg dose of metoprolol if pulse less than 55 or systolic BP less than 100. - No strenuous activity over the weekend - Follow up with cardiology Wednesday05/29/2019 as scheduled - Problem List & Annotations (1) 1st degree AV block SNOMED Code(s): 130468266 Code(s): I44.0 - ATRIOVENTRICULAR BLOCK, FIRST DEGREE Status: Acute (2) Chronic kidney disease SNOMED Code(s): 188668046 Code(s): N18.9 - CHRONIC KIDNEY DISEASE, UNSPECIFIED Status: Acute Qualifiers: Chronic kidney disease stage: stage 3 (moderate) Qualified Code(s): N18.3 - Chronic kidney disease, stage 3 (moderate) (3) Congestive heart failure SNOMED Code(s): 66196045 Code(s): I50.9 - HEART FAILURE, UNSPECIFIED Status: Acute Qualifiers: Heart failure type: systolic Heart failure chronicity: chronic Qualified Code(s): I50.22 - Chronic systolic (congestive) heart failure (4) Tachyarrhythmia SNOMED Code(s): 1951673 Code(s): R00.0 - TACHYCARDIA, UNSPECIFIED Status: Acute - Assessment/Plan Plan: Did consult with apprentice painter neckties at [facility] who reviewed EKG. Labs all stable. Troponin mildly elevated, but has been dating back to 2017, likely due to CKD. Recommended increasing Toprol XL to 100 mg daily and give extra dose of Lasix. Patient was given 20 mg Lasix in ED. He wished to take his increased dose of metoprolol when home. He was advised to avoid strenuous activity until further follow up with cardiology. He has appointment scheduled for Wednesday05/29/2019. He was discharged from facility in satisfactory condition.
[2019-05-26 11:39] VITALS: BP 119/85; PULSE 107
[2019-05-26] MEDS ORDERED: Furosemide 20 MG Tab PO ONE (12:35)
== END 2019-05-26 12:57 | disposition home or self-care (01) ==
LOC: CC.ED 10:01
DX: E11.22 Type 2 diabetes mellitus with diabetic chronic kidney disease (principal); N18.3 Chronic kidney disease, stage 3 (moderate); I50.22 Chronic systolic (congestive) heart failure; I44.0 Atrioventricular block, first degree; R00.0 Tachycardia, unspecified; E11.40 Type 2 diabetes mellitus with diabetic neuropathy, unspecified; E78.00 Pure hypercholesterolemia, unspecified; F32.9 Major depressive disorder, single episode, unspecified; Z88.8 Allergy status to other drugs, medicaments and biological substances; Z79.899 Other long term (current) drug therapy; Z90.49 Acquired absence of other specified parts of digestive tract; Z79.4 Long term (current) use of insulin
CPT/HCPCS: 36415; 71046; 80053; 83735; 84484; 85025; 85730; 93005; 99285; A9270

== ENCOUNTER 2019-08-30 02:12 | Observation (INO) | payer BC ==
[2019-08-30 02:57] LABS: CHLORIDE,CL 102 mEq/L (98-106); SODIUM,NA 144 mEq/L (136-145)
--- NOTE | 2019-08-30 03:40 | EDM.PDOC ---
ED HPI GENERAL MEDICAL PROBLEM - General Chief Complaint: Chest Pain Stated Complaint: "Having SOB and chest pain" Time Seen by Provider: 08/30/19 02:45 Source of Information: Reports: Patient History Limitations: Reports: No Limitations - History of Present Illness INITIAL COMMENTS - FREE TEXT/NARRATIVE: Ger is a 64 yo male who presents to the ED via private vehicle with complaints of chest pain. States the pain started this evening and had been gradually getting worse. He underwent cardioversion today 08/29/2019 at [facility] in [place]. He admits to recurrent cardioversion secondary to going back into atrial flutter. He admits [facility] has told him there isn't anything else they can do from a cardioversion stand point. He denies feeling lightheaded presently. States he has been weaker with ambulation. He states he did call down to [facility] this morning and they advised him calling 911 which he states he wouldn't do and decided to drive himself here. Presently the chest pain has subsided some. States he doesn't feel as short of breath. - Related Data Allergies Allergy/AdvReac Type Severity Reaction Status Date / Time amiodarone Allergy Other Verified 05/31/19 02:57 Home Meds: Home Meds Pramipexole Di-HCl [Mirapex ER] 3 mg PO BEDTIME 12/22/13 [History] Simvastatin [Zocor] 20 mg PO DAILY 12/22/13 [History] Albuterol Sulfate [Proair Hfa] 2 puff INH Q6H PRN 11/24/15 [History] Insuln Asp Prot/Insulin Aspart [NovoLOG Mix 70-30] 30 units SUBCUT ACDINNER 03/08 [History] Insuln Asp Prot/Insulin Aspart [NovoLOG Mix 70-30] 56 - 60 units SUBCUT QAM 03/08 [History] metFORMIN HCl [Metformin HCl] 1,000 mg PO BID 10/27/16 [History] Liraglutide [Victoza] 1.8 mg SQ DAILY 07/07/17 [History] Bumetanide [Bumex] 2 mg PO BID 11/10/17 [History] Potassium Chloride 40 meq PO BID 11/10/17 [History] Apixaban [Eliquis] 5 mg PO BID 08/08/18 [History] Magnesium Chloride [Mag Delay] 64 mg PO DAILY 05/31/19 [History] Metoprolol Succinate [Toprol XL 100mg] 100 mg PO DAILY 05/31/19 [History] metOLazone [Metolazone] 2.5 mg PO TH 08/30/19 [History] Past Medical History HEENT History: Reports: Cataract Cardiovascular History: Reports: Afib, Arrhythmia, Heart Failure, High Cholesterol, Pacemaker Other Cardiovascular History: CHF Respiratory History: Reports: Bronchitis, Recurrent Other Respiratory History: Emphysema Genitourinary History: Reports: Acute Renal Failure Musculoskeletal History: Reports: Osteoarthritis Neurological History: Reports: Neuropathy, Diabetic Psychiatric History: Reports: Depression Endocrine/Metabolic History: Reports: Diabetes, Type II Oncologic (Cancer) History: Reports: Bladder, Prostate Other Dermatologic History: CELLULITIS/BURSITIS OF RIGHT KNEE - Past Surgical History HEENT Surgical History: Reports: Detached Retina Cardiovascular Surgical History: Reports: Cardiac Ablation, Other (See Below) Other Cardiovascular Surgeries/Procedures: CARDIOVERSION GI Surgical History: Reports: Cholecystectomy, Hernia Repair/Other Neurological Surgical History: Reports: C-Spine Other Musculoskeletal Surgeries/Procedures:: ULNAR NERVES ON BOTH ARMS DONE, BACK SURGERIES, NECK SURGERY Social & Family History - Family History Family Medical History: Noncontributory - Caffeine Use Caffeine Use: Reports: None - Living Situation & Occupation Living situation: Reports: , with Spouse Occupation: Retired ED ROS GENERAL - Review of Systems Review Of Systems: See Below Constitutional: Reports: Weakness, Fatigue. Denies: Fever, Chills HEENT: Reports: No Symptoms Respiratory: Reports: Shortness of Breath, Cough, Sputum Cardiovascular: Reports: Chest Pain, Blood Pressure Problem, Dyspnea on Exertion , Edema, Orthopnea. Denies: Palpitations Endocrine: Reports: High Glucose GI/Abdominal: Reports: No Symptoms : Reports: No Symptoms Skin: Reports: No Symptoms Neurological: Reports: No Symptoms Psychiatric: Reports: Anxiety, Depression ED EXAM, GENERAL - Physical Exam Exam: See Below Exam Limited By: No Limitations General Appearance: Alert, No Apparent Distress. No: Anxious Ears: Normal External Exam, Normal Canal, Hearing Grossly Normal, Normal TMs Nose: Normal Inspection, Normal Mucosa, No Blood Throat/Mouth: Normal Inspection, Normal Lips, Normal Teeth, Normal Gums, Normal Oropharynx, Normal Voice, No Airway Compromise Head: Atraumatic, Normocephalic Neck: Normal Inspection, Supple Respiratory/Chest: No Respiratory Distress, Lungs Clear, No Accessory Muscle Use Cardiovascular: Regular Rate, Rhythm, No Murmur, Extra Beats GI/Abdominal: Normal Bowel Sounds, Soft, Non-Tender, No Organomegaly, No Distention, Other (obese) Extremities: Pedal Edema (1+, stable for patient) Neurological: Alert, Oriented, Normal Cognition, No Motor/Sensory Deficits Psychiatric: Normal Affect Skin Exam: Warm, Dry, Intact EKG INTERPRETATION EKG Date: 08/30/19 Rhythm: NSR Course - Orders/Labs/Meds Orders: Active Orders 24 hr Category Date Time Status Chest 2V [CR] Stat Exams 08/30/19 02:36 Taken Labs: Laboratory Tests 08/30/19 08/30/19 08/30/19 Range/Units 02:37 02:37 02:37 WBC 8.0 (5.0-10.0) 10^3/uL RBC 5.01 (4.50-6.00) 10^6/uL Hgb 13.1 L (14.0-18.0) g/dL Hct 41.3 (40.0-54.0) % MCV 82.4 (82.0-94.0) fL MCH 26.1 L (27.0-32.0) pg MCHC 31.7 L (33.0-38.0) g/dL RDW Coeff of Teja 17.6 H (11.0-15.0) % Plt Count 285 (150-400) 10^3/uL Neut % (Auto) 71.8 (35-85) % Lymph % (Auto) 17.6 (10-55) % [place] % (Auto) 9.8 (0-16) % Eos % (Auto) 0.5 (0-5) % Baso % (Auto) 0.3 (0-3) % Neut # (Auto) 5.72 (1.80-7.00) 10^3/uL Lymph # (Auto) 1.40 (1.00-4.80) 10^3/uL [place] # (Auto) 0.78 (0.00-0.80) 10^3/uL Eos # (Auto) 0.04 (0.00-0.45) 10^3/uL Baso # (Auto) 0.02 10^3/uL PT 12.8 H (9.7-12.3) SEC INR 1.26 H (0.92-1.18) APTT 29.6 (23.2-32.3) SEC Sodium 144 (136-145) mEq/L Potassium 3.6 (3.5-5.0) mEq/L Chloride 102 (98-106) mEq/L Carbon Dioxide 30 (21-32) mmol/L BUN 38 H (7-18) mg/dL Creatinine 1.7 H (0.7-1.3) mg/dL Est Cr Clr Drug Dosing TNP Estimated GFR (MDRD) 41 L (>=60) mL/min Glucose 178 H (75-99) mg/dL Calcium 9.1 (8.4-10.1) mg/dL Total Bilirubin 1.7 H (0.0-1.0) mg/dL AST 44 H (15-37) U/L ALT 39 (12-78) U/L Alkaline Phosphatase 266 H (46-116) U/L Lactate Dehydrogenase 273 H (100-190) U/L Creatine Kinase 146 (35-232) U/L Troponin I 0.142 H (0.00-0.06) ng/mL NT-Pro-B Natriuret Pep 3247 H (0-1000) pg/mL Total Protein 7.8 (6.4-8.2) g/dL Albumin 3.8 (3.4-5.0) g/dL Departure - Departure Time of Disposition: 03:44 Disposition: Refer to Observation Clinical Impression: Atypical chest pain, History of cardioversion Congestive heart failure Qualifiers: Heart failure type: systolic Heart failure chronicity: chronic Qualified Code(s ): I50.22 - Chronic systolic (congestive) heart failure - Problem List & Annotations (1) Congestive heart failure SNOMED Code(s): 59308062 Code(s): I50.9 - HEART FAILURE, UNSPECIFIED Status: Acute Qualifiers: Heart failure type: systolic Heart failure chronicity: chronic Qualified Code(s): I50.22 - Chronic systolic (congestive) heart failure (2) Atypical chest pain SNOMED Code(s): 855932850 Code(s): R07.89 - OTHER CHEST PAIN Status: Acute Priority: High (3) History of cardioversion SNOMED Code(s): 95975738712701 Code(s): Z98.890 - OTHER SPECIFIED POSTPROCEDURAL STATES Status: Acute - My Orders Last 24 Hours: My Active Orders 08/30/19 02:36 Chest 2V [CR] Stat - Assessment/Plan Admission H&P: Please use this note as an admission H&P Last 24 Hours: My Active Orders 08/30/19 02:36 Chest 2V [CR] Stat Plan: Ger continues to be in sinus rhythm. Troponin is indeterminate, which is likely secondary to recent cardioversion today. Will admit for observation to Dr. Pandey's services for cardiac rule out. Cardiac enzymes to be completed in am. ProBNP is elevated but stable from prior results. Ger verbalized understanding and is in agreement. Patient transferred to floor in satisfactory condition. Vital signs are stable, please see nurses notes for complete details.
[2019-08-30] MEDS ORDERED: Sodium Chloride 0.9% 10 ML Syringe FLUSH PRN (04:07)
[2019-08-30] MEDS ORDERED: metFORMIN 500 MG Tab PO SCH (08:00)
[2019-08-30] MEDS ORDERED: Simvastatin 20 MG Tab PO SCH (08:00)
[2019-08-30] MEDS ORDERED: LIRAGLUTIDE 1.8 MG SQ SCH (08:00)
[2019-08-30] MEDS ORDERED: Metoprolol Succinate 100 MG Tab.ER PO SCH (08:00)
[2019-08-30] MEDS ORDERED: Insulin NPH HUM/REG Insulin HM 100 UNIT/ML 3 ML Vial SQ SCH ×2 (08:00→17:00)
[2019-08-30] MEDS ORDERED: Apixaban 5 MG Tab PO SCH (08:00)
[2019-08-30] MEDS ORDERED: Potassium Chloride 10 MEQ Tab.ER PO SCH (08:00)
[2019-08-30] MEDS ORDERED: Bumetanide 1 MG Tab PO SCH (08:00)
[2019-08-30] MEDS ORDERED: Magnesium Chloride 64 MG Tab.ER PO SCH (08:00)
[2019-08-30] MEDS ORDERED: LORazepam 0.5 MG Tab PO PRN (09:01)
[2019-08-30 11:50] VITALS: BP 111/81; PULSE 91
--- NOTE | 2019-08-30 14:52 | PCM.DCSUM1 ---
Discharge Summary - Hospital Course Free Text/Narrative:: Ger is a 64 year old who presented to ER with complaints of chest pain following an ablation for atrial flutter. Had cardioversion several times before but never experienced pain after. Patient has been told that they could no longer do anything from a cardioversion standpoint. [place] short of breath and chest pain was worsening. Called down to [facility] and was advised to be seen. Did drive himself to the ER, on arrival, chest pain was easing. Troponin was indeterminate, likely from recent cardioversion. ProBNP was elevated but comparable to previous evaluation. Admitted for cardiac monitoring , still in sinus rhythm and serial enzymes. Diagnosis: Stroke: No Modified Janet Scale: No Symptoms at All Modified Janet Scale Score: 0 - Discharge Data Discharge Date: 08/30/19 Discharge Disposition: Home, Self-Care 01 Condition: Fair - Referral to Home Health Primary Care Physician: PCP None - Patient Summary/Data Complications: none Hospital Course: Patient is doing well this am, no longer has any pain. No increased shortness of breath. Troponin has remained indeterminate but improved. Given breakfast and tolerated well. Did have a short run of v tach, completely asymptomatic, remains in sinus rhythm. Blood pressure stable. Will discharge home on usual meds. - Patient Instructions Diet: Diabetic Diet Activity: As Tolerated - Discharge Plan *PRESCRIPTION DRUG MONITORING PROGRAM REVIEWED*: No *COPY OF PRESCRIPTION DRUG MONITORING REPORT IN PATIENT CHASITY: No Home Medications: Home Meds Pramipexole Di-HCl [Mirapex ER] 3 mg PO BEDTIME 12/22/13 [History] Simvastatin [Zocor] 40 mg PO DAILY 12/22/13 [History] Albuterol Sulfate [Proair Hfa] 2 puff INH Q6H PRN 11/24/15 [History] Insuln Asp Prot/Insulin Aspart [NovoLOG Mix 70-30] 30 units SUBCUT ACDINNER 03/08 [History] Insuln Asp Prot/Insulin Aspart [NovoLOG Mix 70-30] 56 - 60 units SUBCUT QAM 03/08 [History] Liraglutide [Victoza] 1.8 mg SQ DAILY 07/07/17 [History] Bumetanide [Bumex] 3 mg PO QAM 11/10/17 [History] Potassium Chloride 40 meq PO BID 11/10/17 [History] Apixaban [Eliquis] 5 mg PO BID 08/08/18 [History] Magnesium Chloride [Mag Delay] 64 mg PO DAILY 05/31/19 [History] Bumetanide 2 mg PO QPM 08/30/19 [History] LORazepam 0.5 mg PO BID PRN 08/30/19 [History] hydrALAZINE [Apresoline] 10 mg PO TID 08/30/19 [History] metOLazone [Metolazone] 2.5 mg PO TH 08/30/19 [History] Forms: ED Department Discharge Referrals: Casey Cummings PA-C [Emergency Provider] - (Follow up with Ramesh Cummings in one week for recheck) - Discharge Summary/Plan Comment DC Time >30 min.: No - General Info Date of Service: 08/30/19 Admission Dx/Problem (Free Text: Atypical chest pain Functional Status: Reports: Pain Controlled, Tolerating Diet, Ambulating - Review of Systems General: Reports: Weakness, Fatigue HEENT: Reports: No Symptoms Pulmonary: Reports: Shortness of Breath. Denies: Cough Cardiovascular: Reports: Edema. Denies: Chest Pain, Lightheadedness Gastrointestinal: Denies: Abdominal Pain, Nausea, Vomiting Genitourinary: Reports: No Symptoms Musculoskeletal: Reports: No Symptoms Skin: Reports: No Symptoms Neurological: Reports: Weakness - Patient Data Vitals - Most Recent: Last Vital Signs Temp 98.2 F 08/30/19 11:49 Pulse 91 08/30/19 11:49 Resp 20 08/30/19 11:49 BP 111/81 08/30/19 11:49 Pulse Ox 96 08/30/19 11:49 Weight - Most Recent: 288 lb Lab Results - Last 24 hrs: Laboratory Results - last 24 hr 08/30/19 08/30/19 08/30/19 Range/Units 02:37 02:37 02:37 WBC 8.0 (5.0-10.0) 10^3/uL RBC 5.01 (4.50-6.00) 10^6/uL Hgb 13.1 L (14.0-18.0) g/dL Hct 41.3 (40.0-54.0) % MCV 82.4 (82.0-94.0) fL MCH 26.1 L (27.0-32.0) pg MCHC 31.7 L (33.0-38.0) g/dL RDW Coeff of Teja 17.6 H (11.0-15.0) % Plt Count 285 (150-400) 10^3/uL Neut % (Auto) 71.8 (35-85) % Lymph % (Auto) 17.6 (10-55) % [place] % (Auto) 9.8 (0-16) % Eos % (Auto) 0.5 (0-5) % Baso % (Auto) 0.3 (0-3) % Neut # (Auto) 5.72 (1.80-7.00) 10^3/uL Lymph # (Auto) 1.40 (1.00-4.80) 10^3/uL [place] # (Auto) 0.78 (0.00-0.80) 10^3/uL Eos # (Auto) 0.04 (0.00-0.45) 10^3/uL Baso # (Auto) 0.02 10^3/uL PT 12.8 H (9.7-12.3) SEC INR 1.26 H (0.92-1.18) APTT 29.6 (23.2-32.3) SEC Sodium 144 (136-145) mEq/L Potassium 3.6 (3.5-5.0) mEq/L Chloride 102 (98-106) mEq/L Carbon Dioxide 30 (21-32) mmol/L BUN 38 H (7-18) mg/dL Creatinine 1.7 H (0.7-1.3) mg/dL Est Cr Clr Drug Dosing TNP Estimated GFR (MDRD) 41 L (>=60) mL/min Glucose 178 H (75-99) mg/dL POC Glucose (75-105) mg/dl Calcium 9.1 (8.4-10.1) mg/dL Total Bilirubin 1.7 H (0.0-1.0) mg/dL AST 44 H (15-37) U/L ALT 39 (12-78) U/L Alkaline Phosphatase 266 H (46-116) U/L Lactate Dehydrogenase 273 H (100-190) U/L Creatine Kinase 146 (35-232) U/L Troponin I 0.142 H (0.00-0.06) ng/mL NT-Pro-B Natriuret Pep 3247 H (0-1000) pg/mL Total Protein 7.8 (6.4-8.2) g/dL Albumin 3.8 (3.4-5.0) g/dL 08/30/19 08/30/19 08/30/19 Range/Units 07:00 07:59 11:00 WBC (5.0-10.0) 10^3/uL RBC (4.50-6.00) 10^6/uL Hgb (14.0-18.0) g/dL Hct (40.0-54.0) % MCV (82.0-94.0) fL MCH (27.0-32.0) pg MCHC (33.0-38.0) g/dL RDW Coeff of Teja (11.0-15.0) % Plt Count (150-400) 10^3/uL Neut % (Auto) (35-85) % Lymph % (Auto) (10-55) % [place] % (Auto) (0-16) % Eos % (Auto) (0-5) % Baso % (Auto) (0-3) % Neut # (Auto) (1.80-7.00) 10^3/uL Lymph # (Auto) (1.00-4.80) 10^3/uL [place] # (Auto) (0.00-0.80) 10^3/uL Eos # (Auto) (0.00-0.45) 10^3/uL Baso # (Auto) 10^3/uL PT (9.7-12.3) SEC INR (0.92-1.18) APTT (23.2-32.3) SEC Sodium (136-145) mEq/L Potassium (3.5-5.0) mEq/L Chloride (98-106) mEq/L Carbon Dioxide (21-32) mmol/L BUN (7-18) mg/dL Creatinine (0.7-1.3) mg/dL Est Cr Clr Drug Dosing Estimated GFR (MDRD) (>=60) mL/min Glucose (75-99) mg/dL POC Glucose 139 H (75-105) mg/dl Calcium (8.4-10.1) mg/dL Total Bilirubin (0.0-1.0) mg/dL AST (15-37) U/L ALT (12-78) U/L Alkaline Phosphatase (46-116) U/L Lactate Dehydrogenase (100-190) U/L Creatine Kinase 136 (35-232) U/L Troponin I 0.162 H 0.139 H (0.00-0.06) ng/mL NT-Pro-B Natriuret Pep (0-1000) pg/mL Total Protein (6.4-8.2) g/dL Albumin (3.4-5.0) g/dL 08/30/19 Range/Units 11:42 WBC (5.0-10.0) 10^3/uL RBC (4.50-6.00) 10^6/uL Hgb (14.0-18.0) g/dL Hct (40.0-54.0) % MCV (82.0-94.0) fL MCH (27.0-32.0) pg MCHC (33.0-38.0) g/dL RDW Coeff of Teja (11.0-15.0) % Plt Count (150-400) 10^3/uL Neut % (Auto) (35-85) % Lymph % (Auto) (10-55) % [place] % (Auto) (0-16) % Eos % (Auto) (0-5) % Baso % (Auto) (0-3) % Neut # (Auto) (1.80-7.00) 10^3/uL Lymph # (Auto) (1.00-4.80) 10^3/uL [place] # (Auto) (0.00-0.80) 10^3/uL Eos # (Auto) (0.00-0.45) 10^3/uL Baso # (Auto) 10^3/uL PT (9.7-12.3) SEC INR (0.92-1.18) APTT (23.2-32.3) SEC Sodium (136-145) mEq/L Potassium (3.5-5.0) mEq/L Chloride (98-106) mEq/L Carbon Dioxide (21-32) mmol/L BUN (7-18) mg/dL Creatinine (0.7-1.3) mg/dL Est Cr Clr Drug Dosing Estimated GFR (MDRD) (>=60) mL/min Glucose (75-99) mg/dL POC Glucose 246 H (75-105) mg/dl Calcium (8.4-10.1) mg/dL Total Bilirubin (0.0-1.0) mg/dL AST (15-37) U/L ALT (12-78) U/L Alkaline Phosphatase (46-116) U/L Lactate Dehydrogenase (100-190) U/L Creatine Kinase (35-232) U/L Troponin I (0.00-0.06) ng/mL NT-Pro-B Natriuret Pep (0-1000) pg/mL Total Protein (6.4-8.2) g/dL Albumin (3.4-5.0) g/dL Med Orders - Current: Current Medications Discontinued Medications Apixaban (Eliquis) 5 mg PO BID [facility] Last Admin: 08/30/19 09:29 Dose: 5 mg Bumetanide (Bumex) 2 mg PO BID [facility] Last Admin: 08/30/19 09:26 Dose: 1.5 mg Insulin NPH Beef/Pork (Humulin 70-30) 0 unit SQ ACDINNER [facility] Insulin NPH Beef/Pork (Humulin 70-30) 56 - 60 unit SQ QAM [facility] Last Admin: 08/30/19 09:20 Dose: 56 unit Lorazepam (Ativan) 0.5 mg PO BID PRN PRN Reason: Anxiety Magnesium Chloride (Mag-64) 64 mg PO DAILY [facility] Last Admin: 08/30/19 09:29 Dose: 64 mg Metformin HCl (Glucophage) 1,000 mg PO BID [facility] Last Admin: 08/30/19 09:35 Dose: Not Given Metolazone (Zaroxolyn) 2.5 mg PO Q7D [facility] Metoprolol Succinate (Toprol Xl) 100 mg PO DAILY [facility] Last Admin: 08/30/19 09:35 Dose: Not Given (Liraglutide [ Victoza] 1.8 Mg) Own Med 1.8 mg SQ DAILY [facility] Last Admin: 08/30/19 09:23 Dose: 1.8 mg Non-Formulary Medication (Pramipexole Di-Hcl [Mirapex Er]) 3 mg PO BEDTIME [facility] Potassium Chloride (Klor-Con 10) 40 meq PO BID [facility] Last Admin: 08/30/19 09:26 Dose: 40 meq Simvastatin (Zocor) 20 mg PO DAILY [facility] Last Admin: 08/30/19 11:51 Dose: Not Given Sodium Chloride (Saline Flush) 10 ml FLUSH ASDIRECTED PRN PRN Reason: Keep Vein Open - Exam General: Reports: Alert, Oriented HEENT: Reports: Mucous Membr. Moist/[place]: Reports: Supple Lungs: Reports: Decreased Breath Sounds Cardiovascular: Reports: Regular Rate, Regular Rhythm GI/Abdominal Exam: Normal Bowel Sounds, Soft, Non-Tender Extremities: Pedal Edema Skin: Reports: Warm, Dry Neurological: Reports: No New Focal Deficit
[2019-08-30] MEDS ORDERED: PRAMIPEXOLE DI HCL 3 MG PO SCH (20:00)
[2019-08-31] MEDS ORDERED: Metolazone 5 MG Tab PO SCH (07:00)
== END 2019-08-30 13:20 | disposition home or self-care (01) ==
LOC: CC.ED 02:12 → CC.MS 03:51 → UNDOADMOB 03:56 → CC.MS 03:56
PROVIDERS: ADMIT Physician Assistant Medical; ATTEND Family Medicine
DX: R07.89 Other chest pain (principal); I48.92 Unspecified atrial flutter; I50.22 Chronic systolic (congestive) heart failure; E78.00 Pure hypercholesterolemia, unspecified; E11.36 Type 2 diabetes mellitus with diabetic cataract; E11.40 Type 2 diabetes mellitus with diabetic neuropathy, unspecified; H26.9 Unspecified cataract; J43.9 Emphysema, unspecified; F32.9 Major depressive disorder, single episode, unspecified; F41.9 Anxiety disorder, unspecified; M19.90 Unspecified osteoarthritis, unspecified site; Z79.4 Long term (current) use of insulin; Z79.01 Long term (current) use of anticoagulants; Z79.899 Other long term (current) drug therapy; Z88.8 Allergy status to other drugs, medicaments and biological substances; Z95.0 Presence of cardiac pacemaker; Z98.890 Other specified postprocedural states
CPT/HCPCS: 36415; 71046; 80053; 82550; 82962; 83615; 83880; 84484; 85025; 85610; 85730; 93005; 99285-25; A9270-GY; G0378; J1815-GY

== ENCOUNTER 2019-09-27 07:24 | Observation (INO) | payer BC ==
[2019-09-27] MEDS ORDERED: LORazepam 0.5 MG Tab PO PRN (09:41)
[2019-09-27] MEDS ORDERED: Sodium Chloride 0.9% 10 ML Syringe FLUSH PRN (09:41)
[2019-09-27] MEDS ORDERED: Acetaminophen 325 MG Tab PO PRN (09:41)
[2019-09-27] MEDS ORDERED: Apixaban 5 MG Tab PO SCH (09:45)
[2019-09-27] MEDS: BUMETANIDE 2 MG PO SCH (10:59)
[2019-09-27] MEDS: Non-Formulary Medication 1 Each (Hydralazine [Apresoline] 10 MG) PO SCH ×3 (11:00→19:55)
[2019-09-27] MEDS: Apixaban 5 MG Tab PO SCH ×2 (11:00→17:30)
[2019-09-27] MEDS ORDERED: Spironolactone 25 MG Tab PO SCH (12:00)
[2019-09-27] MEDS ORDERED: Insulin Regular, Human 100 Units/ML 10 ML Vial SUBCUT SCH (12:00)
[2019-09-27] MEDS: Spironolactone 25 MG Tab PO SCH (12:02)
--- NOTE | 2019-09-27 12:23 | EDM.PDOC ---
ED HPI GENERAL MEDICAL PROBLEM - General Chief Complaint: Chest Pain Stated Complaint: SOB/CP/CAME FROM THE CLINIC Time Seen by Provider: 09/27/19 08:00 Source of Information: Reports: Patient History Limitations: Reports: No Limitations - History of Present Illness INITIAL COMMENTS - FREE TEXT/NARRATIVE: Ger is a 64 yo male who presents to the ED with complaints of chest pressure and shortness of breath. States he is scheduled to have a cardioversion on Wednesday as he is back in atrial flutter. Admits about 3 weeks ago he converted back to atrial flutter. He has underwent multiple cardioversions prior. He states he doesn't have a lot of energy and the chest discomfort is just as bad when he is sitting as when he tries walking. Unable to give pain scale rating as he states he doesn't have much feeling in his chest, more so a pressure. He also states he hasn't been sleeping much in the last 3 weeks. Had an episode of dry heaving this morning after a coughing spell. Denies any upper respiratory complaints. - Related Data Allergies Allergy/AdvReac Type Severity Reaction Status Date / Time amiodarone Allergy Other Verified 09/27/19 07:40 Home Meds: Home Meds Pramipexole Di-HCl [Mirapex ER] 3 mg PO BEDTIME 12/22/13 [History] Simvastatin [Zocor] 40 mg PO DAILY 12/22/13 [History] Albuterol Sulfate [Proair Hfa] 2 puff INH Q6H PRN 11/24/15 [History] Insuln Asp Prot/Insulin Aspart [NovoLOG Mix 70-30] 30 units SUBCUT ACDINNER 03/08 [History] Insuln Asp Prot/Insulin Aspart [NovoLOG Mix 70-30] 56 - 60 units SUBCUT QAM 03/08 [History] Liraglutide [Victoza] 1.8 mg SQ DAILY 07/07/17 [History] Bumetanide [Bumex] 3 mg PO QAM 11/10/17 [History] Potassium Chloride 40 meq PO BID 11/10/17 [History] Apixaban [Eliquis] 5 mg PO BID 08/08/18 [History] Bumetanide 2 mg PO QPM 08/30/19 [History] LORazepam 0.5 mg PO BID PRN 08/30/19 [History] hydrALAZINE [Apresoline] 10 mg PO TID 08/30/19 [History] metOLazone [Metolazone] 2.5 mg PO TH 08/30/19 [History] Magnesium Oxide 250 mg PO BEDTIME 09/27/19 [History] Metoprolol Succinate 1 tab PO DAILY 09/27/19 [History] Spironolactone [Aldactone] 25 mg PO DAILY 09/27/19 [History] Past Medical History HEENT History: Reports: Cataract Cardiovascular History: Reports: Afib, Arrhythmia, Heart Failure, High Cholesterol, Pacemaker Other Cardiovascular History: CHF Respiratory History: Reports: Bronchitis, Recurrent Other Respiratory History: Emphysema Genitourinary History: Reports: Acute Renal Failure Musculoskeletal History: Reports: Osteoarthritis Neurological History: Reports: Neuropathy, Diabetic Psychiatric History: Reports: Depression Endocrine/Metabolic History: Reports: Diabetes, Type II Oncologic (Cancer) History: Reports: Bladder, Prostate Other Dermatologic History: CELLULITIS/BURSITIS OF RIGHT KNEE - Past Surgical History HEENT Surgical History: Reports: Detached Retina Cardiovascular Surgical History: Reports: Cardiac Ablation, Other (See Below) Other Cardiovascular Surgeries/Procedures: CARDIOVERSION GI Surgical History: Reports: Cholecystectomy, Hernia Repair/Other Neurological Surgical History: Reports: C-Spine Other Musculoskeletal Surgeries/Procedures:: ULNAR NERVES ON BOTH ARMS DONE, BACK SURGERIES, NECK SURGERY Social & Family History - Family History Family Medical History: Noncontributory - Tobacco Use Smoking Status *Q: Never Smoker - Caffeine Use Caffeine Use: Reports: None - Recreational Drug Use Recreational Drug Use: No - Living Situation & Occupation Living situation: Reports: , with Spouse Occupation: Retired ED ROS GENERAL - Review of Systems Review Of Systems: See Below Constitutional: Reports: Weakness, Fatigue. Denies: Fever HEENT: Reports: No Symptoms Respiratory: Reports: Shortness of Breath. Denies: Wheezing Cardiovascular: Reports: Chest Pain, Dyspnea on Exertion Endocrine: Reports: No Symptoms GI/Abdominal: Reports: Nausea, Vomiting : Reports: No Symptoms Skin: Reports: No Symptoms ED EXAM, GENERAL - Physical Exam Exam: See Below Exam Limited By: No Limitations General Appearance: Alert, No Apparent Distress Ears: Normal External Exam, Normal Canal, Hearing Grossly Normal, Normal TMs Nose: Normal Inspection, Normal Mucosa, No Blood Throat/Mouth: Normal Inspection, Normal Lips, Normal Teeth, Normal Gums, Normal Oropharynx, Normal Voice, No Airway Compromise Head: Atraumatic, Normocephalic Neck: Normal Inspection, Supple Respiratory/Chest: Lungs Clear, Decreased Breath Sounds. No: Respiratory Distress, Accessory Muscle Use Cardiovascular: Irregularly Irregular Extremities: Pedal Edema Neurological: Alert, Oriented, Normal Cognition, No Motor/Sensory Deficits Psychiatric: Normal Affect, Normal Mood Skin Exam: Warm, Dry, Intact, Normal Color, No Rash EKG INTERPRETATION EKG Date: 09/27/19 Rhythm: A-Flutter Course - Vital Signs Last Recorded V/S: Last Vital Signs Temp 97.2 F 09/27/19 11:14 Pulse 98 09/27/19 11:14 Resp 18 09/27/19 11:14 BP 105/67 09/27/19 11:14 Pulse Ox 98 09/27/19 11:14 - Orders/Labs/Meds Orders: Active Orders 24 hr Category Date Time Status Chest 2V [CR] Routine Exams 09/27/19 Taken Medication Orders Acetaminophen (Tylenol) 650 mg PO Q4H PRN PRN Reason: Pain (Mild 1-3)/fever Apixaban (Eliquis) 5 mg PO BIDMEALS [facility] Last Admin: 09/27/19 11:00 Dose: 5 mg Insulin Human Lispro (Humalog) 0 unit SUBCUT WITHMEALSANDBED [facility]; Protocol Lorazepam (Ativan) 0.5 mg PO BID PRN PRN Reason: Anxiety Magnesium Oxide (Magnesium Oxide) 250 mg PO BEDTIME [facility] Bumetanide 2 Mg Tab 0 mg PO DAILY@1600 [facility] Bumetanide [Bumex] 2 (Mg Tab) 0 mg PO QAM [facility] Last Admin: 09/27/19 10:59 Dose: 3 mg Non-Formulary Medication (Hydralazine [Apresoline]) 10 mg PO TID [facility] Last Admin: 09/27/19 11:00 Dose: 10 mg Insuln Asp Prot/Insulin Aspart [ Novolog Mix 70-30] 30 units SUBCUT ACDINNER [facility] Non-Formulary Medication (Insuln Asp Prot/Insulin Aspart [Novolog Mix 70-30]) 56 - 60 units SUBCUT QAM [facility] Non-Formulary Medication (Liraglutide [Victoza]) 1.8 mg SQ DAILY [facility] Metolazone 2.5 Mg (Tab) 2.5 mg PO TH [facility] Metoprolol Succinate (50mg Tab) 1 cap PO DAILY [facility] Potassium Chloride (20 Meq) 0 meq PO BIDMEALS [facility] Last Admin: 09/27/19 11:01 Dose: 40 meq Pramipexole Di-Hcl [ Mirapex Er] 1.5mg Tab 0 mg PO BEDTIME [facility] Simvastatin 40mg Tab 0 each PO BEDTIME [facility] Spironolactone (Aldactone) 25 mg PO DAILY [facility] Last Admin: 09/27/19 12:02 Dose: 25 mg Labs: Laboratory Tests 09/27/19 09/27/19 09/27/19 Range/Units 07:41 07:41 07:41 WBC 7.5 (5.0-10.0) 10^3/uL RBC 5.22 (4.50-6.00) 10^6/uL Hgb 13.1 L (14.0-18.0) g/dL Hct 42.0 (40.0-54.0) % MCV 80.5 L (82.0-94.0) fL MCH 25.1 L (27.0-32.0) pg MCHC 31.2 L (33.0-38.0) g/dL RDW Coeff of Teja 17.1 H (11.0-15.0) % Plt Count 291 (150-400) 10^3/uL Neut % (Auto) 74.4 (35-85) % Lymph % (Auto) 15.2 (10-55) % [place] % (Auto) 9.2 (0-16) % Eos % (Auto) 1.1 (0-5) % Baso % (Auto) 0.1 (0-3) % Neut # (Auto) 5.57 (1.80-7.00) 10^3/uL Lymph # (Auto) 1.14 (1.00-4.80) 10^3/uL [place] # (Auto) 0.69 (0.00-0.80) 10^3/uL Eos # (Auto) 0.08 (0.00-0.45) 10^3/uL Baso # (Auto) 0.01 10^3/uL PT 12.7 H (9.7-12.3) SEC INR 1.25 H (0.92-1.18) APTT 28.0 (23.2-32.3) SEC Sodium 138 (136-145) mEq/L Potassium 3.2 L (3.5-5.0) mEq/L Chloride 95 L (98-106) mEq/L Carbon Dioxide 34 H (21-32) mmol/L BUN 56 H (7-18) mg/dL Creatinine 2.2 H (0.7-1.3) mg/dL Est Cr Clr Drug Dosing 42.19 mL/min Estimated GFR (MDRD) 30 L (>=60) mL/min Glucose 192 H D (75-99) mg/dL Calcium 9.1 (8.4-10.1) mg/dL Total Bilirubin 1.7 H (0.0-1.0) mg/dL AST 61 H (15-37) U/L ALT 63 (12-78) U/L Alkaline Phosphatase 275 H (46-116) U/L Lactate Dehydrogenase 283 H (100-190) U/L Creatine Kinase 163 (35-232) U/L Troponin I 0.212 H (0.00-0.06) ng/mL Total Protein 7.3 (6.4-8.2) g/dL Albumin 3.3 L (3.4-5.0) g/dL Meds: Medications Generic Name Dose Route Start Last Admin Trade Name Freq PRN Reason Stop Dose Admin Acetaminophen 650 mg 09/27/19 09:41 Tylenol PO Q4H PRN Pain (Mild 1-3)/fever Apixaban 5 mg 09/27/19 10:00 09/27/19 11:00 Eliquis PO 5 mg BIDMEALS [facility] Administration Insulin Human Lispro 0 unit 09/27/19 12:00 Humalog SUBCUT WITHMEALSANDBED [facility] Protocol Lorazepam 0.5 mg 09/27/19 09:41 Ativan PO BID PRN Anxiety Magnesium Oxide 250 mg 09/27/19 20:00 Magnesium Oxide PO BEDTIME [facility] Bumetanide 2 Mg Tab 0 mg 09/27/19 16:00 PO DAILY@1600 [facility] Bumetanide [Bumex] 2 0 mg 09/27/19 10:45 09/27/19 10:59 Mg Tab PO 3 mg QAM [facility] Administration Non-Formulary Medication 10 mg 09/27/19 10:15 09/27/19 11:00 Hydralazine [Apresoline] PO 10 mg TID [facility] Administration Insuln Asp Prot/ 30 units 09/27/19 17:00 Insulin Aspart [ SUBCUT Novolog Mix 70-30] ACDINNER [facility] Non-Formulary Medication 56 - 60 units 09/28/19 10:15 Insuln Asp Prot/Insulin Aspart [Novolog Mix 70-30] SUBCUT QAM [facility] Non-Formulary Medication 1.8 mg 09/28/19 10:15 Liraglutide [Victoza] SQ DAILY [facility] Metolazone 2.5 Mg 2.5 mg 09/28/19 07:30 Tab PO TH [facility] Metoprolol Succinate 1 cap 09/28/19 08:00 50mg Tab PO DAILY [facility] Potassium Chloride 0 meq 09/27/19 10:30 09/27/19 11:01 20 Meq PO 40 meq BIDMEALS [facility] Administration Pramipexole Di-Hcl [ 0 mg 09/27/19 20:00 Mirapex Er] 1.5mg PO Tab BEDTIME [facility] Simvastatin 40mg Tab 0 each 09/27/19 20:00 PO BEDTIME [facility] Spironolactone 25 mg 09/27/19 12:00 09/27/19 12:02 Aldactone PO 25 mg DAILY [facility] Administration Discontinued Medications Generic Name Dose Route Start Last Admin Trade Name Freq PRN Reason Stop Dose Admin Apixaban 5 mg 09/27/19 09:45 09/27/19 10:32 Eliquis PO Not Given BIDMEALS [facility] Simvastatin 40 mg 09/27/19 20:00 Zocor PO BEDTIME [facility] Sodium Chloride 10 ml 09/27/19 09:41 Saline Flush FLUSH ASDIRECTED PRN Keep Vein Open Departure - Departure Time of Disposition: 10:30 Disposition: Refer to Observation Clinical Impression: Chest pain Qualifiers: Chest pain type: unspecified Qualified Code(s): R07.9 - Chest pain, unspecified Sepsis Event Note - Evaluation Sepsis Screening Result: No Definite Risk - Focused Exam Vital Signs: Vital Signs Temp Pulse Resp BP Pulse Ox Pulse Ox 09/27/19 08:15 107 H 18 93/65 94 L 90 L 09/27/19 08:00 108 H 20 102/72 97 09/27/19 07:45 97.4 F 101 H 20 109/78 97 09/27/19 07:40 106 H 20 99/73 95 Date Exam was Performed: 09/27/19 Time Exam was Performed: 12:12 - Problem List & Annotations (1) Atrial flutter SNOMED Code(s): 8006714 Code(s): I48.92 - UNSPECIFIED ATRIAL FLUTTER Status: Acute Priority: High Current Visit: No (2) Chest pain SNOMED Code(s): 51563406 Code(s): R07.9 - CHEST PAIN, UNSPECIFIED Status: Acute Current Visit: Yes Qualifiers: Chest pain type: unspecified Qualified Code(s): R07.9 - Chest pain, unspecified - My Orders Last 24 Hours: My Active Orders 09/27/19 Chest 2V [CR] Routine - Assessment/Plan Admission H&P: Please use this note as an admission H&P Last 24 Hours: My Active Orders 09/27/19 Chest 2V [CR] Routine Plan: Admit to Dr. Pandey's services under observation for cardiac rule out. Troponin indeterminate today. Will repeat troponin at noon and 1600hrs. Telemetry continuous. Dr. Pandey alerted and in agreement with admission. Chest x-ray stable , no acute cardiopulmonary findings. EKG showed no St elevation.
[2019-09-27] MEDS: Insulin Lispro 100 Units/ML 3 ML Vial SUBCUT SCH ×3 (12:49→20:56)
[2019-09-27] MEDS: INSULIN LISPRO SUBCUT SCH (13:08)
[2019-09-27] MEDS: INSULIN LISPRO PROTAMINE SUBCUT SCH (13:08)
[2019-09-27] MEDS ORDERED: Potassium Chloride 20 MEQ in Premix Bag 1 BAG IV ONE (16:16)
[2019-09-27] MEDS ORDERED: LORazepam 2 MG/ML Syringe IVPUSH ONE ×2 (16:16→21:00)
[2019-09-27] MEDS ORDERED: INSULIN ASPART SUBCUT SCH (17:00)
[2019-09-27] MEDS ORDERED: INSULN ASP PROT SUBCUT SCH (17:00)
[2019-09-27] MEDS ORDERED: INSULIN LISPRO PROTAMINE SUBCUT SCH (17:30)
[2019-09-27] MEDS ORDERED: INSULIN LISPRO SUBCUT SCH (17:30)
[2019-09-27] MEDS ORDERED: SIMVASTATIN 40MG TAB PO SCH (20:00)
[2019-09-27] MEDS ORDERED: Simvastatin 40 MG Tab PO SCH (20:00)
[2019-09-27] MEDS ORDERED: PRAMIPEXOLE DI HCL 1.5 MG PO SCH (20:00)
[2019-09-28 03:25] VITALS: PULSE 99
[2019-09-28] MEDS: BUMETANIDE 2 MG PO SCH (07:38)
[2019-09-28] MEDS: Spironolactone 25 MG Tab PO SCH (07:38)
[2019-09-28] MEDS: Apixaban 5 MG Tab PO SCH (07:39)
[2019-09-28] MEDS: Non-Formulary Medication 1 Each (Hydralazine [Apresoline] 10 MG) PO SCH (07:41)
[2019-09-28] MEDS: Insulin Lispro 100 Units/ML 3 ML Vial SUBCUT SCH (07:41)
[2019-09-28] MEDS: INSULIN LISPRO SUBCUT SCH ×2 (07:42→08:40)
[2019-09-28] MEDS: INSULIN LISPRO PROTAMINE SUBCUT SCH ×2 (07:42→08:40)
[2019-09-28] MEDS ORDERED: METOPROLOL SUCCINATE 50 MG PO SCH (08:00)
[2019-09-28 09:10] VITALS: BP 94/68
[2019-09-28] MEDS ORDERED: Non-Formulary Medication 1 Each (Liraglutide [Victoza] 1.8 MG) SQ SCH (10:15)
--- NOTE | 2019-09-28 21:33 | PCM.DCSUM1 ---
Discharge Summary - Hospital Course Free Text/Narrative:: Ger is a 64 year old male who presented to the ER with complaints of chest pain and shortness of breath. States he is back in atrial flutter, is scheduled for cardioversion again on Wednesday. Has underwent 3 other cardioversions but does not sustain. Does admit that his anxiety is worse with worrying about cardiac concerns. Noting increased weakness and chest pressure. Has not been sleeping in the last 3 weeks, does have occasional cough. EKG confirmed atrial flutter. Troponin indeterminate at 0.201. Admitted for serial cardiac monitoring. Diagnosis: Stroke: No Modified Bruno Scale: No Symptoms at All Modified Janet Scale Score: 0 - Discharge Data Discharge Date: 09/28/19 Discharge Disposition: Home, Self-Care 01 Condition: Fair - Referral to Home Health Primary Care Physician: Elmer Pandey MD - Patient Summary/Data Complications: none Hospital Course: Patient is resting more comfortably more this am. Does still feel short of breath, states is worse as a result of atrial flutter. Admits that his anxiety is significant, does not feel it is controlled well with Ativan. Has not slept well for many months. Feels that contributes to his anxiety. Tolerating activity this am. Edema 1-2+ in lower extremities. Lung sounds decreased but clear. Did have short run of v tach during the night, asymptomatic, while up to bathroom. Troponins have decreased over the last 24 hours. Will discharge home. Plan for further cardioversion on Wednesday as scheduled. - Patient Instructions Diet: Diabetic Diet Activity: As Tolerated - Discharge Plan *PRESCRIPTION DRUG MONITORING PROGRAM REVIEWED*: No *COPY OF PRESCRIPTION DRUG MONITORING REPORT IN PATIENT CHASITY: No Prescriptions/Med Rec: Temazepam [Restoril] 15 mg PO BEDTIME PRN #30 cap PRN Reason: Insomnia Home Medications: Home Meds Pramipexole Di-HCl [Mirapex ER] 3 mg PO BEDTIME 12/22/13 [History] Simvastatin [Zocor] 40 mg PO DAILY 12/22/13 [History] Albuterol Sulfate [Proair Hfa] 2 puff INH Q6H PRN 11/24/15 [History] Liraglutide [Victoza] 1.8 mg SQ DAILY 07/07/17 [History] Bumetanide [Bumex] 3 mg PO QAM 11/10/17 [History] Potassium Chloride 40 meq PO BID 11/10/17 [History] Apixaban [Eliquis] 5 mg PO BID 08/08/18 [History] Bumetanide 2 mg PO QPM 08/30/19 [History] LORazepam 0.5 mg PO BID PRN 08/30/19 [History] hydrALAZINE [Apresoline] 10 mg PO TID 08/30/19 [History] metOLazone [Metolazone] 2.5 mg PO TH 08/30/19 [History] Insulin Lispro Protamin/Lispro [Humalog Mix 75-25 Kwikpen] 30 units SUBCUT WITHDINNER 09/27/19 [History] Insulin Lispro Protamin/Lispro [Humalog Mix 75-25 Kwikpen] 56 - 60 units SUBCUT DAILY 09/27/19 [History] Magnesium Oxide 250 mg PO BEDTIME 09/27/19 [History] Metoprolol Succinate 1 tab PO DAILY 09/27/19 [History] Spironolactone [Aldactone] 25 mg PO DAILY 09/27/19 [History] Temazepam [Restoril] 15 mg PO BEDTIME PRN #30 cap 09/28/19 [Rx] Forms: ED Department Discharge Referrals: Casey Cummings PA-C [Emergency Provider] - (Follow up with Ramesh Cummings in 2 weeks ) - Discharge Summary/Plan Comment DC Time >30 min.: No - General Info Date of Service: 09/28/19 Admission Dx/Problem (Free Text: Chest Pain Atrial Flutter Functional Status: Reports: Pain Controlled, Tolerating Diet, Ambulating - Review of Systems General: Reports: Weakness, Fatigue HEENT: Reports: No Symptoms Pulmonary: Reports: Shortness of Breath, Cough Cardiovascular: Reports: Edema. Denies: Chest Pain, Lightheadedness Gastrointestinal: Denies: Abdominal Pain, Nausea, Vomiting Genitourinary: Reports: No Symptoms Musculoskeletal: Reports: Leg Pain Skin: Reports: No Symptoms Neurological: Reports: Weakness - Patient Data Vitals - Most Recent: Last Vital Signs Temp 96.2 F 09/28/19 08:00 Pulse 99 09/28/19 08:00 Resp 18 09/28/19 08:00 BP 94/68 09/28/19 08:00 Pulse Ox 100 09/28/19 08:00 Weight - Most Recent: 292 lb 6.4 oz Lab Results - Last 24 hrs: Laboratory Results - last 24 hr 09/28/19 09/28/19 Range/Units 07:05 07:32 Sodium 136 (136-145) mEq/L Potassium 3.8 (3.5-5.0) mEq/L Chloride 95 L (98-106) mEq/L Carbon Dioxide 32 (21-32) mmol/L BUN 63 H (7-18) mg/dL Creatinine 2.1 H (0.7-1.3) mg/dL Est Cr Clr Drug Dosing 44.20 mL/min Estimated GFR (MDRD) 32 L (>=60) mL/min Glucose 96 D (75-99) mg/dL POC Glucose 98 (75-105) mg/dl Calcium 9.3 (8.4-10.1) mg/dL Med Orders - Current: Current Medications Discontinued Medications Acetaminophen (Tylenol) 650 mg PO Q4H PRN PRN Reason: Pain (Mild 1-3)/fever Apixaban (Eliquis) 5 mg PO BIDMEALS [facility] Last Admin: 09/27/19 10:32 Dose: Not Given Apixaban (Eliquis) [facility] Last Admin: 09/28/19 07:39 Dose: 5 mg Potassium Chloride 20 meq/ (Premix) 100 mls @ 25 mls/hr IV ONETIME ONE Stop: 09/27/19 20:15 Last Admin: 09/27/19 17:00 Dose: 25 mls/hr Insulin Human Lispro (Humalog) 0 unit SUBCUT WITHMEALSANDBED [facility]; Protocol Last Admin: 09/28/19 07:41 Dose: Not Given Lorazepam (Ativan) 0.5 mg PO BID PRN PRN Reason: Anxiety Lorazepam (Ativan) 1 mg IVPUSH ONETIME ONE Stop: 09/27/19 16:17 Last Admin: 09/27/19 17:28 Dose: Not Given Lorazepam (Ativan) 1 mg IVPUSH ONETIME ONE Stop: 09/27/19 21:01 Last Admin: 09/27/19 21:29 Dose: 1 mg Magnesium Oxide (Magnesium Oxide) 250 mg PO BEDTIME [facility] Last Admin: 09/27/19 19:56 Dose: 250 mg Bumetanide 2 Mg Tab 0 mg PO DAILY@1600 [facility] Last Admin: 09/27/19 15:34 Dose: 2 mg Bumetanide [Bumex] 2 (Mg Tab) 0 mg PO QAM [facility] Last Admin: 09/28/19 07:38 Dose: 3 mg Non-Formulary Medication (Hydralazine [Apresoline]) 10 mg PO TID [facility] Last Admin: 09/28/19 07:41 Dose: 10 mg Insuln Asp Prot/Insulin Aspart [ Novolog Mix 70-30] 30 units SUBCUT ACDINNER [facility] Last Admin: 09/27/19 17:19 Dose: Not Given Insuln Lispro Prot/Insulin Lispro [ Humalog Mix 75/25] 56 - 60 units SUBCUT QAM [facility] Last Admin: 09/28/19 08:40 Dose: 30 units Non-Formulary Medication (Liraglutide [Victoza]) 1.8 mg SQ DAILY [facility] Metolazone 2.5 Mg (Tab) 2.5 mg PO TH [facility] Last Admin: 09/28/19 07:28 Dose: 2.5 mg Metoprolol Succinate (50mg Tab) 1 cap PO DAILY [facility] Last Admin: 09/28/19 07:45 Dose: 1 cap Potassium Chloride (20 Meq) 0 meq PO BIDMEALS [facility] Last Admin: 09/28/19 07:44 Dose: 40 meq Pramipexole Di-Hcl [ Mirapex Er] 1.5mg Tab 0 mg PO BEDTIME [facility] Last Admin: 09/27/19 19:57 Dose: 3 mg Simvastatin 40mg Tab 0 each PO BEDTIME [facility] Last Admin: 09/27/19 19:55 Dose: 1 each Insuln Lispro Prot/Insulin Lispro [ Humalog Mix 75/25] 0 each SUBCUT WITHDINNER [facility] Last Admin: 09/27/19 17:23 Dose: 1 each Simvastatin (Zocor) 40 mg PO BEDTIME [facility] Sodium Chloride (Saline Flush) 10 ml FLUSH ASDIRECTED PRN PRN Reason: Keep Vein Open Spironolactone (Aldactone) 25 mg PO DAILY [facility] Last Admin: 09/28/19 07:38 Dose: 25 mg - Exam General: Reports: Alert, Oriented HEENT: Reports: Mucous Membr. Moist/[place] Neck: Reports: Supple Lungs: Reports: Clear to Auscultation, Normal Respiratory Effort Cardiovascular: Reports: Regular Rhythm, Tachycardia GI/Abdominal Exam: Normal Bowel Sounds, Soft, Non-Tender Extremities: Normal Inspection, No Pedal Edema Skin: Reports: Warm, Dry Neurological: Reports: No New Focal Deficit
== END 2019-09-28 09:50 | disposition home or self-care (01) ==
LOC: CC.ED 07:24 → CC.MS 08:33 → UNDOADMOB 08:33 → CC.MS 08:55
PROVIDERS: ADMIT Physician Assistant Medical; ATTEND Family Medicine
DX: I48.92 Unspecified atrial flutter (principal); F41.9 Anxiety disorder, unspecified; I50.9 Heart failure, unspecified; E78.00 Pure hypercholesterolemia, unspecified; I48.91 Unspecified atrial fibrillation; E11.40 Type 2 diabetes mellitus with diabetic neuropathy, unspecified; J43.9 Emphysema, unspecified; Z88.8 Allergy status to other drugs, medicaments and biological substances; Z95.0 Presence of cardiac pacemaker; Z98.890 Other specified postprocedural states; Z79.01 Long term (current) use of anticoagulants; Z79.4 Long term (current) use of insulin; Z79.899 Other long term (current) drug therapy
CPT/HCPCS: 36415; 71046; 80048; 80053; 82550; 82962; 83615; 84484; 85025; 85610; 85730; 93005; 96365; 96366; 96375; 99285; A9270; G0378; J1815; J2060; J3480

== ENCOUNTER 2019-09-28 11:40 | Emergency (ER) | payer BC ==
[2019-09-28 12:41] LABS: CHLORIDE,CL 92 mEq/L (98-106); SODIUM,NA 132 mEq/L (136-145)
[2019-09-28] MEDS ORDERED: Furosemide 40 MG/4 ML VIAL IVPUSH ONE (17:05)
--- NOTE | 2019-09-28 17:10 | EDM.PDOC ---
ED HPI GENERAL MEDICAL PROBLEM - General Chief Complaint: General Stated Complaint: SOB Time Seen by Provider: 09/28/19 11:45 Source of Information: Reports: EMS History Limitations: Reports: No Limitations - History of Present Illness INITIAL COMMENTS - FREE TEXT/NARRATIVE: Pt was discharged from our facility approximately one hour ago stating that he was feeling better. Was able to dress himself. Shortly after getting home he developed increase in SOB and called ambulance. He denied any chest pain with it. He had taken extra dose of metalozone prior to coming into hospital yesterday morning. He states that he feels very short of breathe and then he is better and he falls asleep. He states that he has had difficulty sleeping and was sent home with restoril for tonight. He has chronic edema but states that it varies daily. He will have normal respirations and then dose off and then suddenly will wake up and gasp for breathing. Sats in the ER on 4 liters of oxygen 95-100% and remained at that level. Onset: Sudden Location: Reports: Chest Associated Symptoms: Reports: Shortness of Breath. Denies: Chest Pain - Related Data Allergies Allergy/AdvReac Type Severity Reaction Status Date / Time amiodarone Allergy Other Verified 09/28/19 13:02 Home Meds: Home Meds Pramipexole Di-HCl [Mirapex ER] 3 mg PO BEDTIME 12/22/13 [History] Simvastatin [Zocor] 40 mg PO DAILY 12/22/13 [History] Albuterol Sulfate [Proair Hfa] 2 puff INH Q6H PRN 11/24/15 [History] Liraglutide [Victoza] 1.8 mg SQ DAILY 07/07/17 [History] Bumetanide [Bumex] 3 mg PO QAM 11/10/17 [History] Potassium Chloride 40 meq PO BID 11/10/17 [History] Apixaban [Eliquis] 5 mg PO BID 08/08/18 [History] Bumetanide 2 mg PO QPM 08/30/19 [History] LORazepam 0.5 mg PO BID PRN 08/30/19 [History] hydrALAZINE [Apresoline] 10 mg PO TID 08/30/19 [History] metOLazone [Metolazone] 2.5 mg PO TH 08/30/19 [History] Insulin Lispro Protamin/Lispro [Humalog Mix 75-25 Kwikpen] 30 units SUBCUT WITHDINNER 09/27/19 [History] Insulin Lispro Protamin/Lispro [Humalog Mix 75-25 Kwikpen] 56 - 60 units SUBCUT DAILY 09/27/19 [History] Magnesium Oxide 250 mg PO BEDTIME 09/27/19 [History] Metoprolol Succinate 1 tab PO DAILY 09/27/19 [History] Spironolactone [Aldactone] 25 mg PO DAILY 09/27/19 [History] Temazepam [Restoril] 15 mg PO BEDTIME PRN #30 cap 09/28/19 [Rx] Past Medical History HEENT History: Reports: Cataract Cardiovascular History: Reports: Afib, Arrhythmia, Heart Failure, High Cholesterol, Pacemaker Other Cardiovascular History: CHF Respiratory History: Reports: Bronchitis, Recurrent Other Respiratory History: Emphysema Genitourinary History: Reports: Acute Renal Failure Musculoskeletal History: Reports: Osteoarthritis Neurological History: Reports: Neuropathy, Diabetic Psychiatric History: Reports: Depression Endocrine/Metabolic History: Reports: Diabetes, Type II Oncologic (Cancer) History: Reports: Bladder, Prostate Other Dermatologic History: CELLULITIS/BURSITIS OF RIGHT KNEE - Past Surgical History HEENT Surgical History: Reports: Detached Retina Cardiovascular Surgical History: Reports: Cardiac Ablation, Other (See Below) Other Cardiovascular Surgeries/Procedures: CARDIOVERSION GI Surgical History: Reports: Cholecystectomy, Hernia Repair/Other Neurological Surgical History: Reports: C-Spine Other Musculoskeletal Surgeries/Procedures:: ULNAR NERVES ON BOTH ARMS DONE, BACK SURGERIES, NECK SURGERY Social & Family History - Family History Family Medical History: Noncontributory - Tobacco Use Smoking Status *Q: Never Smoker - Caffeine Use Caffeine Use: Reports: Soda - Recreational Drug Use Recreational Drug Use: No - Living Situation & Occupation Living situation: Reports: , with Spouse Occupation: Retired ED ROS GENERAL - Review of Systems Review Of Systems: See Below Constitutional: Reports: Weakness, Fatigue. Denies: Fever, Chills Respiratory: Reports: Shortness of Breath. Denies: Wheezing, Cough Cardiovascular: Reports: Edema. Denies: Chest Pain GI/Abdominal: Reports: No Symptoms Musculoskeletal: Reports: No Symptoms Skin: Reports: No Symptoms Neurological: Reports: No Symptoms ED EXAM, GENERAL - Physical Exam Exam: See Below Exam Limited By: No Limitations General Appearance: Alert, Mild Distress Ears: Normal Canal, Normal TMs Head: Atraumatic, Normocephalic Neck: Normal Inspection, Supple, Non-Tender, Full Range of Motion Respiratory/Chest: Chest Non-Tender, Rales (to bases bilaterally). No: Wheezing , Accessory Muscle Use Cardiovascular: Regular Rate, Rhythm GI/Abdominal: Normal Bowel Sounds, Soft, Non-Tender Back Exam: Normal Inspection Extremities: Non-Tender, Normal Capillary Refill, Pedal Edema (3+ pitting bilaterally.) Neurological: Alert, Oriented, Normal Cognition Psychiatric: Anxious Skin Exam: Warm, Dry, Intact Course - Vital Signs Last Recorded V/S: Last Vital Signs Temp 98.6 F 09/28/19 17:00 Pulse 84 09/28/19 17:00 Resp 18 09/28/19 17:00 BP 88/67 L 09/28/19 17:00 Pulse Ox 92 L 09/28/19 17:00 - Orders/Labs/Meds Orders: Active Orders 24 hr Category Date Time Status Chest 1V Frontal [CR] Stat Exams 09/28/19 12:13 Taken Labs: Laboratory Tests 09/28/19 09/28/19 09/28/19 Range/Units 12:18 12:19 12:19 WBC 10.3 H (5.0-10.0) 10^3/uL RBC 5.59 (4.50-6.00) 10^6/uL Hgb 13.8 L (14.0-18.0) g/dL Hct 44.6 (40.0-54.0) % MCV 79.8 L (82.0-94.0) fL MCH 24.7 L (27.0-32.0) pg MCHC 30.9 L (33.0-38.0) g/dL RDW Coeff of Teja 18.5 H (11.0-15.0) % Plt Count 328 (150-400) 10^3/uL Neut % (Auto) 74.8 (35-85) % Lymph % (Auto) 14.9 (10-55) % [place] % (Auto) 9.8 (0-16) % Eos % (Auto) 0.4 (0-5) % Baso % (Auto) 0.1 (0-3) % Neut # (Auto) 7.67 H (1.80-7.00) 10^3/uL Lymph # (Auto) 1.53 (1.00-4.80) 10^3/uL [place] # (Auto) 1.00 H (0.00-0.80) 10^3/uL Eos # (Auto) 0.04 (0.00-0.45) 10^3/uL Baso # (Auto) 0.01 10^3/uL PT 16.8 H (9.7-12.3) SEC INR 1.68 H (0.92-1.18) APTT 30.3 (23.2-32.3) SEC Sodium 132 L (136-145) mEq/L Potassium 4.4 (3.5-5.0) mEq/L Chloride 92 L (98-106) mEq/L Carbon Dioxide 25 (21-32) mmol/L BUN 68 H (7-18) mg/dL Creatinine 2.6 H* (0.7-1.3) mg/dL Est Cr Clr Drug Dosing TNP Estimated GFR (MDRD) 25 L (>=60) mL/min Glucose 137 H D (75-99) mg/dL Calcium 9.8 (8.4-10.1) mg/dL Total Bilirubin 2.8 H (0.0-1.0) mg/dL AST 372 H* (15-37) U/L ALT 226 H (12-78) U/L Alkaline Phosphatase 369 H (46-116) U/L Lactate Dehydrogenase 479 H (100-190) U/L Creatine Kinase 139 (35-232) U/L Troponin I 0.171 H (0.00-0.06) ng/mL NT-Pro-B Natriuret Pep 5823 H (0-1000) pg/mL Total Protein 7.1 (6.4-8.2) g/dL Albumin 3.3 L (3.4-5.0) g/dL Lipase 171 (73-393) U/L Meds: Medications Discontinued Medications Generic Name Dose Route Start Last Admin Trade Name Freq PRN Reason Stop Dose Admin Furosemide 40 mg 09/28/19 17:05 09/28/19 17:26 Lasix IVPUSH 09/28/19 17:06 40 mg ONETIME ONE Administration - Re-Assessments/Exams Free Text/Narrative Re-Assessment/Exam: 09/28/19 1230 called placed to Cardiology in [facility] as requested as he had called them prior to coming in. Message left for Sharita at cardiology. 09/28/19 1400 Sharita returned call and info given. Will discuss with cardiology and get back to me. 1630 Liliana Aguilera TREE INSPECTOR with cardiology returned call and feels that he needs to be transferred to [facility]. Instructed me to call One call for accepting MD> 1645 [facility] one call was contacted and discussed with Dr. Santo Rivera and he did accept him on transfer. He did request IV bumex but we do not carry it so IV Lasix was given. He will be transferred ALS. to [place]. PT does remain in [facility] at time of transfer. Risks of transfer were discussed with Ger to include risk of worsening SOB and CHF enroute, MVA. Benefits of transfer include experts in cardiology that would be available as well as ICU as needed. Risks of not transferring include worsening of CHF and needing emergent transfer and possible . Benefits of not transferring is to stay close to home. Pt voices understanding and wishes to transfer. 09/29/19 07:25 Departure - Departure Time of Disposition: 17:00 Disposition: DC/Tfer to Acute Hospital 02 Condition: Serious Clinical Impression: CHF, Congestive heart failure - Discharge Information *PRESCRIPTION DRUG MONITORING PROGRAM REVIEWED*: Not Applicable *COPY OF PRESCRIPTION DRUG MONITORING REPORT IN PATIENT CHASITY: Not Applicable Referrals: Casey Cummings PA-C [Primary Care Provider] - Forms: ED Department Discharge Additional Instructions: transfer to [facility] to Dr. Santo Rivera He had requested for IV bumex to be given but we do not carry that so IV Lasix 40 mg was given. Sepsis Event Note - Evaluation Sepsis Screening Result: No Definite Risk - Focused Exam Date Exam was Performed: 09/29/19 Time Exam was Performed: 07:20 - Problem List & Annotations (1) Acute on chronic congestive heart failure SNOMED Code(s): 240225973, [id number] Code(s): I50.9 - HEART FAILURE, UNSPECIFIED Status: Acute Priority: High Annotation/Comment:: GrADE 3 Qualifiers: Heart failure type: diastolic Qualified Code(s): I50.33 - Acute on chronic diastolic (congestive) heart failure - Problem List Review Problem List Initiated/Reviewed/Updated: Yes - My Orders Last 24 Hours: My Active Orders 09/28/19 12:13 Chest 1V Frontal [CR] Stat - Assessment/Plan Last 24 Hours: My Active Orders 09/28/19 12:13 Chest 1V Frontal [CR] Stat
[2019-09-28 17:34] VITALS: BP 88/67; PULSE 84
== END 2019-09-28 17:20 ==
LOC: CC.ED 11:40
DX: I50.33 Acute on chronic diastolic (congestive) heart failure (principal); I48.91 Unspecified atrial fibrillation; E78.00 Pure hypercholesterolemia, unspecified; F32.9 Major depressive disorder, single episode, unspecified; J43.9 Emphysema, unspecified; E11.40 Type 2 diabetes mellitus with diabetic neuropathy, unspecified; Z88.8 Allergy status to other drugs, medicaments and biological substances; Z79.899 Other long term (current) drug therapy; Z79.4 Long term (current) use of insulin; Z79.01 Long term (current) use of anticoagulants
CPT/HCPCS: 36415; 71045; 80053; 82550; 83615; 83690; 83880; 84484; 85025; 85610; 85730; 93005; 96374; 99285-25; J1940

== ENCOUNTER 2020-05-17 07:06 | Emergency (ER) | payer BC ==
[2020-05-17] MEDS ORDERED: Aspirin 81 MG Tab.Chew PO ONE (07:18)
--- NOTE | 2020-05-17 07:40 | EDM.PDOC ---
ED HPI GENERAL MEDICAL PROBLEM - General Chief Complaint: Chest Pain Stated Complaint: CP Time Seen by Provider: 05/17/20 07:26 Source of Information: Reports: Patient History Limitations: Reports: No Limitations - History of Present Illness INITIAL COMMENTS - FREE TEXT/NARRATIVE: States that his defibrillator went off about 1400 yesterday and he did call down to [facility] and report it but has not had a call back from them. He states that since then he feels like someone is sitting on his chest. He states that he is always SOB and he doesn't feel any more SOB than his normal. He denies any increase in edema. Currently his EKG shows NSR. He states that he is normally in a. fib. Onset Date: 05/16/20 Onset Time: 14:00 Location: Reports: Chest Worsens with: Reports: Movement Middle Chest Pain Score (Numeric/FACES): 4 - Related Data Allergies Allergy/AdvReac Type Severity Reaction Status Date / Time amiodarone Allergy Other Verified 05/17/20 07:27 Home Meds: Home Meds Pramipexole Di-HCl [Mirapex ER] 3 mg PO BEDTIME 12/22/13 [History] Simvastatin [Zocor] 40 mg PO DAILY 12/22/13 [History] Albuterol Sulfate [Proair Hfa] 2 puff INH Q6H PRN 11/24/15 [History] Bumetanide [Bumex] 3 mg PO QAM 11/10/17 [History] Potassium Chloride 40 meq PO BID 11/10/17 [History] Apixaban [Eliquis] 5 mg PO BID 08/08/18 [History] Bumetanide 2 mg PO QPM 08/30/19 [History] LORazepam 0.5 mg PO BID PRN 08/30/19 [History] metOLazone [Metolazone] 2.5 mg PO TH 08/30/19 [History] Insulin Lispro Protamin/Lispro [Humalog Mix 75-25 Kwikpen] 30 units SUBCUT WITHDINNER 09/27/19 [History] Insulin Lispro Protamin/Lispro [Humalog Mix 75-25 Kwikpen] 56 - 60 units SUBCUT DAILY 09/27/19 [History] Spironolactone [Aldactone] 25 mg PO DAILY 09/27/19 [History] Temazepam [Restoril] 15 mg PO BEDTIME PRN #30 cap 09/28/19 [Rx] Metoprolol Succinate 25 mg PO DAILY 05/17/20 [History] Potassium Chloride 40 meq PO QPM 05/17/20 [History] Tamsulosin HCl 0.4 mg PO DAILY 05/17/20 [History] traZODone HCl [Trazodone HCl] 50 mg PO BEDTIME PRN 05/17/20 [History] Past Medical History HEENT History: Reports: Cataract Cardiovascular History: Reports: Afib, Arrhythmia, Heart Failure, High Cholesterol, Hypertension, Pacemaker Other Cardiovascular History: CHF Respiratory History: Reports: Bronchitis, Recurrent Other Respiratory History: Emphysema Genitourinary History: Reports: Acute Renal Failure Musculoskeletal History: Reports: Osteoarthritis Neurological History: Reports: Neuropathy, Diabetic Psychiatric History: Reports: Depression Endocrine/Metabolic History: Reports: Diabetes, Type II Oncologic (Cancer) History: Reports: Bladder, Prostate Other Dermatologic History: CELLULITIS/BURSITIS OF RIGHT KNEE - Past Surgical History HEENT Surgical History: Reports: Detached Retina Cardiovascular Surgical History: Reports: Cardiac Ablation, Other (See Below) Other Cardiovascular Surgeries/Procedures: CARDIOVERSION GI Surgical History: Reports: Cholecystectomy, Hernia Repair/Other Neurological Surgical History: Reports: C-Spine Other Musculoskeletal Surgeries/Procedures:: ULNAR NERVES ON BOTH ARMS DONE, BACK SURGERIES, NECK SURGERY Social & Family History - Family History Family Medical History: Noncontributory - Tobacco Use Smoking Status *Q: Never Smoker Second Hand Smoke Exposure: No - Caffeine Use Caffeine Use: Reports: Soda - Recreational Drug Use Recreational Drug Use: No - Living Situation & Occupation Living situation: Reports: , with Spouse Occupation: Retired ED ROS GENERAL - Review of Systems Review Of Systems: See Below Constitutional: Denies: Fever, Chills HEENT: Reports: No Symptoms Respiratory: Reports: Shortness of Breath Cardiovascular: Reports: Chest Pain, Lightheadedness. Denies: Edema GI/Abdominal: Reports: No Symptoms Musculoskeletal: Reports: No Symptoms Skin: Reports: No Symptoms Neurological: Reports: No Symptoms Psychiatric: Reports: Anxiety ED EXAM, GENERAL - Physical Exam Exam: See Below Exam Limited By: No Limitations General Appearance: Alert, WD/WN, Mild Distress Throat/Mouth: Normal Inspection, Normal Oropharynx Head: Atraumatic, Normocephalic Neck: Normal Inspection, Supple, Non-Tender, Full Range of Motion Respiratory/Chest: Decreased Breath Sounds (to bases due to poor inspiratory effort.), Rales (few fine rales to bases.) Cardiovascular: Regular Rate, Rhythm GI/Abdominal: Normal Bowel Sounds, Soft, Non-Tender Extremities: Pedal Edema (trace bilaterally.) Neurological: Alert, Oriented, Normal Cognition Skin Exam: Warm, Dry, Intact Course - Vital Signs Last Recorded V/S: Last Vital Signs Temp 98.0 F 05/17/20 07:23 Pulse 62 05/17/20 07:23 Resp 16 05/17/20 07:23 BP 125/87 05/17/20 07:23 Pulse Ox 94 L 05/17/20 07:23 - Orders/Labs/Meds Orders: Active Orders 24 hr Category Date Time Status Chest 2V [CR] Stat Exams 05/17/20 07:16 Ordered COMPREHENSIVE METABOLIC PN,CMP [CHEM] Stat Lab 05/17/20 07:25 Received CREATINE KINASE,CK [CHEM] Stat Lab 05/17/20 07:25 Received INR,PT,PROTHROMBIN TIME [COAG] Stat Lab 05/17/20 07:25 Received LACTATE DEHYDROGENASE,LDH [CHEM] Stat Lab 05/17/20 07:25 Received LIPASE [CHEM] Stat Lab 05/17/20 07:25 Received TROPONIN I [CHEM] Stat Lab 05/17/20 07:25 Received Labs: Laboratory Tests 05/17/20 Range/Units 07:25 WBC 5.9 (5.0-10.0) 10^3/uL RBC 5.21 (4.50-6.00) 10^6/uL Hgb 14.5 (14.0-18.0) g/dL Hct 45.2 (40.0-54.0) % MCV 86.8 (82.0-94.0) fL MCH 27.8 (27.0-32.0) pg MCHC 32.1 L (33.0-38.0) g/dL RDW Coeff of Etja 17.6 H (11.0-15.0) % Plt Count 181 (150-400) 10^3/uL Neut % (Auto) 66.2 (35-85) % Lymph % (Auto) 22.3 (10-55) % [place] % (Auto) 9.2 (0-16) % Eos % (Auto) 2.0 (0-5) % Baso % (Auto) 0.3 (0-3) % Neut # (Auto) 3.89 (1.80-7.00) 10^3/uL Lymph # (Auto) 1.31 (1.00-4.80) 10^3/uL [place] # (Auto) 0.54 (0.00-0.80) 10^3/uL Eos # (Auto) 0.12 (0.00-0.45) 10^3/uL Baso # (Auto) 0.02 10^3/uL Meds: Medications Discontinued Medications Generic Name Dose Route Start Last Admin Trade Name Freq PRN Reason Stop Dose Admin Aspirin 324 mg 05/17/20 07:18 05/17/20 07:21 Aspirin PO 05/17/20 07:19 324 mg ONETIME ONE Administration - Re-Assessments/Exams Free Text/Narrative Re-Assessment/Exam: 05/17/20 08:[address] Pandey and reviewed normal cardiac enzymes and EKG in NSR with him. Message left with the cardiology clinic at [facility] to call back as no one answered their phone will discharge at this time. Departure - Departure Time of Disposition: 08:10 Disposition: Home, Self-Care 01 Condition: Fair Clinical Impression: Defibrillator discharge CAD (coronary artery disease) Qualifiers: Coronary Disease-Associated Artery/Lesion type: unspecified vessel or lesion type [place] vs. transplanted heart: [place] heart Associated angina: with unspecified angina Qualified Code(s): I25.119 - Atherosclerotic heart disease of [place] coronary artery with unspecified angina pectoris Referrals: Casey Cummings PA-C [Primary Care Provider] - Additional Instructions: contact the [facility] today to relay rhythm via PM as you have done in the past I will call you after the [facility] office has returned the call if any additional workup is needed recheck if pain reoccurs. Sepsis Event Note (ED) - Evaluation Sepsis Screening Result: No Definite Risk - Focused Exam Vital Signs: Vital Signs Temp Pulse Resp BP Pulse Ox 05/17/20 07:23 98.0 F 62 16 125/87 94 L 05/17/20 07:07 97.6 F 67 20 124/90 97 - Problem List & Annotations (1) CAD (coronary artery disease) SNOMED Code(s): 63836731 Code(s): I25.10 - ATHSCL HEART DISEASE OF [place] CORONARY ARTERY W/O ANG PCTRS Status: Acute Priority: High Current Visit: Yes Qualifiers: Coronary Disease-Associated Artery/Lesion type: unspecified vessel or lesion type [place] vs. transplanted heart: [place] heart Associated angina: with unspecified angina Qualified Code(s): I25.119 - Atherosclerotic heart disease of [place] coronary artery with unspecified angina pectoris (2) Defibrillator discharge SNOMED Code(s): 358184120, 541358525 Code(s): Z45.02 - ENCNTR FOR ADJUST AND MGMT OF AUTOMATIC IMPLNTBL CARD DEFIB Status: Acute Priority: High Current Visit: Yes - Problem List Review Problem List Initiated/Reviewed/Updated: Yes - My Orders Last 24 Hours: My Active Orders 05/17/20 07:16 Chest 2V [CR] Stat 05/17/20 07:25 COMPREHENSIVE METABOLIC PN,CMP [CHEM] Stat CREATINE KINASE,CK [CHEM] Stat INR,PT,PROTHROMBIN TIME [COAG] Stat LACTATE DEHYDROGENASE,LDH [CHEM] Stat LIPASE [CHEM] Stat TROPONIN I [CHEM] Stat - Assessment/Plan Last 24 Hours: My Active Orders 05/17/20 07:16 Chest 2V [CR] Stat 05/17/20 07:25 COMPREHENSIVE METABOLIC PN,CMP [CHEM] Stat CREATINE KINASE,CK [CHEM] Stat INR,PT,PROTHROMBIN TIME [COAG] Stat LACTATE DEHYDROGENASE,LDH [CHEM] Stat LIPASE [CHEM] Stat TROPONIN I [CHEM] Stat
[2020-05-17 08:02] VITALS: BP 119/85; PULSE 57
== END 2020-05-17 08:28 | disposition home or self-care (01) ==
LOC: CC.ED 07:06
DX: T82.199A Other mechanical complication of unspecified cardiac device, initial encounter (principal); I25.119 Atherosclerotic heart disease of native coronary artery with unspecified angina pectoris; I11.0 Hypertensive heart disease with heart failure; I50.9 Heart failure, unspecified; E11.40 Type 2 diabetes mellitus with diabetic neuropathy, unspecified; F32.9 Major depressive disorder, single episode, unspecified; J43.9 Emphysema, unspecified; I48.91 Unspecified atrial fibrillation; E78.00 Pure hypercholesterolemia, unspecified; Z90.49 Acquired absence of other specified parts of digestive tract; Z88.8 Allergy status to other drugs, medicaments and biological substances; Z79.4 Long term (current) use of insulin; Z79.01 Long term (current) use of anticoagulants; Z79.899 Other long term (current) drug therapy
CPT/HCPCS: 36415; 71046; 80053; 82550; 83615; 83690; 84484; 85025; 85610; 93005; 99285-25; A9270-GY

== ENCOUNTER 2020-07-09 16:31 | Emergency (ER) | payer BC ==
--- NOTE | 2020-07-09 17:29 | EDM.PDOC ---
ED HPI GENERAL MEDICAL PROBLEM - General Chief Complaint: General Stated Complaint: ER Time Seen by Provider: 07/09/20 17:10 Source of Information: Reports: Patient, RN History Limitations: Reports: No Limitations - History of Present Illness INITIAL COMMENTS - FREE TEXT/NARRATIVE: States that has has been constipated for 2 days and has been straining some today. States that he has been drinking more than normal and has lost 12# in the last week. He had felt very weak and lightheaded at home and on his machine his BP was in the 80's. He then vomited and he felt much better. He denies any nausea at this time. He also had a small hard stool at home. When arriving here his BP was normal and he felt better. He denies any chest pain with it. Denies feeling SOB at this time. EKG is NSR and he states that it has been since they put his pace maker in. Denies any peripheral edema in the last week. Currently he states that he "feels pretty good" states that he hasn't been eating well since Wednesday. Onset: Gradual Location: Reports: Abdomen Generalized Pain Score (Numeric/FACES): 4 - Related Data Allergies Allergy/AdvReac Type Severity Reaction Status Date / Time amiodarone Allergy Other Verified 07/09/20 16:55 Home Meds: Home Meds Pramipexole Di-HCl [Mirapex ER] 3 mg PO BEDTIME 12/22/13 [History] Simvastatin [Zocor] 40 mg PO DAILY 12/22/13 [History] Albuterol Sulfate [Proair Hfa] 2 puff INH Q6H PRN 11/24/15 [History] Bumetanide [Bumex] 4 mg PO QAM 11/10/17 [History] Potassium Chloride 60 meq PO QAM 11/10/17 [History] Apixaban [Eliquis] 5 mg PO BID 08/08/18 [History] Bumetanide 2 mg PO QPM 08/30/19 [History] LORazepam 0.5 mg PO BID PRN 08/30/19 [History] metOLazone [Metolazone] 2.5 mg PO TH PRN 08/30/19 [History] Insulin Lispro Protamin/Lispro [Humalog Mix 75-25 Kwikpen] 30 - 50 units SUBCUT QPM 09/27/19 [History] Insulin Lispro Protamin/Lispro [Humalog Mix 75-25 Kwikpen] 50 - 60 units SUBCUT QAM 09/27/19 [History] Spironolactone [Aldactone] 25 mg PO DAILY 09/27/19 [History] Temazepam [Restoril] 15 mg PO BEDTIME PRN #30 cap 09/28/19 [Rx] Metoprolol Succinate 25 mg PO DAILY 05/17/20 [History] Potassium Chloride 40 meq PO QPM 05/17/20 [History] Tamsulosin HCl 0.4 mg PO DAILY 05/17/20 [History] traZODone HCl [Trazodone HCl] 50 mg PO BEDTIME PRN 05/17/20 [History] Past Medical History HEENT History: Reports: Cataract Cardiovascular History: Reports: Afib, Arrhythmia, Heart Failure, High Cholesterol, Hypertension, Pacemaker Other Cardiovascular History: CHF Respiratory History: Reports: Bronchitis, Recurrent Other Respiratory History: Emphysema Gastrointestinal History: Reports: Other (See Below) Other Gastrointestinal History: umbilical hernia Genitourinary History: Reports: Acute Renal Failure Musculoskeletal History: Reports: Osteoarthritis Neurological History: Reports: Neuropathy, Diabetic Psychiatric History: Reports: Depression Endocrine/Metabolic History: Reports: Diabetes, Type II Oncologic (Cancer) History: Reports: Bladder, Prostate Other Oncologic History: skin cancer on back Dermatologic History: Reports: Other (See Below) Other Dermatologic History: CELLULITIS/BURSITIS OF RIGHT KNEE - Past Surgical History HEENT Surgical History: Reports: Detached Retina Cardiovascular Surgical History: Reports: Cardiac Ablation, Other (See Below) Other Cardiovascular Surgeries/Procedures: CARDIOVERSION Respiratory Surgical History: Reports: None GI Surgical History: Reports: Cholecystectomy, Hernia Repair/Other Male Surgical History: Reports: Prostatectomy Endocrine Surgical History: Reports: None Neurological Surgical History: Reports: C-Spine Musculoskeletal Surgical History: Reports: Hip Replacement, Other (See Below) Other Musculoskeletal Surgeries/Procedures:: ULNAR NERVES ON BOTH ARMS DONE, BACK SURGERIES, NECK SURGERY Oncologic Surgical History: Reports: None Dermatological Surgical History: Reports: Skin Biopsy Social & Family History - Family History Family Medical History: No Pertinent Family History - Tobacco Use Tobacco Use Status *Q: Never Tobacco User Second Hand Smoke Exposure: No - Caffeine Use Caffeine Use: Reports: Soda - Living Situation & Occupation Living situation: Reports: , with Spouse Occupation: Retired ED ROS GENERAL - Review of Systems Review Of Systems: See Below Constitutional: Denies: Fever, Chills Respiratory: Reports: No Symptoms Cardiovascular: Denies: Chest Pain, Edema GI/Abdominal: Reports: Abdominal Pain, Constipation, Decreased Appetite. Denies: Diarrhea : Denies: Dysuria, Incontinence Skin: Reports: No Symptoms ED EXAM, GENERAL - Physical Exam Exam: See Below Exam Limited By: No Limitations General Appearance: Alert, WD/WN, Mild Distress Ears: Normal External Exam, Normal Canal, Normal TMs Head: Atraumatic Neck: Normal Inspection Respiratory/Chest: No Respiratory Distress, Lungs Clear, Decreased Breath Sounds (to bases bilaterally). No: Rales, Wheezing Cardiovascular: Regular Rate, Rhythm, No Edema GI/Abdominal: Soft, Non-Tender, Abnormal Bowel Sounds (bowel sounds are decreased ). No: Guarding, Rigid Extremities: No Pedal Edema, Normal Capillary Refill Neurological: Alert, Oriented Psychiatric: Normal Affect Skin Exam: Warm, Dry, Intact Course - Vital Signs Last Recorded V/S: Last Vital Signs Temp 97.2 F 07/09/20 18:10 Pulse 70 07/09/20 18:10 Resp 18 07/09/20 18:10 BP 111/62 07/09/20 18:10 Pulse Ox 96 07/09/20 18:10 - Orders/Labs/Meds Orders: Active Orders 24 hr Category Date Time Status Abdomen 2V AP Flat Upright [CR] Stat Exams 07/09/20 17:30 Taken Chest 2V [CR] Stat Exams 07/09/20 17:11 Taken Labs: Laboratory Tests 07/09/20 07/09/20 07/09/20 Range/Units 16:45 17:11 17:11 WBC 11.3 H (5.0-10.0) 10^3/uL RBC 5.45 (4.50-6.00) 10^6/uL Hgb 15.7 (14.0-18.0) g/dL Hct 47.1 (40.0-54.0) % MCV 86.4 (82.0-94.0) fL MCH 28.8 (27.0-32.0) pg MCHC 33.3 (33.0-38.0) g/dL RDW Coeff of Teja 15.4 H (11.0-15.0) % Plt Count 158 (150-400) 10^3/uL Neut % (Auto) 85.3 H (35-85) % Lymph % (Auto) 8.4 L (10-55) % [place] % (Auto) 5.7 (0-16) % Eos % (Auto) 0.4 (0-5) % Baso % (Auto) 0.2 (0-3) % Neut # (Auto) 9.65 H (1.80-7.00) 10^3/uL Lymph # (Auto) 0.95 L (1.00-4.80) 10^3/uL [place] # (Auto) 0.65 (0.00-0.80) 10^3/uL Eos # (Auto) 0.05 (0.00-0.45) 10^3/uL Baso # (Auto) 0.02 10^3/uL PT (9.7-12.3) SEC INR (0.92-1.18) APTT (23.2-32.3) SEC D-Dimer, Quantitative (0.00-0.50) Sodium 136 (136-145) mEq/L Potassium 4.4 (3.5-5.0) mEq/L Chloride 95 L (98-106) mEq/L Carbon Dioxide 34 H (21-32) mmol/L BUN 51 H (7-18) mg/dL Creatinine 2.6 H* D (0.7-1.3) mg/dL Est Cr Clr Drug Dosing 35.24 mL/min Estimated GFR (MDRD) 25 L (>=60) mL/min Glucose 293 H (75-99) mg/dL Calcium 9.6 (8.4-10.1) mg/dL Total Bilirubin 1.0 (0.0-1.0) mg/dL AST 29 (15-37) U/L ALT 36 (12-78) U/L Alkaline Phosphatase 206 H (46-116) U/L Lactate Dehydrogenase 186 (100-190) U/L Creatine Kinase 77 (35-232) U/L Troponin I 0.081 H (0.00-0.06) ng/mL NT-Pro-B Natriuret Pep 2182 H (0-1000) pg/mL Total Protein 8.0 (6.4-8.2) g/dL Albumin 3.9 (3.4-5.0) g/dL Lipase 122 (73-393) U/L SARS CoV-2 RNA Rapid DOROTHY Negative (NEGATIVE) 07/09/20 07/09/20 07/09/20 Range/Units 17:11 21:05 21:05 WBC (5.0-10.0) 10^3/uL RBC (4.50-6.00) 10^6/uL Hgb (14.0-18.0) g/dL Hct (40.0-54.0) % MCV (82.0-94.0) fL MCH (27.0-32.0) pg MCHC (33.0-38.0) g/dL RDW Coeff of Teja (11.0-15.0) % Plt Count (150-400) 10^3/uL Neut % (Auto) (35-85) % Lymph % (Auto) (10-55) % [place] % (Auto) (0-16) % Eos % (Auto) (0-5) % Baso % (Auto) (0-3) % Neut # (Auto) (1.80-7.00) 10^3/uL Lymph # (Auto) (1.00-4.80) 10^3/uL [place] # (Auto) (0.00-0.80) 10^3/uL Eos # (Auto) (0.00-0.45) 10^3/uL Baso # (Auto) 10^3/uL PT 11.0 (9.7-12.3) SEC INR 1.09 (0.92-1.18) APTT 23.9 (23.2-32.3) SEC D-Dimer, Quantitative 1.03 H (0.00-0.50) Sodium (136-145) mEq/L Potassium (3.5-5.0) mEq/L Chloride (98-106) mEq/L Carbon Dioxide (21-32) mmol/L BUN 53 H (7-18) mg/dL Creatinine 2.5 H (0.7-1.3) mg/dL Est Cr Clr Drug Dosing 36.65 mL/min Estimated GFR (MDRD) 26 L (>=60) mL/min Glucose (75-99) mg/dL Calcium (8.4-10.1) mg/dL Total Bilirubin (0.0-1.0) mg/dL AST (15-37) U/L ALT (12-78) U/L Alkaline Phosphatase (46-116) U/L Lactate Dehydrogenase 193 H (100-190) U/L Creatine Kinase 79 (35-232) U/L Troponin I 0.074 H (0.00-0.06) ng/mL NT-Pro-B Natriuret Pep (0-1000) pg/mL Total Protein (6.4-8.2) g/dL Albumin (3.4-5.0) g/dL Lipase (73-393) U/L SARS CoV-2 RNA Rapid DOROTHY (NEGATIVE) Meds: Medications Discontinued Medications Generic Name Dose Route Start Last Admin Trade Name Freq PRN Reason Stop Dose Admin Sodium Chloride 500 mls @ 125 mls/hr 07/09/20 18:00 07/09/20 18:30 Normal Saline IV 125 mls/hr ASDIRECTED [facility] Administration - Re-Assessments/Exams Free Text/Narrative Re-Assessment/Exam: 07/09/20 18:05 Small hard bowel movement noted. He states that he feels taht he can go more. abdomen remains soft and nontender. Discussed that his creatinine and BUN are both up and that the Troponin is up slightly. Will give 500 ml of fluids, fleets enema, and then repeat labs at 2100. Pt voices understanding of this. 07/09/202129 Troponin has gone down slightly. He has had additional BM and feels better. BP has been stable. He refused the enema that had been ordered as he has BM on own. Encouraged him to drink and to recheck in the clinic on Wednesday with repeat panel to monitor the increase in the his kidney functions. Departure - Departure Time of Disposition: 22:00 Disposition: Home, Self-Care 01 Condition: Fair Clinical Impression: Acute on chronic renal insufficiency Constipation Qualifiers: Constipation type: drug induced constipation Qualified Code(s): K59.03 - Drug induced constipation - Discharge Information *PRESCRIPTION DRUG MONITORING PROGRAM REVIEWED*: Not Applicable *COPY OF PRESCRIPTION DRUG MONITORING REPORT IN PATIENT CHASITY: Not Applicable Referrals: Elmer Pandey MD [Primary Care Provider] - Forms: ED Department Discharge Additional Instructions: Make an appointment to be seen Wednesday in the clinic. Adeola will put lab orders in your clinic chart; come in 15 minutes early to have labs drawn first. Drink an increased amount of fluids. Sepsis Event Note (ED) - Focused Exam Vital Signs: Vital Signs Temp Pulse Resp BP Pulse Ox 07/09/20 18:10 97.2 F 70 18 111/62 96 07/09/20 17:00 72 121/54 L 07/09/20 16:40 97.2 F 80 18 120/71 95 - Problem List & Annotations (1) Acute on chronic renal insufficiency SNOMED Code(s): 590606190 Code(s): N28.9 - DISORDER OF KIDNEY AND URETER, UNSPECIFIED; N18.9 - CHRONIC KIDNEY DISEASE, UNSPECIFIED Status: Chronic Priority: High (2) Constipation SNOMED Code(s): 29711266 Code(s): K59.00 - CONSTIPATION, UNSPECIFIED Status: Acute Priority: Medium Qualifiers: Constipation type: drug induced constipation Qualified Code(s): K59.03 - Drug induced constipation (3) Acute on chronic congestive heart failure SNOMED Code(s): 203858817, 56172558246499 Code(s): I50.9 - HEART FAILURE, UNSPECIFIED Status: Acute Priority: High Annotation/Comment:: GrADE 3 Qualifiers: Heart failure type: diastolic Qualified Code(s): I50.33 - Acute on chronic diastolic (congestive) heart failure - My Orders Last 24 Hours: My Active Orders 07/09/20 17:11 Chest 2V [CR] Stat 07/09/20 17:30 Abdomen 2V AP Flat Upright [CR] Stat - Assessment/Plan Last 24 Hours: My Active Orders 07/09/20 17:11 Chest 2V [CR] Stat 07/09/20 17:30 Abdomen 2V AP Flat Upright [CR] Stat
[2020-07-09 17:39] LABS: PTT,PARTIAL THROMBOPLSTIN TIME 23.9 SEC (23.2-32.3)
[2020-07-09] MEDS ORDERED: Sodium Chloride 0.9% 500 ML IV SCH (18:00)
[2020-07-09 19:54] VITALS: BP 111/62; PULSE 70
== END 2020-07-09 22:10 | disposition home or self-care (01) ==
LOC: CC.ED 16:31
DX: K59.03 Drug induced constipation (principal); I13.0 Hypertensive heart and chronic kidney disease with heart failure and stage 1 through stage 4 chronic kidney disease, or unspecified chronic kidney disease; E11.22 Type 2 diabetes mellitus with diabetic chronic kidney disease; N18.9 Chronic kidney disease, unspecified; I50.9 Heart failure, unspecified; N17.9 Acute kidney failure, unspecified; E78.00 Pure hypercholesterolemia, unspecified; I48.91 Unspecified atrial fibrillation; E11.40 Type 2 diabetes mellitus with diabetic neuropathy, unspecified; F32.9 Major depressive disorder, single episode, unspecified; Z88.8 Allergy status to other drugs, medicaments and biological substances; Z79.899 Other long term (current) drug therapy; Z79.01 Long term (current) use of anticoagulants; Z79.4 Long term (current) use of insulin; Z20.828 Contact with and (suspected) exposure to other viral communicable diseases
CPT/HCPCS: 36415; 71046; 74019; 80053; 82550; 82565; 83615; 83690; 83880; 84484; 84520; 85025; 85379; 85610; 85730; 87635; 93005; 99284; J7040; U0002

== ENCOUNTER 2020-12-21 18:27 | Emergency (ER) | payer BC ==
[2020-12-21] MEDS ORDERED: Bacitracin/Neomycin/Polymyxin B Oint 0.9 GM U/D Packet ONE (18:28)
[2020-12-21 18:33] VITALS: BP 108/66; PULSE 70
[2020-12-21] MEDS ORDERED: Take Home: Cephalexin 500 MG Cap, 4 Cap Pack PO ONE (18:46)
--- NOTE | 2020-12-21 18:51 | EDM.PDOC ---
ED HPI GENERAL MEDICAL PROBLEM - General Chief Complaint: General Stated Complaint: leg infection Time Seen by Provider: 12/21/20 18:35 Source of Information: Reports: Patient History Limitations: Reports: No Limitations - History of Present Illness INITIAL COMMENTS - FREE TEXT/NARRATIVE: Ger is a 65 year old male who presents to ER with concerns of a wound to his left mahajan. Unsure exactly how obtained wound. Was crawling around in his boat this week while cleaning this and thinks possibly scraped his leg. He has significant neuropathy in his legs so denies any pain or awareness of when it actually occurred. Started out with a scab but now today, noted drainage from the wound and became concerned due to history of diabetes. No increase in redness, states red and devante appearing all the time. No fevers. Onset: Gradual Duration: Day(s): Location: Reports: Lower Extremity, Left Associated Symptoms: Reports: No Other Symptoms - Related Data Allergies Allergy/AdvReac Type Severity Reaction Status Date / Time amiodarone Allergy Other Verified 12/21/20 18:28 Home Meds: Home Meds Pramipexole Di-HCl [Mirapex ER] 3 mg PO BEDTIME 12/22/13 [History] Simvastatin [Zocor] 40 mg PO DAILY 12/22/13 [History] Albuterol Sulfate [Proair Hfa] 2 puff INH Q6H PRN 11/24/15 [History] Bumetanide [Bumex] 4 mg PO QAM 11/10/17 [History] Potassium Chloride 60 meq PO QAM 11/10/17 [History] Apixaban [Eliquis] 5 mg PO BID 08/08/18 [History] Bumetanide 2 mg PO QPM 08/30/19 [History] LORazepam 0.5 mg PO BID PRN 08/30/19 [History] metOLazone [Metolazone] 2.5 mg PO TH PRN 08/30/19 [History] Insulin Lispro Protamin/Lispro [Humalog Mix 75-25 Kwikpen] 30 - 50 units SUBCUT QPM 09/27/19 [History] Insulin Lispro Protamin/Lispro [Humalog Mix 75-25 Kwikpen] 50 - 60 units SUBCUT QAM 09/27/19 [History] Spironolactone [Aldactone] 25 mg PO DAILY 09/27/19 [History] Temazepam [Restoril] 15 mg PO BEDTIME PRN #30 cap 09/28/19 [Rx] Metoprolol Succinate 25 mg PO DAILY 05/17/20 [History] Potassium Chloride 40 meq PO QPM 05/17/20 [History] Tamsulosin HCl 0.4 mg PO DAILY 05/17/20 [History] traZODone HCl [Trazodone HCl] 50 mg PO BEDTIME PRN 05/17/20 [History] Past Medical History HEENT History: Reports: Cataract Cardiovascular History: Reports: Afib, Arrhythmia, Heart Failure, High Cholesterol, Hypertension, Pacemaker Other Cardiovascular History: CHF Respiratory History: Reports: Bronchitis, Recurrent Other Respiratory History: Emphysema Gastrointestinal History: Reports: Other (See Below) Other Gastrointestinal History: umbilical hernia Genitourinary History: Reports: Acute Renal Failure Musculoskeletal History: Reports: Osteoarthritis Neurological History: Reports: Neuropathy, Diabetic Psychiatric History: Reports: Depression Endocrine/Metabolic History: Reports: Diabetes, Type II Oncologic (Cancer) History: Reports: Bladder, Prostate Other Oncologic History: skin cancer on back Dermatologic History: Reports: Other (See Below) Other Dermatologic History: CELLULITIS/BURSITIS OF RIGHT KNEE - Past Surgical History HEENT Surgical History: Reports: Detached Retina Cardiovascular Surgical History: Reports: Cardiac Ablation, Other (See Below) Other Cardiovascular Surgeries/Procedures: CARDIOVERSION Respiratory Surgical History: Reports: None GI Surgical History: Reports: Cholecystectomy, Hernia Repair/Other Male Surgical History: Reports: Prostatectomy Endocrine Surgical History: Reports: None Neurological Surgical History: Reports: C-Spine Musculoskeletal Surgical History: Reports: Hip Replacement, Other (See Below) Other Musculoskeletal Surgeries/Procedures:: ULNAR NERVES ON BOTH ARMS DONE, BACK SURGERIES, NECK SURGERY Oncologic Surgical History: Reports: None Dermatological Surgical History: Reports: Skin Biopsy Social & Family History - Family History Family Medical History: No Pertinent Family History - Tobacco Use Tobacco Use Status *Q: Unknown Ever Used Tobacco - Caffeine Use Caffeine Use: Reports: Soda - Living Situation & Occupation Living situation: Reports: , with Spouse Occupation: Retired ED ROS GENERAL - Review of Systems Review Of Systems: See Below Constitutional: Denies: Fever, Chills, Malaise, Weakness, Fatigue HEENT: Reports: No Symptoms Respiratory: Reports: Shortness of Breath (chronic in nature) Cardiovascular: Reports: Edema. Denies: Chest Pain, Lightheadedness Endocrine: Denies: Fatigue GI/Abdominal: Denies: Abdominal Pain, Nausea, Vomiting : Reports: No Symptoms Musculoskeletal: Reports: No Symptoms Skin: Reports: Wound Neurological: Reports: Other (neuropathy in leg) ED EXAM, GENERAL - Physical Exam Exam: See Below Exam Limited By: No Limitations General Appearance: Alert, WD/WN, No Apparent Distress Respiratory/Chest: Decreased Breath Sounds Cardiovascular: Regular Rate, Rhythm Extremities: Pedal Edema Neurological: Alert, Oriented Skin Exam: Wound/Incision (has 3 cm irregular circular wound to left mahajan. Lateral area deeper with yellowish purulent appearance. No discharge at this time. Surrounding area is devante in appearance. No warmth. ) Course - Vital Signs Last Recorded V/S: Last Vital Signs Temp 99 F 12/21/20 18:28 Pulse 70 12/21/20 18:28 Resp 18 12/21/20 18:28 BP 108/66 12/21/20 18:28 Pulse Ox 94 L 12/21/20 18:28 - Orders/Labs/Meds Meds: Medications Discontinued Medications Generic Name Dose Route Start Last Admin Trade Name Jovanyq PRN Reason Stop Dose Admin Cephalexin 2 packet 12/21/20 18:46 12/21/20 18:50 Take Home: Cephalexin 500 Mg Cap, 4 Cap Pack PO 12/21/20 18:47 2 packet ONETIME ONE Administration Neomycin/Polymyxin/Bacitracin Confirm 12/21/20 18:28 12/21/20 18:50 Bacitracin/Neomycin/Polymyxin B Oint 0.9 Gm U/D Packet Administered 12/21/20 18:29 1 each Dose Administration 1 each .ROUTE .STK-MED ONE - Re-Assessments/Exams Free Text/Narrative Re-Assessment/Exam: 12/21/20 19:00-Wound cleansed with oliverio-clens, unable to express any discharge for culture. Covered with MANNIE and telfa. Departure - Departure Time of Disposition: 18:53 Disposition: Home, Self-Care 01 Condition: Fair Clinical Impression: Wound infection - Discharge Information *PRESCRIPTION DRUG MONITORING PROGRAM REVIEWED*: No *COPY OF PRESCRIPTION DRUG MONITORING REPORT IN PATIENT CHASITY: No Instructions: Wound Infection, [id number] Forms: ED Department Discharge Additional Instructions: 1. Keep wound clean and dry 2. Change bandage daily 3. Apply neosporin or wound care ointment have at home daily 4. Cephalexin 500 mg four times a day for 10 days 5. If note increased redness, swelling, odor or more purulent discharge, may need culture and recheck 6. Call with any questions or concerns. Sepsis Event Note (ED) - Evaluation Sepsis Screening Result: No Definite Risk - Focused Exam Vital Signs: Vital Signs Temp Pulse Resp BP Pulse Ox 12/21/20 18:28 99 F 70 18 108/66 94 L
== END 2020-12-21 19:09 | disposition home or self-care (01) ==
LOC: CC.ED 18:27
DX: T81.40XA Infection following a procedure, unspecified, initial encounter (principal); I48.91 Unspecified atrial fibrillation; E78.00 Pure hypercholesterolemia, unspecified; I11.0 Hypertensive heart disease with heart failure; I50.9 Heart failure, unspecified; E11.40 Type 2 diabetes mellitus with diabetic neuropathy, unspecified; Z79.01 Long term (current) use of anticoagulants; Z79.4 Long term (current) use of insulin; Z79.899 Other long term (current) drug therapy; Z88.8 Allergy status to other drugs, medicaments and biological substances
CPT/HCPCS: 99283; A9270

== ENCOUNTER 2021-05-02 13:48 | Inpatient (IN) | payer BC, MEDICARE ==
[2021-05-02] MEDS ORDERED: Acetaminophen 325 MG Tab PO PRN (14:39)
[2021-05-02] MEDS ORDERED: Temazepam 15 MG Cap PO PRN (14:39)
[2021-05-02] MEDS ORDERED: Sodium Chloride 0.9% 10 ML Syringe FLUSH PRN (14:39)
[2021-05-02 15:20] LABS: CHLORIDE,CL 101 mEq/L (98-106); SODIUM,NA 142 mEq/L (136-145)
[2021-05-02] MEDS ORDERED: Non-Formulary Medication 1 Each (Metolazone [Metolazone] 2.5 MG Tablet) PO PRN (15:45)
[2021-05-02] MEDS ORDERED: Albuterol 8 GM Inhaler INH PRN (15:45)
[2021-05-02] MEDS ORDERED: LORazepam 0.5 MG Tab PO PRN (16:32)
[2021-05-02] MEDS ORDERED: 50% Dextrose in Water 50 ML Syringe IVPUSH PRN (17:02)
[2021-05-02] MEDS ORDERED: Glucagon,Human Recombinant 1 MG Vial IM PRN (17:02)
[2021-05-02] MEDS: Insulin Lispro 100 Units/ML 3 ML Vial SUBCUT SCH ×2 (17:39→20:11)
[2021-05-02] MEDS: Potassium Chloride 10 MEQ Tab.ER PO SCH (17:40)
[2021-05-02] MEDS ORDERED: INSULN SUBCUT SCH (20:00)
[2021-05-02] MEDS ORDERED: LISPRO SUBCUT SCH (20:00)
[2021-05-02] MEDS ORDERED: Non-Formulary Medication 1 Each (Potassium Chloride [Potassium Chloride] 20 MEQ Tablet.Er) PO SCH (20:00)
[2021-05-02] MEDS ORDERED: INSULIN LISPRO PROT SUBCUT SCH (20:00)
[2021-05-02] MEDS: Levofloxacin/Dextrose 5%-Water 500 MG in Premix Bag 1 BAG IV SCH (20:10)
[2021-05-02] MEDS: Apixaban 5 MG Tab PO SCH (20:10)
[2021-05-02] MEDS: Simvastatin 40 MG Tab PO SCH (20:11)
[2021-05-02] MEDS: Pramipexole 0.5 MG Tab PO SCH (20:11)
[2021-05-03] MEDS: Codeine/Promethazine 10-6.25 MG/5 ML Syrup 5 ML UD Cup PO PRN (07:56)
[2021-05-03] MEDS: Bumetanide 1 MG Tab PO SCH (07:56)
[2021-05-03] MEDS: Potassium Chloride 10 MEQ Tab.ER PO SCH ×3 (07:57→17:18)
[2021-05-03] MEDS: Lisinopril 5 MG Tab PO SCH (07:57)
[2021-05-03] MEDS: Metoprolol Succinate 100 MG Tab.ER PO SCH (07:57)
[2021-05-03] MEDS: Apixaban 5 MG Tab PO SCH ×2 (07:57→20:14)
[2021-05-03] MEDS: Tamsulosin 0.4 MG Cap.ER PO SCH (07:58)
[2021-05-03] MEDS ORDERED: INSULIN LISPRO PROT SUBCUT SCH (08:00)
[2021-05-03] MEDS ORDERED: INSULN SUBCUT SCH (08:00)
[2021-05-03] MEDS ORDERED: LISPRO SUBCUT SCH (08:00)
[2021-05-03] MEDS ORDERED: Spironolactone 25 MG Tab PO SCH (08:00)
[2021-05-03] MEDS: Insulin Lispro 100 Units/ML 3 ML Vial SUBCUT SCH ×4 (08:08→20:14)
[2021-05-03] MEDS ORDERED: guaiFENesin/Dextromethorphan 100-10 MG/5 ML Soln 5 ML Cup PO PRN (08:54)
[2021-05-03] MEDS ORDERED: traZODone 50 MG Tab PO PRN (08:55)
--- NOTE | 2021-05-03 08:59 | PCM.PN ---
- General Info Date of Service: 05/03/21 Subjective Update: Ger overall is feeling okay this morning. States he didn't get any sleep last night as we had held his trazodone. He admits he uses the Trazodone and Temazepam together. He had been coughing all night as well. Oxygen saturation has been satisfactory without the need of oxygen. Functional Status: Reports: Tolerating Diet, Ambulating, Urinating - Review of Systems General: Reports: Fatigue. Denies: Fever HEENT: Reports: No Symptoms Pulmonary: Reports: Cough, Sputum Cardiovascular: Reports: No Symptoms Gastrointestinal: Reports: Abdominal Pain (from coughing all night) Genitourinary: Reports: No Symptoms Musculoskeletal: Reports: No Symptoms Skin: Reports: No Symptoms Neurological: Reports: No Symptoms - Patient Data Vitals - Most Recent: Last Vital Signs Temp 98 F 05/03/21 07:58 Pulse 96 05/03/21 07:58 Resp 18 05/03/21 07:58 BP 115/73 05/03/21 07:58 Pulse Ox 95 05/03/21 07:58 Weight - Most Recent: 314 lb Lab Results Last 24 Hours: Laboratory Results - last 24 hr 05/02/21 05/02/21 05/02/21 Range/Units 13:55 14:39 14:39 WBC 9.2 (4.0-11.0) 10^3/uL RBC 5.34 (4.50-6.00) x10^6/uL Hgb 14.8 (14.0-18.0) g/dL Hct 46.1 (42.0-52.0) % MCV 86.3 (83.0-97.0) fL MCH 27.7 (27.0-32.0) pg MCHC 32.1 (32.0-36.0) g/dL RDW Coeff of Teja 15.4 H (11.0-15.0) % Plt Count 170 (150-400) 10^3/uL Immature Gran % (Auto) 0.1 (0.0-4.9) % Neut % (Auto) 81.4 H (41-71) % Lymph % (Auto) 11.5 L (24-44) % [place] % (Auto) 5.5 (0-10) % Eos % (Auto) 1.3 (0-6) % Baso % (Auto) 0.2 (0-1) % Neut # (Auto) 7.45 (1.80-8.00) x10^3/uL Lymph # (Auto) 1.05 (0.60-5.00) 10^3/uL [place] # (Auto) 0.50 (0.00-1.50) 10^3/uL Eos # (Auto) 0.12 (0.00-1.50) 10^3/uL Baso # (Auto) 0.02 (0.00-0.50) 10^3/uL Immature Gran # (Auto) 0.01 (0.00-0.49) 10^3/uL Sodium 142 (136-145) mEq/L Potassium 4.0 (3.5-5.0) mEq/L Chloride 101 (98-106) mEq/L Carbon Dioxide 33 H (21-32) mmol/L BUN 29 H (7-18) mg/dL Creatinine 1.7 H (0.7-1.3) mg/dL Est Cr Clr Drug Dosing TNP Estimated GFR (MDRD) 41 L (>=60) mL/min Glucose 294 H D (75-99) mg/dL POC Glucose (75-105) mg/dL Lactic Acid (0.4-2.0) mmol/L Calcium 9.2 (8.4-10.1) mg/dL C-Reactive Protein 1.4 H (0.2-0.8) mg/dL NT-Pro-B Natriuret Pep 4811 H (0-1000) pg/mL SARS CoV-2 RNA Rapid DOROTHY Negative (NEGATIVE) 05/02/21 05/02/21 05/02/21 Range/Units 14:39 16:46 20:07 WBC (4.0-11.0) 10^3/uL RBC (4.50-6.00) x10^6/uL Hgb (14.0-18.0) g/dL Hct (42.0-52.0) % MCV (83.0-97.0) fL MCH (27.0-32.0) pg MCHC (32.0-36.0) g/dL RDW Coeff of Teja (11.0-15.0) % Plt Count (150-400) 10^3/uL Immature Gran % (Auto) (0.0-4.9) % Neut % (Auto) (41-71) % Lymph % (Auto) (24-44) % [place] % (Auto) (0-10) % Eos % (Auto) (0-6) % Baso % (Auto) (0-1) % Neut # (Auto) (1.80-8.00) x10^3/uL Lymph # (Auto) (0.60-5.00) 10^3/uL [place] # (Auto) (0.00-1.50) 10^3/uL Eos # (Auto) (0.00-1.50) 10^3/uL Baso # (Auto) (0.00-0.50) 10^3/uL Immature Gran # (Auto) (0.00-0.49) 10^3/uL Sodium (136-145) mEq/L Potassium (3.5-5.0) mEq/L Chloride (98-106) mEq/L Carbon Dioxide (21-32) mmol/L BUN (7-18) mg/dL Creatinine (0.7-1.3) mg/dL Est Cr Clr Drug Dosing Estimated GFR (MDRD) (>=60) mL/min Glucose (75-99) mg/dL POC Glucose 266 H 378 H (75-105) mg/dL Lactic Acid 1.2 (0.4-2.0) mmol/L Calcium (8.4-10.1) mg/dL C-Reactive Protein (0.2-0.8) mg/dL NT-Pro-B Natriuret Pep (0-1000) pg/mL SARS CoV-2 RNA Rapid DOROTHY (NEGATIVE) 05/03/21 05/03/21 Range/Units 05:11 05:11 WBC 7.4 (4.0-11.0) 10^3/uL RBC 5.05 (4.50-6.00) x10^6/uL Hgb 13.9 L (14.0-18.0) g/dL Hct 43.5 (42.0-52.0) % MCV 86.1 (83.0-97.0) fL MCH 27.5 (27.0-32.0) pg MCHC 32.0 (32.0-36.0) g/dL RDW Coeff of Teja 15.7 H (11.0-15.0) % Plt Count 155 (150-400) 10^3/uL Immature Gran % (Auto) 0.1 (0.0-4.9) % Neut % (Auto) 74.8 H (41-71) % Lymph % (Auto) 16.1 L (24-44) % [place] % (Auto) 6.5 (0-10) % Eos % (Auto) 2.2 (0-6) % Baso % (Auto) 0.3 (0-1) % Neut # (Auto) 5.51 (1.80-8.00) x10^3/uL Lymph # (Auto) 1.19 (0.60-5.00) 10^3/uL [place] # (Auto) 0.48 (0.00-1.50) 10^3/uL Eos # (Auto) 0.16 (0.00-1.50) 10^3/uL Baso # (Auto) 0.02 (0.00-0.50) 10^3/uL Immature Gran # (Auto) 0.01 (0.00-0.49) 10^3/uL Sodium 141 (136-145) mEq/L Potassium 4.1 (3.5-5.0) mEq/L Chloride 101 (98-106) mEq/L Carbon Dioxide 33 H (21-32) mmol/L BUN 27 H (7-18) mg/dL Creatinine 1.6 H (0.7-1.3) mg/dL Est Cr Clr Drug Dosing 56.51 Estimated GFR (MDRD) 44 L (>=60) mL/min Glucose 245 H (75-99) mg/dL POC Glucose (75-105) mg/dL Lactic Acid (0.4-2.0) mmol/L Calcium 9.0 (8.4-10.1) mg/dL C-Reactive Protein 1.9 H (0.2-0.8) mg/dL NT-Pro-B Natriuret Pep (0-1000) pg/mL SARS CoV-2 RNA Rapid DOROTHY (NEGATIVE) Elijah Results Last 24 Hours: Microbiology 05/02/21 14:39 Influenza Type A Antigen Screen - Final Nasopharyngeal Swab NEGATIVE INFLUENZA A VIRUS AG REFERENCE RANGE: NEGATIVE Influenza Type B Antigen Screen - Final NEGATIVE INFLUENZA B VIRUS AG REFERENCE RANGE: NEGATIVE Med Orders - Current: Current Medications Acetaminophen (Acetaminophen 325 Mg Tab) 650 mg PO Q4H PRN PRN Reason: Pain (Mild 1-3)/fever Albuterol (Albuterol 8 Gm Inhaler) 0 gm INH Q6H PRN PRN Reason: Dyspnea Apixaban (Apixaban 5 Mg Tab) 5 mg PO BID [facility] Last Admin: 05/03/21 07:57 Dose: 5 mg Documented by: Benzonatate (Benzonatate 100 Mg Cap) 200 mg PO TID [facility] Bumetanide (Bumetanide 1 Mg Tab) 4 mg PO QAM [facility] Last Admin: 05/03/21 07:56 Dose: 4 mg Documented by: Bumetanide (Bumetanide 1 Mg Tab) 2 mg PO DAILY@1600 [facility] Dextrose/Water (50% Dextrose In Water 50 Ml Syringe) 50 ml IVPUSH ASDIRECTED PRN PRN Reason: Hypoglycemia Glucagon (Glucagon,Human Recombinant 1 Mg Vial) 1 mg IM ASDIRECTED PRN PRN Reason: Hypoglycemia Levofloxacin/Dextrose 500 mg/ (Premix) 100 mls @ 100 mls/hr IV Q24H [facility] Last Admin: 05/02/21 20:10 Dose: 100 mls/hr Documented by: Insulin Human Lispro (Insulin Lispro 100 Units/Ml 3 Ml Vial) 0 unit SUBCUT WITHMEALSANDBED [facility]; Protocol Last Admin: 05/03/21 08:08 Dose: 245 units Documented by: Lisinopril (Lisinopril 5 Mg Tab) 5 mg PO DAILY [facility] Last Admin: 05/03/21 07:57 Dose: 5 mg Documented by: Lorazepam (Lorazepam 0.5 Mg Tab) 0.5 mg PO BID PRN PRN Reason: Anxiety Metoprolol Succinate (Metoprolol Succinate 100 Mg Tab.Er) 100 mg PO DAILY [facility] Last Admin: 05/03/21 07:57 Dose: 100 mg Documented by: Non-Formulary Medication (Metolazone [Metolazone]) 2.5 mg PO TH PRN PRN Reason: Edema Potassium Chloride (Potassium Chloride 10 Meq Tab.Er) 40 meq PO TIDMEALS [facility] Last Admin: 05/03/21 07:57 Dose: 40 meq Documented by: Pramipexole Dihydrochloride (Pramipexole 0.5 Mg Tab) 3 mg PO BEDTIME [facility] Last Admin: 05/02/21 20:11 Dose: 3 mg Documented by: Promethazine HCl/Codeine (Codeine/Promethazine 10-6.25 Mg/5 Ml Syrup 5 Ml Ud Cup) 10 ml PO Q6H PRN PRN Reason: Cough Last Admin: 05/03/21 07:56 Dose: 10 ml Documented by: Simvastatin (Simvastatin 40 Mg Tab) 40 mg PO BEDTIME [facility] Last Admin: 05/02/21 20:11 Dose: 40 mg Documented by: Sodium Chloride (Sodium Chloride 0.9% 10 Ml Syringe) 10 ml FLUSH ASDIRECTED PRN PRN Reason: Keep Vein Open Tamsulosin HCl (Tamsulosin 0.4 Mg Cap.Er) 0.4 mg PO DAILY [facility] Last Admin: 05/03/21 07:58 Dose: 0.4 mg Documented by: Temazepam (Temazepam 15 Mg Cap) 15 mg PO BEDTIME PRN PRN Reason: Sleep Last Admin: 05/02/21 23:52 Dose: 15 mg Documented by: Discontinued Medications Non-Formulary Medication (Bumetanide [Bumetanide]) 2 mg PO QPM [facility] Non-Formulary Medication (Insulin Lispro Prot/Lispro) 30 - 50 units SUBCUT QPM [facility] Non-Formulary Medication (Insulin Lispro Prot/Lispro) 50 - 60 units SUBCUT QAM [facility] Non-Formulary Medication (Potassium Chloride [Potassium Chloride]) 60 meq PO QPM [facility] - Exam General: Alert, Oriented, Cooperative, No Acute Distress Neck: Supple Lungs: Decreased Breath Sounds, Wheezing Cardiovascular: Regular Rate, Regular Rhythm GI/Abdominal Exam: Normal Bowel Sounds, Soft Extremities: Pedal Edema Skin: Warm, Dry, Intact Neurological: No New Focal Deficit Psy/Mental Status: Alert, Normal Affect, Normal Mood - Patient Data Lab Results Last 24 hrs: Laboratory Results - last 24 hr 05/02/21 05/02/21 05/02/21 Range/Units 13:55 14:39 14:39 WBC 9.2 (4.0-11.0) 10^3/uL RBC 5.34 (4.50-6.00) x10^6/uL Hgb 14.8 (14.0-18.0) g/dL Hct 46.1 (42.0-52.0) % MCV 86.3 (83.0-97.0) fL MCH 27.7 (27.0-32.0) pg MCHC 32.1 (32.0-36.0) g/dL RDW Coeff of Teja 15.4 H (11.0-15.0) % Plt Count 170 (150-400) 10^3/uL Immature Gran % (Auto) 0.1 (0.0-4.9) % Neut % (Auto) 81.4 H (41-71) % Lymph % (Auto) 11.5 L (24-44) % [place] % (Auto) 5.5 (0-10) % Eos % (Auto) 1.3 (0-6) % Baso % (Auto) 0.2 (0-1) % Neut # (Auto) 7.45 (1.80-8.00) x10^3/uL Lymph # (Auto) 1.05 (0.60-5.00) 10^3/uL [place] # (Auto) 0.50 (0.00-1.50) 10^3/uL Eos # (Auto) 0.12 (0.00-1.50) 10^3/uL Baso # (Auto) 0.02 (0.00-0.50) 10^3/uL Immature Gran # (Auto) 0.01 (0.00-0.49) 10^3/uL Sodium 142 (136-145) mEq/L Potassium 4.0 (3.5-5.0) mEq/L Chloride 101 (98-106) mEq/L Carbon Dioxide 33 H (21-32) mmol/L BUN 29 H (7-18) mg/dL Creatinine 1.7 H (0.7-1.3) mg/dL Est Cr Clr Drug Dosing TNP Estimated GFR (MDRD) 41 L (>=60) mL/min Glucose 294 H D (75-99) mg/dL POC Glucose (75-105) mg/dL Lactic Acid (0.4-2.0) mmol/L Calcium 9.2 (8.4-10.1) mg/dL C-Reactive Protein 1.4 H (0.2-0.8) mg/dL NT-Pro-B Natriuret Pep 4811 H (0-1000) pg/mL SARS CoV-2 RNA Rapid DOROTHY Negative (NEGATIVE) 05/02/21 05/02/21 05/02/21 Range/Units 14:39 16:46 20:07 WBC (4.0-11.0) 10^3/uL RBC (4.50-6.00) x10^6/uL Hgb (14.0-18.0) g/dL Hct (42.0-52.0) % MCV (83.0-97.0) fL MCH (27.0-32.0) pg MCHC (32.0-36.0) g/dL RDW Coeff of Teja (11.0-15.0) % Plt Count (150-400) 10^3/uL Immature Gran % (Auto) (0.0-4.9) % Neut % (Auto) (41-71) % Lymph % (Auto) (24-44) % [place] % (Auto) (0-10) % Eos % (Auto) (0-6) % Baso % (Auto) (0-1) % Neut # (Auto) (1.80-8.00) x10^3/uL Lymph # (Auto) (0.60-5.00) 10^3/uL [place] # (Auto) (0.00-1.50) 10^3/uL Eos # (Auto) (0.00-1.50) 10^3/uL Baso # (Auto) (0.00-0.50) 10^3/uL Immature Gran # (Auto) (0.00-0.49) 10^3/uL Sodium (136-145) mEq/L Potassium (3.5-5.0) mEq/L Chloride (98-106) mEq/L Carbon Dioxide (21-32) mmol/L BUN (7-18) mg/dL Creatinine (0.7-1.3) mg/dL Est Cr Clr Drug Dosing Estimated GFR (MDRD) (>=60) mL/min Glucose (75-99) mg/dL POC Glucose 266 H 378 H (75-105) mg/dL Lactic Acid 1.2 (0.4-2.0) mmol/L Calcium (8.4-10.1) mg/dL C-Reactive Protein (0.2-0.8) mg/dL NT-Pro-B Natriuret Pep (0-1000) pg/mL SARS CoV-2 RNA Rapid DOROTHY (NEGATIVE) 05/03/21 05/03/21 Range/Units 05:11 05:11 WBC 7.4 (4.0-11.0) 10^3/uL RBC 5.05 (4.50-6.00) x10^6/uL Hgb 13.9 L (14.0-18.0) g/dL Hct 43.5 (42.0-52.0) % MCV 86.1 (83.0-97.0) fL MCH 27.5 (27.0-32.0) pg MCHC 32.0 (32.0-36.0) g/dL RDW Coeff of Teja 15.7 H (11.0-15.0) % Plt Count 155 (150-400) 10^3/uL Immature Gran % (Auto) 0.1 (0.0-4.9) % Neut % (Auto) 74.8 H (41-71) % Lymph % (Auto) 16.1 L (24-44) % [place] % (Auto) 6.5 (0-10) % Eos % (Auto) 2.2 (0-6) % Baso % (Auto) 0.3 (0-1) % Neut # (Auto) 5.51 (1.80-8.00) x10^3/uL Lymph # (Auto) 1.19 (0.60-5.00) 10^3/uL [place] # (Auto) 0.48 (0.00-1.50) 10^3/uL Eos # (Auto) 0.16 (0.00-1.50) 10^3/uL Baso # (Auto) 0.02 (0.00-0.50) 10^3/uL Immature Gran # (Auto) 0.01 (0.00-0.49) 10^3/uL Sodium 141 (136-145) mEq/L Potassium 4.1 (3.5-5.0) mEq/L Chloride 101 (98-106) mEq/L Carbon Dioxide 33 H (21-32) mmol/L BUN 27 H (7-18) mg/dL Creatinine 1.6 H (0.7-1.3) mg/dL Est Cr Clr Drug Dosing 56.51 Estimated GFR (MDRD) 44 L (>=60) mL/min Glucose 245 H (75-99) mg/dL POC Glucose (75-105) mg/dL Lactic Acid (0.4-2.0) mmol/L Calcium 9.0 (8.4-10.1) mg/dL C-Reactive Protein 1.9 H (0.2-0.8) mg/dL NT-Pro-B Natriuret Pep (0-1000) pg/mL SARS CoV-2 RNA Rapid DOROTHY (NEGATIVE) Result Diagrams: 05/03/21 05:11 05/03/21 05:11 Elijah Results Last 24 hrs: Microbiology 05/02/21 14:39 Influenza Type A Antigen Screen - Final Nasopharyngeal Swab NEGATIVE INFLUENZA A VIRUS AG REFERENCE RANGE: NEGATIVE Influenza Type B Antigen Screen - Final NEGATIVE INFLUENZA B VIRUS AG REFERENCE RANGE: NEGATIVE Sepsis Event Note - Evaluation Sepsis Screening Result: No Definite Risk - Focused Exam Vital Signs: Vital Signs Temp Pulse Pulse Resp BP BP Pulse Ox 05/03/21 07:58 98 F 96 18 115/73 95 05/03/21 07:57 82 115/73 05/03/21 03:24 97.5 F 66 16 124/80 94 L 05/03/21 00:00 97.9 F 81 16 112/63 95 - Problem List & Annotations (1) Bronchopneumonia SNOMED Code(s): 002590553 Code(s): J18.0 - BRONCHOPNEUMONIA, UNSPECIFIED ORGANISM Status: Acute Current Visit: Yes - Problem List Review Problem List Initiated/Reviewed/Updated: Yes - My Orders Last 24 Hours: My Active Orders 05/02/21 14:39 Patient Status [ADT] Routine Blood Glucose Check, Bedside [RC] 0730,1130,1630,2030 Height and Weight [RC] 0600 Oxygen Therapy [RC] .PRN Up ad Fanny [RC] .PRN Vital Signs [RC] 0000,0400,0800,1200,1600,2000 Chest 2V [CR] Routine CULTURE SPUTUM + SMEAR [RM] Stat Acetaminophen [TylenoL] 650 mg PO Q4H PRN Codeine/Promethazine [Phenergan with Codeine] 10 ml PO Q6H PRN Sodium Chloride 0.9% [Saline Flush] 10 ml FLUSH ASDIRECTED PRN Temazepam [Restoril] 15 mg PO BEDTIME PRN Saline Lock Insert [OM.PC] Routine Resuscitation Status Routine 05/02/21 14:40 Cardiac Monitoring [RC] 0800,2000 Pulse Oximetry [RC] .PRN 05/02/21 14:42 Isolation [COMM] Routine 05/02/21 15:45 Albuterol [Ventolin HFA] 0 gm INH Q6H PRN metOLazone [Metolazone] 2.5 mg PO TH PRN 05/02/21 15:47 RT Post Treatment Assessment [RC] Click to Edit RT Pre-Treatment Assessment [RC] Click to Edit 05/02/21 16:32 LORazepam [Ativan] 0.5 mg PO BID PRN 05/02/21 17:02 Dextrose 50% in Water 50 ml IVPUSH ASDIRECTED PRN Glucagon,Human Recombinant [GlucaGen] 1 mg IM ASDIRECTED PRN 05/02/21 17:30 Insulin Lispro [HumaLOG] See Protocol SUBCUT WITHMEALSANDBED Potassium Chloride [Klor-Con 10] 40 meq PO TIDMEALS 05/02/21 Dinner Consistent Carbohydrate Diet [DIET] 05/02/21 20:00 Apixaban [Eliquis] 5 mg PO BID Levofloxacin/Dextrose 5%-Water [Levaquin in D5W 500 MG/100 ML] 500 mg Premix Bag 1 bag IV Q24H Pramipexole [Mirapex] 3 mg PO BEDTIME Simvastatin [Zocor] 40 mg PO BEDTIME 05/03/21 08:00 Bumetanide [Bumex] 4 mg PO QAM Metoprolol Succinate [Toprol XL] 100 mg PO DAILY Tamsulosin [Flomax] 0.4 mg PO DAILY lisinopriL [Prinivil] 5 mg PO DAILY 05/03/21 14:00 Benzonatate [Tessalon Perles] 200 mg PO TID 05/03/21 16:00 Bumetanide [Bumex] 2 mg PO DAILY@1600 05/04/21 05:11 BASIC METABOLIC PANEL,BMP [CHEM] AM CBC WITH AUTO DIFF [HEME] AM CRP [C-REACTIVE PROTEIN] [CHEM] AM - Plan Plan:: Ger is doing well this morning. Will order Tessalon Perles and Mucinex for cough. Labs overall are stable. If patient continues to show improvement, may plan for discharge in the am. Patient will receive IV antibiotics today. Repeat labs in am.
[2021-05-03] MEDS ORDERED: Benzonatate 100 MG Cap PO ONE (09:11)
[2021-05-03] MEDS: Benzonatate 100 MG Cap PO SCH ×2 (13:56→20:13)
[2021-05-03] MEDS ORDERED: Bumetanide 1 MG Tab PO SCH (16:00)
[2021-05-03] MEDS ORDERED: OZEMPIC SQ ONE (20:00)
[2021-05-03] MEDS: Pramipexole 0.5 MG Tab PO SCH (20:14)
[2021-05-03] MEDS: Simvastatin 40 MG Tab PO SCH (20:14)
[2021-05-03] MEDS: Levofloxacin/Dextrose 5%-Water 500 MG in Premix Bag 1 BAG IV SCH (20:18)
[2021-05-03 23:04] VITALS: PULSE 84
[2021-05-04] MEDS: Codeine/Promethazine 10-6.25 MG/5 ML Syrup 5 ML UD Cup PO PRN (02:17)
[2021-05-04] MEDS ORDERED: Polyethylene Glycol 3350 Powder 17 GM Packet PO ONE (07:45)
[2021-05-04] MEDS: Benzonatate 100 MG Cap PO SCH (07:46)
[2021-05-04] MEDS: Apixaban 5 MG Tab PO SCH (07:47)
[2021-05-04] MEDS: Tamsulosin 0.4 MG Cap.ER PO SCH (07:47)
[2021-05-04] MEDS: Metoprolol Succinate 100 MG Tab.ER PO SCH (07:47)
[2021-05-04] MEDS: Potassium Chloride 10 MEQ Tab.ER PO SCH (07:47)
[2021-05-04] MEDS: Lisinopril 5 MG Tab PO SCH (07:48)
[2021-05-04] MEDS: Bumetanide 1 MG Tab PO SCH (07:48)
[2021-05-04 07:49] VITALS: BP 101/71
[2021-05-04] MEDS: Insulin Lispro 100 Units/ML 3 ML Vial SUBCUT SCH (08:01)
--- NOTE | 2021-05-04 09:44 | PCM.DCSUM1 ---
Discharge Summary - Hospital Course Free Text/Narrative:: Pt was admitted for SOB and hypoxia and cough. He was given Levaquin during admission. Labs are all stable and improved during admission. He states that he feels better today than he did on admission. He is able to ambulate longer without becoming SOB. cough is nonproductive. Diagnosis: Stroke: No Modified Ridgeway Scale: No Symptoms at All Modified [place]way Scale Score: 0 - Discharge Data Discharge Date: 05/04/21 Discharge Disposition: Home, Self-Care 01 Condition: Good - Referral to Home Health Primary Care Physician: Casey Cummings PA-C - Discharge Diagnosis/Problem(s) (1) Bronchopneumonia SNOMED Code(s): 510048375 ICD Code: J18.0 - BRONCHOPNEUMONIA, UNSPECIFIED ORGANISM Status: Acute Priority: High - Patient Summary/Data Hospital Course: pt admitted and was given IV levaquin and fluids. He had daily labs that have improved while here. He is able to ambulate better without SOB. He is afebrile. - Patient Instructions Diet: Regular Diet as Tolerated Showering/Bathing: May Shower - Discharge Plan *PRESCRIPTION DRUG MONITORING PROGRAM REVIEWED*: Not Applicable *COPY OF PRESCRIPTION DRUG MONITORING REPORT IN PATIENT CHASITY: Not Applicable Prescriptions/Med Rec: Levofloxacin [Levaquin] 500 mg PO DAILY #7 tablet Home Medications: Home Meds Pramipexole Di-HCl [Mirapex ER] 3 mg PO BEDTIME 12/22/13 [History] Simvastatin [Zocor] 40 mg PO DAILY 12/22/13 [History] Albuterol Sulfate [Proair Hfa] 2 puff INH Q6H PRN 11/24/15 [History] Bumetanide [Bumex] 4 mg PO QAM 11/10/17 [History] Potassium Chloride 40 meq PO TID 11/10/17 [History] Apixaban [Eliquis] 5 mg PO BID 08/08/18 [History] Bumetanide 2 mg PO QPM 08/30/19 [History] LORazepam 0.5 mg PO BID PRN 08/30/19 [History] metOLazone [Metolazone] 2.5 mg PO TH PRN 08/30/19 [History] Insulin Lispro Protamin/Lispro [Humalog Mix 75-25 Kwikpen] 30 - 50 units SUBCUT QPM 09/27/19 [History] Insulin Lispro Protamin/Lispro [Humalog Mix 75-25 Kwikpen] 50 - 60 units SUBCUT QAM 09/27/19 [History] Temazepam [Restoril] 15 mg PO BEDTIME PRN #30 cap 09/28/19 [Rx] Metoprolol Succinate 50 mg PO DAILY 05/17/20 [History] Tamsulosin HCl 0.4 mg PO DAILY 05/17/20 [History] traZODone HCl [Trazodone HCl] 50 mg PO BEDTIME PRN 05/17/20 [History] Balsam [place] Oil [Venelex Ointment] 1 applic TOP ASDIRECTED PRN 05/02/21 [History] LORazepam [Ativan] 0.5 mg PO BID PRN 05/02/21 [History] Melatonin 3 mg PO ASDIRECTED PRN 05/02/21 [History] lisinopriL [Lisinopril] 5 mg PO DAILY 05/02/21 [History] Dextromethorphan/guaiFENesin [Robitussin DM] 10 ml PO Q4H PRN cup 05/04/21 [Rx] Levofloxacin [Levaquin] 500 mg PO DAILY #7 tablet 05/04/21 [Rx] Oxygen Therapy Mode: Room Air Referrals: Casey Cummings PA-C [Primary Care Provider] - - Discharge Summary/Plan Comment DC Time >30 min.: No Total # of Minutes for Discharge Time: 20 - General Info Date of Service: 05/04/21 Functional Status: Reports: Pain Controlled - Review of Systems General: Reports: No Symptoms HEENT: Reports: No Symptoms Pulmonary: Reports: Cough (dry hacky) Cardiovascular: Reports: No Symptoms Gastrointestinal: Reports: Constipation Genitourinary: Reports: No Symptoms Skin: Reports: No Symptoms Neurological: Reports: No Symptoms - Patient Data Vitals - Most Recent: Last Vital Signs Temp 97.5 F 05/04/21 08:00 Pulse 84 05/04/21 08:00 Resp 18 05/04/21 08:00 BP 101/71 05/04/21 08:00 Pulse Ox 94 L 05/04/21 08:00 Weight - Most Recent: 319 lb 3.2 oz Lab Results - Last 24 hrs: Laboratory Results - last 24 hr 05/03/21 05/03/21 05/03/21 Range/Units 11:41 17:14 20:02 WBC (4.0-11.0) 10^3/uL RBC (4.50-6.00) x10^6/uL Hgb (14.0-18.0) g/dL Hct (42.0-52.0) % MCV (83.0-97.0) fL MCH (27.0-32.0) pg MCHC (32.0-36.0) g/dL RDW Coeff of Teja (11.0-15.0) % Plt Count (150-400) 10^3/uL Immature Gran % (Auto) (0.0-4.9) % Neut % (Auto) (41-71) % Lymph % (Auto) (24-44) % [place] % (Auto) (0-10) % Eos % (Auto) (0-6) % Baso % (Auto) (0-1) % Neut # (Auto) (1.80-8.00) x10^3/uL Lymph # (Auto) (0.60-5.00) 10^3/uL [place] # (Auto) (0.00-1.50) 10^3/uL Eos # (Auto) (0.00-1.50) 10^3/uL Baso # (Auto) (0.00-0.50) 10^3/uL Immature Gran # (Auto) (0.00-0.49) 10^3/uL Sodium (136-145) mEq/L Potassium (3.5-5.0) mEq/L Chloride (98-106) mEq/L Carbon Dioxide (21-32) mmol/L BUN (7-18) mg/dL Creatinine (0.7-1.3) mg/dL Est Cr Clr Drug Dosing mL/min Estimated GFR (MDRD) (>=60) mL/min Glucose (75-99) mg/dL POC Glucose 370 H 360 H 417 H* (75-105) mg/dL Calcium (8.4-10.1) mg/dL C-Reactive Protein (0.2-0.8) mg/dL 05/04/21 05/04/21 Range/Units 05:11 05:11 WBC 6.4 (4.0-11.0) 10^3/uL RBC 5.11 (4.50-6.00) x10^6/uL Hgb 14.1 (14.0-18.0) g/dL Hct 44.4 (42.0-52.0) % MCV 86.9 (83.0-97.0) fL MCH 27.6 (27.0-32.0) pg MCHC 31.8 L (32.0-36.0) g/dL RDW Coeff of Teja 15.4 H (11.0-15.0) % Plt Count 149 L (150-400) 10^3/uL Immature Gran % (Auto) 0.3 (0.0-4.9) % Neut % (Auto) 69.9 (41-71) % Lymph % (Auto) 19.1 L (24-44) % [place] % (Auto) 8.0 (0-10) % Eos % (Auto) 2.5 (0-6) % Baso % (Auto) 0.2 (0-1) % Neut # (Auto) 4.47 (1.80-8.00) x10^3/uL Lymph # (Auto) 1.22 (0.60-5.00) 10^3/uL [place] # (Auto) 0.51 (0.00-1.50) 10^3/uL Eos # (Auto) 0.16 (0.00-1.50) 10^3/uL Baso # (Auto) 0.01 (0.00-0.50) 10^3/uL Immature Gran # (Auto) 0.02 (0.00-0.49) 10^3/uL Sodium 142 (136-145) mEq/L Potassium 4.2 (3.5-5.0) mEq/L Chloride 102 (98-106) mEq/L Carbon Dioxide 33 H (21-32) mmol/L BUN 33 H (7-18) mg/dL Creatinine 1.8 H (0.7-1.3) mg/dL Est Cr Clr Drug Dosing 50.23 mL/min Estimated GFR (MDRD) 38 L (>=60) mL/min Glucose 267 H (75-99) mg/dL POC Glucose (75-105) mg/dL Calcium 8.6 (8.4-10.1) mg/dL C-Reactive Protein 1.8 H (0.2-0.8) mg/dL Med Orders - Current: Current Medications Acetaminophen (Acetaminophen 325 Mg Tab) 650 mg PO Q4H PRN PRN Reason: Pain (Mild 1-3)/fever Albuterol (Albuterol 8 Gm Inhaler) 0 gm INH Q6H PRN PRN Reason: Dyspnea Apixaban (Apixaban 5 Mg Tab) 5 mg PO BID [facility] Last Admin: 05/04/21 07:47 Dose: 5 mg Documented by: Benzonatate (Benzonatate 100 Mg Cap) 200 mg PO TID [facility] Last Admin: 05/04/21 07:46 Dose: 200 mg Documented by: Bumetanide (Bumetanide 1 Mg Tab) 4 mg PO QAM [facility] Last Admin: 05/04/21 07:48 Dose: 4 mg Documented by: Bumetanide (Bumetanide 1 Mg Tab) 2 mg PO DAILY@1600 [facility] Last Admin: 05/03/21 15:44 Dose: 2 mg Documented by: Dextrose/Water (50% Dextrose In Water 50 Ml Syringe) 50 ml IVPUSH ASDIRECTED PRN PRN Reason: Hypoglycemia Glucagon (Glucagon,Human Recombinant 1 Mg Vial) 1 mg IM ASDIRECTED PRN PRN Reason: Hypoglycemia Guaifenesin/Phenylephrine HCl (Guaifenesin/Dextromethorphan 100-10 Mg/5 Ml Soln 5 Ml Cup) 10 ml PO Q4H PRN PRN Reason: Cough Levofloxacin/Dextrose 500 mg/ (Premix) 100 mls @ 100 mls/hr IV Q24H [facility] Last Admin: 05/03/21 20:18 Dose: 100 mls/hr Documented by: Insulin Human Lispro (Insulin Lispro 100 Units/Ml 3 Ml Vial) 0 unit SUBCUT WITHMEALSANDBED [facility]; Protocol Last Admin: 05/04/21 08:01 Dose: 9 units Documented by: Lisinopril (Lisinopril 5 Mg Tab) 5 mg PO DAILY [facility] Last Admin: 05/04/21 07:48 Dose: 5 mg Documented by: Lorazepam (Lorazepam 0.5 Mg Tab) 0.5 mg PO BID PRN PRN Reason: Anxiety Metoprolol Succinate (Metoprolol Succinate 100 Mg Tab.Er) 100 mg PO DAILY [facility] Last Admin: 05/04/21 07:47 Dose: 100 mg Documented by: Non-Formulary Medication (Metolazone [Metolazone]) 2.5 mg PO TH PRN PRN Reason: Edema Non-Formulary (Ozempic) 0 each SQ ASDIRECTED ONE Stop: 05/03/21 20:01 Potassium Chloride (Potassium Chloride 10 Meq Tab.Er) 40 meq PO TIDMEALS [facility] Last Admin: 05/04/21 07:47 Dose: 40 meq Documented by: Pramipexole Dihydrochloride (Pramipexole 0.5 Mg Tab) 3 mg PO BEDTIME [facility] Last Admin: 05/03/21 20:14 Dose: 3 mg Documented by: Promethazine HCl/Codeine (Codeine/Promethazine 10-6.25 Mg/5 Ml Syrup 5 Ml Ud Cup) 10 ml PO Q6H PRN PRN Reason: Cough Last Admin: 05/04/21 02:17 Dose: 10 ml Documented by: Simvastatin (Simvastatin 40 Mg Tab) 40 mg PO BEDTIME [facility] Last Admin: 05/03/21 20:14 Dose: 40 mg Documented by: Sodium Chloride (Sodium Chloride 0.9% 10 Ml Syringe) 10 ml FLUSH ASDIRECTED PRN PRN Reason: Keep Vein Open Tamsulosin HCl (Tamsulosin 0.4 Mg Cap.Er) 0.4 mg PO DAILY [facility] Last Admin: 05/04/21 07:47 Dose: 0.4 mg Documented by: Temazepam (Temazepam 15 Mg Cap) 15 mg PO BEDTIME PRN PRN Reason: Sleep Last Admin: 05/02/21 23:52 Dose: 15 mg Documented by: Trazodone HCl (Trazodone 50 Mg Tab) 50 mg PO BEDTIME PRN PRN Reason: Insomnia Last Admin: 05/03/21 20:12 Dose: 50 mg Documented by: Discontinued Medications Benzonatate (Benzonatate 100 Mg Cap) 200 mg PO ONETIME ONE Stop: 05/03/21 09:12 Last Admin: 05/03/21 09:19 Dose: 200 mg Documented by: Non-Formulary Medication (Bumetanide [Bumetanide]) 2 mg PO QPM [facility] Non-Formulary Medication (Insulin Lispro Prot/Lispro) 30 - 50 units SUBCUT QPM [facility] Non-Formulary Medication (Insulin Lispro Prot/Lispro) 50 - 60 units SUBCUT QAM [facility] Non-Formulary Medication (Potassium Chloride [Potassium Chloride]) 60 meq PO QPM [facility] Polyethylene Glycol (Polyethylene Glycol 3350 Powder 17 Gm Packet) 17 gm PO ONETIME ONE Stop: 05/04/21 07:46 Last Admin: 05/04/21 08:01 Dose: 17 gm Documented by: - Exam Quality Assessment: Denies: Supplemental Oxygen General: Reports: Alert, Oriented Neck: Reports: Supple Lungs: Reports: Wheezing (occasional expiratory wheeze.) Cardiovascular: Reports: Regular Rate GI/Abdominal Exam: Normal Bowel Sounds, Soft, Non-Tender Skin: Reports: Warm, Dry, Intact Wound/Incisions: Reports: Healing Well (left lower mahajan.) Psy/Mental Status: Reports: Alert, Normal Affect
[2021-05-04] MEDS ORDERED: Levofloxacin 500 MG Tab PO ONE (09:48)
== END 2021-05-04 10:08 | disposition home or self-care (01) | DRG 139 ==
LOC: CC.FCMC 13:48 → CC.MS 13:48 → UNDOADMIN 14:24 → CC.MS 14:24
PROVIDERS: ADMIT Physician Assistant Medical; ATTEND Family Medicine
DX: J18.0 Bronchopneumonia, unspecified organism (principal); N18.9 Chronic kidney disease, unspecified; M54.5 Low back pain; G89.29 Other chronic pain; F41.8 Other specified anxiety disorders; I13.0 Hypertensive heart and chronic kidney disease with heart failure and stage 1 through stage 4 chronic kidney disease, or unspecified chronic kidney disease; I50.9 Heart failure, unspecified; E11.22 Type 2 diabetes mellitus with diabetic chronic kidney disease; E78.5 Hyperlipidemia, unspecified; Z20.822 Contact with and (suspected) exposure to COVID-19; Z79.01 Long term (current) use of anticoagulants; Z79.899 Other long term (current) drug therapy
CPT/HCPCS: 36415; 71046; 80048; 82947; 83605; 83880; 85025; 86140; 87070; 87205; 87804; A9270-GY; J1815-GY; J1956; U0002

== ENCOUNTER 2021-12-23 09:45 | Inpatient (IN) | payer BC, MEDICARE ==
[2021-12-23 10:30] LABS: CHLORIDE,CL 100 mEq/L (98-106); SODIUM,NA 138 mEq/L (136-145)
[2021-12-23 10:35] LABS: HEMOGLOBIN A1C 12.4 % (4.8-5.6)
[2021-12-23] MEDS ORDERED: Glucagon,Human Recombinant 1 MG Vial IM PRN (14:08)
[2021-12-23] MEDS ORDERED: 50% Dextrose in Water 50 ML Syringe IVPUSH PRN (14:08)
[2021-12-23] MEDS ORDERED: Non-Formulary Medication 1 Each (Metolazone [Metolazone] 2.5 MG Tablet) PO PRN (14:23)
[2021-12-23] MEDS ORDERED: Albuterol 8 GM Inhaler INH PRN (14:23)
[2021-12-23] MEDS ORDERED: Melatonin 3 MG Tab PO PRN (14:23)
[2021-12-23] MEDS ORDERED: traZODone 50 MG Tab PO PRN (14:23)
[2021-12-23] MEDS ORDERED: Sodium Chloride 0.9% 10 ML Syringe FLUSH PRN (14:35)
[2021-12-23] MEDS ORDERED: LORazepam 0.5 MG Tab PO PRN (15:25)
[2021-12-23] MEDS ORDERED: Furosemide 20 MG/2 ML VIAL IVPUSH ONE (15:30)
[2021-12-23] MEDS: Insulin Lispro 100 Units/ML 3 ML Vial SUBCUT SCH ×2 (18:10→21:41)
[2021-12-23] MEDS: Apixaban 5 MG Tab PO SCH (19:43)
[2021-12-23] MEDS ORDERED: Pramipexole 0.5 MG Tab PO SCH (20:00)
[2021-12-23] MEDS ORDERED: Simvastatin 40 MG Tab PO SCH (20:00)
[2021-12-24] MEDS ORDERED: Furosemide 20 MG/2 ML VIAL IVPUSH SCH (05:00)
[2021-12-24] MEDS: Apixaban 5 MG Tab PO SCH (07:53)
[2021-12-24] MEDS: Insulin Lispro 100 Units/ML 3 ML Vial SUBCUT SCH ×2 (07:54→12:44)
[2021-12-24 08:00] VITALS: PULSE 70
[2021-12-24] MEDS ORDERED: Lisinopril 5 MG Tab PO SCH (08:00)
[2021-12-24] MEDS ORDERED: Metoprolol Succinate 100 MG Tab.ER PO SCH (08:00)
[2021-12-24] MEDS ORDERED: FLUoxetine 20 MG Cap PO SCH (08:00)
[2021-12-24] MEDS ORDERED: Tamsulosin 0.4 MG Cap.ER PO SCH (08:00)
[2021-12-24] MEDS ORDERED: Spironolactone 25 MG Tab PO SCH (08:00)
[2021-12-24] MEDS ORDERED: Metoprolol Succinate 25 MG Tab.ER PO SCH (08:00)
[2021-12-24] MEDS ORDERED: Furosemide 20 MG/2 ML VIAL IVPUSH ONE (12:45)
[2021-12-24 12:53] VITALS: BP 101/74
== END 2021-12-24 14:15 | DRG 380 ==
LOC: CC.MS 09:45 → CC.FCMC 09:45 → CC.MS 11:02 → UNDOADMIN 11:02 → CC.MS 13:57
PROVIDERS: ADMIT Physician Assistant Medical; ATTEND Nurse Practitioner Family
DX: E11.622 Type 2 diabetes mellitus with other skin ulcer (principal); I11.0 Hypertensive heart disease with heart failure; E11.51 Type 2 diabetes mellitus with diabetic peripheral angiopathy without gangrene; R60.0 Localized edema; L97.909 Non-pressure chronic ulcer of unspecified part of unspecified lower leg with unspecified severity; R06.02 Shortness of breath; I83.028 Varicose veins of left lower extremity with ulcer other part of lower leg; L97.829 Non-pressure chronic ulcer of other part of left lower leg with unspecified severity; I48.91 Unspecified atrial fibrillation; Z96.649 Presence of unspecified artificial hip joint; I49.9 Cardiac arrhythmia, unspecified; E78.00 Pure hypercholesterolemia, unspecified; K11.20 Sialoadenitis, unspecified; J43.9 Emphysema, unspecified; I50.9 Heart failure, unspecified; M19.90 Unspecified osteoarthritis, unspecified site; E11.40 Type 2 diabetes mellitus with diabetic neuropathy, unspecified; F32.A Depression, unspecified; Z85.46 Personal history of malignant neoplasm of prostate; Z79.01 Long term (current) use of anticoagulants; Z95.0 Presence of cardiac pacemaker; Z79.4 Long term (current) use of insulin; Z79.899 Other long term (current) drug therapy; Z88.8 Allergy status to other drugs, medicaments and biological substances; Z85.51 Personal history of malignant neoplasm of bladder; Z90.49 Acquired absence of other specified parts of digestive tract
CPT/HCPCS: 29581; 36415; 70490; 71046; 80048; 80053; 82550; 82947; 83036; 83615; 83880; 84484; 85025; 85379; 86140; 87070; 87077; 87186; 93005; 99223; 99239; A9270-GY; J1815-GY; J1940

== ENCOUNTER 2022-01-12 14:46 | Emergency (ER) | payer BC ==
[2022-01-12 15:06] VITALS: PULSE 71
[2022-01-12] MEDS ORDERED: Sodium Chloride 0.9% 10 ML Syringe FLUSH PRN (16:11)
[2022-01-12 17:19] LABS: CORONAVIRUS COVID-19 NAA NEGATIVE (NEGATIVE)
[2022-01-12 17:27] VITALS: BP 108/76
== END 2022-01-12 17:45 | disposition left against medical advice (07) ==
LOC: CC.ED 14:46
DX: I11.0 Hypertensive heart disease with heart failure (principal); I50.9 Heart failure, unspecified; E78.00 Pure hypercholesterolemia, unspecified; I48.91 Unspecified atrial fibrillation; E11.9 Type 2 diabetes mellitus without complications; M19.90 Unspecified osteoarthritis, unspecified site; Z88.8 Allergy status to other drugs, medicaments and biological substances; Z79.899 Other long term (current) drug therapy; Z79.4 Long term (current) use of insulin; Z79.01 Long term (current) use of anticoagulants; Z20.822 Contact with and (suspected) exposure to COVID-19
CPT/HCPCS: 0240U; 36415; 71046; 80053; 81003; 82272; 83605; 83735; 83880; 84484; 85025; 85379; 93005; 99284; 99285-25

== ENCOUNTER 2022-01-13 14:08 | Inpatient (IN) | payer BC, MEDICARE ==
[2022-01-13] MEDS ORDERED: Melatonin 3 MG Tab PO PRN (15:22)
[2022-01-13] MEDS ORDERED: Albuterol 8 GM Inhaler INH PRN (15:22)
[2022-01-13] MEDS ORDERED: Take Home: LORazepam 0.5 MG Tab, 2 Tab Pack PO PRN (15:22)
[2022-01-13] MEDS ORDERED: Glucagon,Human Recombinant 1 MG Vial IM PRN (15:30)
[2022-01-13] MEDS ORDERED: 50% Dextrose in Water 50 ML Syringe IVPUSH PRN (15:30)
[2022-01-13] MEDS ORDERED: Furosemide 40 MG/4 ML VIAL IVPUSH ONE ×2 (15:40→22:30)
[2022-01-13 16:16] LABS: HEMOGLOBIN A1C 12.7 % (4.8-5.6)
[2022-01-13] MEDS ORDERED: Oxyquinoline/Emollient 0.3% Oint 4 OZ Canister TOP PRN (16:54)
[2022-01-13] MEDS ORDERED: TEMAZEPAM 15 MG PO PRN (16:57)
[2022-01-13] MEDS: Insulin Lispro 100 Units/ML 3 ML Vial SUBCUT SCH ×3 (17:35→21:20)
[2022-01-13] MEDS: Apixaban 5 MG Tab **PTOM PO SCH (19:33)
[2022-01-13] MEDS: Simvastatin 40 MG Tab **PTOM PO SCH (19:35)
[2022-01-13] MEDS: PRAMIPEXOLE DI HCL 1.5 MG PO SCH (19:36)
[2022-01-13] MEDS ORDERED: POTASSIUM CHLORIDE 20 MEQ PO SCH (20:00)
[2022-01-13] MEDS ORDERED: Furosemide 20 MG/2 ML VIAL IVPUSH ONE (22:00)
[2022-01-14] MEDS: SPIRONOLACTONE 25 MG PO SCH (07:32)
[2022-01-14] MEDS: Tamsulosin 0.4 MG Cap.ER **PTOM PO SCH (07:33)
[2022-01-14] MEDS: LISINOPRIL 2.5 MG PO SCH (07:33)
[2022-01-14] MEDS: Apixaban 5 MG Tab **PTOM PO SCH ×2 (07:33→19:30)
[2022-01-14] MEDS: FLUOXETINE 20 MG PO SCH (07:35)
[2022-01-14] MEDS: Aspirin 81 MG Tab.EC PO SCH (07:37)
[2022-01-14] MEDS ORDERED: POTASSIUM CHLORIDE 20 MEQ PO SCH (08:00)
[2022-01-14] MEDS: Insulin Lispro 100 Units/ML 3 ML Vial SUBCUT SCH ×6 (08:12→20:02)
[2022-01-14] MEDS: Furosemide 40 MG/4 ML VIAL IVPUSH SCH ×2 (13:03→19:34)
[2022-01-14 17:56] LABS: CORONAVIRUS COVID-19 NAA NEGATIVE (NEGATIVE)
[2022-01-14] MEDS: PRAMIPEXOLE DI HCL 1.5 MG PO SCH (19:30)
[2022-01-14] MEDS: Simvastatin 40 MG Tab **PTOM PO SCH (19:31)
[2022-01-14] MEDS ORDERED: METOPROLOL SUCCINATE 100 MG PO SCH (20:00)
[2022-01-14] MEDS ORDERED: cefTRIAXone 1 GM Vial IVPUSH SCH (21:30)
[2022-01-14] MEDS ORDERED: Azithromycin 500 MG in Sodium Chloride 0.9% 250 ML IV SCH (21:30)
[2022-01-14] MEDS ORDERED: Albuterol/Ipratropium 3.0-0.5 MG/3 ML Neb Soln NEB PRN (22:43)
[2022-01-15] MEDS: Aspirin 81 MG Tab.EC PO SCH (08:12)
[2022-01-15] MEDS: Furosemide 40 MG/4 ML VIAL IVPUSH SCH ×2 (08:12→15:50)
[2022-01-15] MEDS: Insulin Lispro 100 Units/ML 3 ML Vial SUBCUT SCH ×6 (08:12→22:00)
[2022-01-15] MEDS ORDERED: Temazepam 15 MG Cap PO PRN (08:21)
[2022-01-15] MEDS: Tamsulosin 0.4 MG Cap.ER PO SCH (08:39)
[2022-01-15] MEDS: Spironolactone 25 MG Tab PO SCH (08:39)
[2022-01-15] MEDS: FLUoxetine 20 MG Cap PO SCH (08:40)
[2022-01-15] MEDS: Apixaban 5 MG Tab PO SCH ×2 (08:40→19:55)
[2022-01-15] MEDS: Lisinopril 5 MG Tab PO SCH (08:40)
[2022-01-15] MEDS: FLUOXETINE 20 MG PO SCH (10:16)
[2022-01-15] MEDS: LISINOPRIL 2.5 MG PO SCH (10:17)
[2022-01-15] MEDS: Tamsulosin 0.4 MG Cap.ER **PTOM PO SCH (10:17)
[2022-01-15] MEDS: SPIRONOLACTONE 25 MG PO SCH (10:18)
[2022-01-15] MEDS: Apixaban 5 MG Tab **PTOM PO SCH (10:18)
[2022-01-15] MEDS: Potassium Chloride 10 MEQ Tab.ER PO SCH (17:29)
[2022-01-15] MEDS ORDERED: Metoprolol Succinate 100 MG Tab.ER PO SCH (20:00)
[2022-01-15] MEDS ORDERED: cefTRIAXone 1 GM Vial IVPUSH SCH (20:00)
[2022-01-15] MEDS ORDERED: Simvastatin 40 MG Tab PO SCH (20:00)
[2022-01-15] MEDS ORDERED: Azithromycin 500 MG in Sodium Chloride 0.9% 250 ML IV SCH (20:00)
[2022-01-15] MEDS ORDERED: Pramipexole 0.5 MG Tab PO SCH (20:00)
[2022-01-16] MEDS: Insulin Lispro 100 Units/ML 3 ML Vial SUBCUT SCH ×3 (07:57→12:16)
[2022-01-16] MEDS: Furosemide 40 MG/4 ML VIAL IVPUSH SCH (07:59)
[2022-01-16] MEDS: Tamsulosin 0.4 MG Cap.ER PO SCH (08:00)
[2022-01-16] MEDS: Lisinopril 5 MG Tab PO SCH (08:00)
[2022-01-16] MEDS: Spironolactone 25 MG Tab PO SCH (08:00)
[2022-01-16] MEDS: FLUoxetine 20 MG Cap PO SCH (08:00)
[2022-01-16] MEDS: Potassium Chloride 10 MEQ Tab.ER PO SCH (08:00)
[2022-01-16] MEDS: Aspirin 81 MG Tab.EC PO SCH (08:00)
[2022-01-16] MEDS: Apixaban 5 MG Tab PO SCH (08:00)
[2022-01-16 12:17] VITALS: BP 121/74; PULSE 79
== END 2022-01-16 13:59 | disposition home or self-care (01) | DRG 194 ==
LOC: UNDOADMOB 14:08 → CC.MS 14:08 → OBSVTOIN 01-14 21:10
PROVIDERS: ADMIT Physician Assistant Medical; ATTEND Nurse Practitioner Family
DX: I13.0 Hypertensive heart and chronic kidney disease with heart failure and stage 1 through stage 4 chronic kidney disease, or unspecified chronic kidney disease (principal); I48.11 Longstanding persistent atrial fibrillation; I50.43 Acute on chronic combined systolic (congestive) and diastolic (congestive) heart failure; J96.01 Acute respiratory failure with hypoxia; N17.9 Acute kidney failure, unspecified; I73.9 Peripheral vascular disease, unspecified; J18.0 Bronchopneumonia, unspecified organism; E87.6 Hypokalemia; I87.8 Other specified disorders of veins; I25.10 Atherosclerotic heart disease of native coronary artery without angina pectoris; Z20.822 Contact with and (suspected) exposure to COVID-19; E11.42 Type 2 diabetes mellitus with diabetic polyneuropathy; J43.9 Emphysema, unspecified; F32.A Depression, unspecified; N18.31 Chronic kidney disease, stage 3a; E11.22 Type 2 diabetes mellitus with diabetic chronic kidney disease; E78.5 Hyperlipidemia, unspecified; Z79.899 Other long term (current) drug therapy; Z79.52 Long term (current) use of systemic steroids; Z91.14 Patient's other noncompliance with medication regimen; Z79.4 Long term (current) use of insulin; Z87.19 Personal history of other diseases of the digestive system; Z79.01 Long term (current) use of anticoagulants; Z90.49 Acquired absence of other specified parts of digestive tract; Z98.890 Other specified postprocedural states; Z90.89 Acquired absence of other organs; Z90.79 Acquired absence of other genital organ(s)
CPT/HCPCS: 0240U; 36415; 71045; 71046; 71250; 80048; 82947; 83036; 83605; 84484; 85025; 86140; 87040; 96374; 96376; 97110-GP; 97161-GP; 97530-GP; A9270-GY; G0378; J0456; J0696; J1815-GY; J1940; J7050

== ENCOUNTER 2022-02-22 11:10 | Emergency (ER) | payer BC, MEDICARE ==
[2022-02-22] MEDS ORDERED: Sodium Chloride 0.9% 10 ML Syringe FLUSH PRN (11:12)
[2022-02-22] MEDS ORDERED: Acetaminophen/HYDROcodone 325-5 MG Tab PO ONE (11:27)
[2022-02-22] MEDS ORDERED: 50% Dextrose in Water 50 ML Syringe IVPUSH PRN ×2 (12:18→14:32)
[2022-02-22] MEDS ORDERED: Insulin Regular, Human 100 Units/ML 3 ML Vial IV ONE (12:18)
[2022-02-22] MEDS ORDERED: Glucagon,Human Recombinant 1 MG Vial IM PRN ×2 (12:18→14:32)
[2022-02-22] MEDS ORDERED: Calcium Gluconate 10% 1 GM/10 ML SDV IVPUSH ONE (12:19)
[2022-02-22] MEDS ORDERED: Furosemide 40 MG/4 ML VIAL IVPUSH ONE (12:38)
[2022-02-22 13:36] VITALS: PULSE 70
[2022-02-22] MEDS ORDERED: Insulin Regular, Human 100 Units/ML 3 ML Vial SUBCUT ONE (14:32)
[2022-02-22 15:01] VITALS: BP 106/70
== END 2022-02-22 15:24 ==
LOC: CC.ED 11:10
DX: E11.22 Type 2 diabetes mellitus with diabetic chronic kidney disease (principal); I13.0 Hypertensive heart and chronic kidney disease with heart failure and stage 1 through stage 4 chronic kidney disease, or unspecified chronic kidney disease; E11.621 Type 2 diabetes mellitus with foot ulcer; N18.32 Chronic kidney disease, stage 3b; I50.43 Acute on chronic combined systolic (congestive) and diastolic (congestive) heart failure; Z79.4 Long term (current) use of insulin; R07.9 Chest pain, unspecified; E87.5 Hyperkalemia; E87.1 Hypo-osmolality and hyponatremia; E78.00 Pure hypercholesterolemia, unspecified; E11.40 Type 2 diabetes mellitus with diabetic neuropathy, unspecified; Z20.822 Contact with and (suspected) exposure to COVID-19; Z88.8 Allergy status to other drugs, medicaments and biological substances; Z79.899 Other long term (current) drug therapy
CPT/HCPCS: 36415; 71045; 80053; 81001; 82947; 83880; 84484; 85025; 86140; 87635; 93005; 96374; 96375; 99284; 99285; J0610; J1815; J1940; U0002

== ENCOUNTER → 2022-03-16 | Day surgery (SDC) | payer BC, MEDICARE ==
[~2022-03-16] MED LIST changes: -Lactated Ringers 1,000 ML IV SCH; +Lidocaine 1% 30 ML SDV SUBCUT ONE; +Lidocaine 1% w/EPINEPHrine 100 ML, Sodium Chloride 0.9% 900 ML, Sodium Bicarbonate 10 MEQ INJECT ONE; -Midazolam 1 MG/ML 2 ML SDV IV ONE; -fentaNYL 100 MCG/2 ML SDV IV ONE
[2022-03-16 14:20] VITALS: BP 115/70; PULSE 72
== END ==
LOC: CC.SDS 10:02
PROVIDERS: ATTEND Family Medicine
DX: I83.212 Varicose veins of right lower extremity with both ulcer of calf and inflammation (principal); I83.029 Varicose veins of left lower extremity with ulcer of unspecified site; I87.2 Venous insufficiency (chronic) (peripheral); E11.622 Type 2 diabetes mellitus with other skin ulcer; L97.909 Non-pressure chronic ulcer of unspecified part of unspecified lower leg with unspecified severity; Z88.8 Allergy status to other drugs, medicaments and biological substances; Z79.82 Long term (current) use of aspirin; Z79.4 Long term (current) use of insulin; Z79.899 Other long term (current) drug therapy
CPT/HCPCS: A4216

== ENCOUNTER → 2022-03-23 | Day surgery (SDC) | payer BC, MEDICARE ==
[2022-03-23] MEDS: Lidocaine 1% 30 ML SDV SUBCUT ONE (12:18)
[2022-03-23] MEDS: Lidocaine 1% w/EPINEPHrine 100 ML, Sodium Chloride 0.9% 900 ML, Sodium Bicarbonate 10 MEQ INJECT ONE ×3 (12:30)
[2022-03-23 13:27] VITALS: BP 126/75; PULSE 73
== END ==
LOC: CC.SDS 10:20
PROVIDERS: ATTEND Family Medicine
DX: I83.811 Varicose veins of right lower extremity with pain (principal)
CPT/HCPCS: A4216; J7030

== ENCOUNTER 2022-04-22 14:05 | Inpatient (IN) | payer BC, MEDICARE ==
[2022-04-22 14:56] LABS: CHLORIDE,CL 82 mEq/L (98-106); SODIUM,NA 131 mEq/L (136-145)
[2022-04-22 15:01] LABS: ESTIMATED GFR 20 mL/min (>=60)
[2022-04-22] MEDS ORDERED: Sodium Chloride 0.9% 1,000 ML IV ONE ×2 (15:16→18:35)
[2022-04-22] MEDS ORDERED: cefTRIAXone 2 GM Vial IVPUSH ONE (15:56)
[2022-04-22] MEDS ORDERED: Sodium Chloride 0.9% 500 ML IV SCH (17:15)
[2022-04-22] MEDS ORDERED: Sodium Chloride 0.9% 1,000 ML IV SCH (18:15)
[2022-04-22] MEDS ORDERED: Melatonin 3 MG Tab PO PRN (19:31)
[2022-04-22] MEDS ORDERED: Ondansetron 4 MG/2 ML SDV IV PRN (19:31)
[2022-04-22] MEDS ORDERED: LORazepam 0.5 MG Tab PO PRN (19:31)
[2022-04-22] MEDS ORDERED: Glucagon,Human Recombinant 1 MG Vial IM PRN (19:31)
[2022-04-22] MEDS ORDERED: 50% Dextrose in Water 50 ML Syringe IVPUSH PRN (19:31)
[2022-04-22] MEDS ORDERED: traZODone 50 MG Tab PO PRN (19:31)
[2022-04-22] MEDS ORDERED: Acetaminophen 325 MG Tab PO PRN (19:31)
[2022-04-22] MEDS ORDERED: Temazepam 15 MG Cap PO PRN (19:31)
[2022-04-22] MEDS ORDERED: Albuterol 8 GM Inhaler INH PRN (19:31)
[2022-04-22] MEDS: Sodium Chloride 0.9% 1,000 ML IV SCH (19:44)
[2022-04-22] MEDS ORDERED: Bumetanide 1 MG Tab PO SCH (20:00)
[2022-04-22] MEDS ORDERED: Pramipexole 0.5 MG Tab PO SCH (20:00)
[2022-04-22] MEDS ORDERED: Piperacillin/Tazobactam 4.5 GM in Sodium Chloride 0.9% 100 ML IV ONE (20:00)
[2022-04-22] MEDS ORDERED: Insulin Glarg,Human.Rec.Analog 100 Unit/ML SUBCUT SCH (20:00)
[2022-04-22] MEDS: Apixaban 5 MG Tab PO SCH (20:55)
[2022-04-22] MEDS ORDERED: VANCOmycin 2 GM/400 ML 2 GM in Premix Bag 1 BAG IV ONE (21:00)
[2022-04-22] MEDS: Insulin Regular, Human 100 Units/ML 3 ML Vial SUBCUT SCH (21:09)
[2022-04-23] MEDS ORDERED: Melatonin 3 MG Tab PO PRN (00:25)
[2022-04-23] MEDS: Piperacillin/Tazobactam 3.375 GM in Sodium Chloride 0.9% 100 ML IV SCH ×2 (03:37→11:25)
[2022-04-23 03:46] VITALS: PULSE 70
[2022-04-23 07:36] LABS: CHLORIDE,CL 90 mEq/L (98-106); SODIUM,NA 136 mEq/L (136-145)
[2022-04-23 07:38] LABS: ESTIMATED GFR 21 mL/min (>=60)
[2022-04-23] MEDS: Apixaban 5 MG Tab PO SCH (07:45)
[2022-04-23] MEDS ORDERED: Lisinopril 5 MG Tab PO SCH (08:00)
[2022-04-23] MEDS: Insulin Regular, Human 100 Units/ML 3 ML Vial SUBCUT SCH ×3 (08:00→11:45)
[2022-04-23] MEDS ORDERED: FLUoxetine 20 MG Cap PO SCH (08:00)
[2022-04-23] MEDS ORDERED: Insulin Glarg,Human.Rec.Analog 100 Unit/ML SUBCUT SCH (08:00)
[2022-04-23] MEDS ORDERED: Aspirin 81 MG Tab.EC PO SCH (08:00)
[2022-04-23] MEDS ORDERED: Tamsulosin 0.4 MG Cap.ER PO SCH (08:00)
[2022-04-23] MEDS ORDERED: Bumetanide 1 MG Tab PO SCH (08:00)
[2022-04-23] MEDS ORDERED: Spironolactone 25 MG Tab PO SCH (08:00)
[2022-04-23] MEDS ORDERED: Simvastatin 40 MG Tab PO SCH (08:00)
[2022-04-23] MEDS: Sodium Chloride 0.9% 1,000 ML IV SCH (08:17)
[2022-04-23] MEDS: Potassium Chloride Riders 20 MEQ in Premix Bag 1 BAG IV SCH ×2 (11:18→13:45)
[2022-04-23 14:14] VITALS: BP 102/66
== END 2022-04-23 14:30 | DRG 720 ==
LOC: CC.ED 14:05 → CC.MS 18:49 → UNDOADMOB 18:55 → OBSVTOIN 19:25 → INTOOBSV 19:25
PROVIDERS: ADMIT Nurse Practitioner Family; ATTEND Nurse Practitioner Family
DX: A41.9 Sepsis, unspecified organism (principal); R65.20 Severe sepsis without septic shock; I50.43 Acute on chronic combined systolic (congestive) and diastolic (congestive) heart failure; N17.9 Acute kidney failure, unspecified; N18.4 Chronic kidney disease, stage 4 (severe); I95.9 Hypotension, unspecified; Z20.822 Contact with and (suspected) exposure to COVID-19; E78.00 Pure hypercholesterolemia, unspecified; I13.0 Hypertensive heart and chronic kidney disease with heart failure and stage 1 through stage 4 chronic kidney disease, or unspecified chronic kidney disease; J43.9 Emphysema, unspecified; M19.90 Unspecified osteoarthritis, unspecified site; I48.91 Unspecified atrial fibrillation; E11.22 Type 2 diabetes mellitus with diabetic chronic kidney disease; E11.42 Type 2 diabetes mellitus with diabetic polyneuropathy; Z96.649 Presence of unspecified artificial hip joint; E87.6 Hypokalemia; R77.8 Other specified abnormalities of plasma proteins; Z88.8 Allergy status to other drugs, medicaments and biological substances; Z79.82 Long term (current) use of aspirin; Z79.899 Other long term (current) drug therapy; Z95.0 Presence of cardiac pacemaker; Z90.49 Acquired absence of other specified parts of digestive tract
CPT/HCPCS: 36415; 71045; 80053; 80202; 81001; 83605; 83735; 83880; 84484; 85025; 86140; 87040; 87070; 87077; 87186; 93005; 96361; 96374; 97597-GP; 99223; 99238; 99285-25; A9270-GY; J0696; J1815-GY; J2543; J3370; J3480; J7030; J7040; U0002

== ENCOUNTER 2022-06-19 16:18 | Emergency (ER) | payer BC, MEDICARE ==
[2022-06-19 16:30] VITALS: BP 114/75; PULSE 71
[2022-06-19 16:43] LABS: CHLORIDE,CL 98 mEq/L (98-106); SODIUM,NA 138 mEq/L (136-145)
[2022-06-19 16:44] LABS: ESTIMATED GFR 44 mL/min (>=60)
[2022-06-19] MEDS ORDERED: Aspirin 81 MG Tab.Chew PO ONE (17:15)
== END 2022-06-19 18:46 ==
LOC: CC.ED 18:46
DX: R79.89 Other specified abnormal findings of blood chemistry (principal); I11.0 Hypertensive heart disease with heart failure; I50.9 Heart failure, unspecified; E11.9 Type 2 diabetes mellitus without complications; Z88.8 Allergy status to other drugs, medicaments and biological substances; Z79.899 Other long term (current) drug therapy; Z79.01 Long term (current) use of anticoagulants; Z79.4 Long term (current) use of insulin; Z90.49 Acquired absence of other specified parts of digestive tract; Z20.822 Contact with and (suspected) exposure to COVID-19
CPT/HCPCS: 36415; 71046; 80053; 83880; 84484; 85025; 85730; 93005; 99284; 99285; A9270-GY; U0002

== ENCOUNTER 2022-07-08 14:25 | Emergency (ER) | payer BC ==
[2022-07-08 14:37] VITALS: BP 128/80; PULSE 72
[2022-07-08] MEDS ORDERED: Take Home: Cyclobenzaprine 10 MG Tab, 4 Tab Pack PO ONE (15:15)
== END 2022-07-08 15:42 | disposition home or self-care (01) ==
LOC: CC.ED 14:25
DX: M25.512 Pain in left shoulder (principal); I11.0 Hypertensive heart disease with heart failure; I50.9 Heart failure, unspecified; E78.00 Pure hypercholesterolemia, unspecified; E11.9 Type 2 diabetes mellitus without complications; Z88.8 Allergy status to other drugs, medicaments and biological substances; Z79.899 Other long term (current) drug therapy; Z79.01 Long term (current) use of anticoagulants
CPT/HCPCS: 73030-LT; 99283; 99284; A9270-GY

== ENCOUNTER 2022-07-15 19:54 | Inpatient (IN) | payer BC, MEDICARE ==
[2022-07-15] MEDS ORDERED: Sodium Chloride 0.9% 10 ML Syringe FLUSH PRN (20:31)
[2022-07-15] MEDS ORDERED: Albuterol/Ipratropium 3.0-0.5 MG/3 ML Neb Soln NEB PRN (20:46)
[2022-07-15] MEDS ORDERED: Acetaminophen 650 MG Supp RECTAL PRN (20:46)
[2022-07-15] MEDS ORDERED: Ondansetron 4 MG/2 ML SDV IV PRN (20:46)
[2022-07-15] MEDS ORDERED: LORazepam 2 MG/ML Syringe IVPUSH PRN (20:46)
[2022-07-15] MEDS ORDERED: Acetaminophen 325 MG Tab PO PRN (20:46)
[2022-07-15] MEDS: HYDROmorphone 0.5 MG/0.5 ML Syringe IVPUSH PRN (22:07)
[2022-07-15] MEDS: traZODone 50 MG Tab PO SCH (22:08)
[2022-07-16] MEDS: Codeine/Promethazine 10-6.25 MG/5 ML Syrup 5 ML UD Cup PO PRN ×3 (02:41→17:40)
[2022-07-16] MEDS: HYDROmorphone 0.5 MG/0.5 ML Syringe IVPUSH PRN ×4 (04:42→23:11)
[2022-07-16] MEDS: fentaNYL 12 MCG/HR Transdermal Patch TRDERM SCH (10:10)
[2022-07-16] MEDS: fentaNYL 25 MCG/HR Transdermal Patch TRDERM SCH (10:10)
[2022-07-16] MEDS: Glycopyrrolate 0.2 MG/ML 2 ML SDV IVPUSH PRN ×2 (14:49→21:11)
[2022-07-16] MEDS: Pramipexole 0.5 MG Tab PO SCH (19:30)
[2022-07-16] MEDS: traZODone 50 MG Tab PO SCH (19:30)
[2022-07-16] MEDS ORDERED: Metoprolol Succinate 100 MG Tab.ER PO SCH (20:00)
[2022-07-16] MEDS: Haloperidol Lactate 2 MG/ML Oral Soln 15 ML Bottle PO PRN (21:10)
[2022-07-17] MEDS: LORazepam 2 MG/ML Syringe IVPUSH PRN ×3 (01:31→21:04)
[2022-07-17] MEDS: HYDROmorphone 0.5 MG/0.5 ML Syringe IVPUSH PRN ×3 (03:54→14:29)
[2022-07-17] MEDS: Glycopyrrolate 0.2 MG/ML 2 ML SDV IVPUSH PRN (04:06)
[2022-07-17] MEDS ORDERED: Glycopyrrolate 0.2 MG/ML SDV IVPUSH PRN (13:16)
[2022-07-17] MEDS: Pramipexole 0.5 MG Tab PO SCH (20:13)
[2022-07-17] MEDS: traZODone 50 MG Tab PO SCH (20:13)
[2022-07-17] MEDS: Nystatin Topical Powder 15 GM Bottle TOP SCH (20:14)
[2022-07-17] MEDS: Codeine/Promethazine 10-6.25 MG/5 ML Syrup 5 ML UD Cup PO PRN (21:05)
[2022-07-18] MEDS: HYDROmorphone 0.5 MG/0.5 ML Syringe IVPUSH PRN ×3 (00:49→16:00)
[2022-07-18] MEDS: LORazepam 2 MG/ML Syringe IVPUSH PRN ×3 (04:00→21:08)
[2022-07-18] MEDS ORDERED: Lidocaine 2% HCl 6 ML Jel ONE (04:09)
[2022-07-18] MEDS: Nystatin Topical Powder 15 GM Bottle TOP SCH ×2 (12:17→21:57)
[2022-07-18] MEDS: Pramipexole 0.5 MG Tab PO SCH (20:18)
[2022-07-18] MEDS: traZODone 50 MG Tab PO SCH (20:18)
[2022-07-19] MEDS: HYDROmorphone 0.5 MG/0.5 ML Syringe IVPUSH PRN ×4 (01:17→21:16)
[2022-07-19] MEDS: LORazepam 2 MG/ML Syringe IVPUSH PRN ×2 (03:22→23:30)
[2022-07-19] MEDS: Haloperidol Lactate 2 MG/ML Oral Soln 15 ML Bottle PO PRN ×2 (04:39→21:09)
[2022-07-19] MEDS: fentaNYL 12 MCG/HR Transdermal Patch TRDERM SCH (07:13)
[2022-07-19] MEDS: fentaNYL 25 MCG/HR Transdermal Patch TRDERM SCH (07:14)
[2022-07-19] MEDS: Nystatin Topical Powder 15 GM Bottle TOP SCH ×2 (07:51→20:29)
[2022-07-19] MEDS: traZODone 50 MG Tab PO SCH (20:29)
[2022-07-19] MEDS: Pramipexole 0.5 MG Tab PO SCH (20:29)
[2022-07-20 05:45] VITALS: BP 138/80; PULSE 72
[2022-07-20] MEDS: Nystatin Topical Powder 15 GM Bottle TOP SCH ×2 (07:49→22:49)
[2022-07-20] MEDS: HYDROmorphone 0.5 MG/0.5 ML Syringe IVPUSH PRN (09:53)
[2022-07-20] MEDS ORDERED: HYDROmorphone 0.5 MG/0.5 ML Syringe IVPUSH PRN (13:35)
[2022-07-20] MEDS: traZODone 50 MG Tab PO SCH (22:49)
[2022-07-20] MEDS: Morphine 2 MG/ML SYRINGE IVPUSH PRN (23:59)
[2022-07-21] MEDS: Pramipexole 0.5 MG Tab PO SCH ×2 (03:17→19:59)
[2022-07-21] MEDS: LORazepam 0.5 MG Tab PO PRN ×3 (04:16→21:00)
[2022-07-21] MEDS: Nystatin Topical Powder 15 GM Bottle TOP SCH ×2 (08:43→19:59)
[2022-07-21] MEDS: Lidocaine 2% HCl 6 ML Jel MM PRN ×3 (08:44→18:49)
[2022-07-21] MEDS ORDERED: HYDROmorphone 0.5 MG/0.5 ML Syringe IVPUSH PRN (10:27)
[2022-07-21] MEDS ORDERED: Lidocaine 5% 700 MG Patch TRDERM PRN (11:18)
[2022-07-21] MEDS: Codeine/Promethazine 10-6.25 MG/5 ML Syrup 5 ML UD Cup PO PRN (13:14)
[2022-07-21] MEDS: traZODone 50 MG Tab PO SCH (19:59)
[2022-07-21] MEDS: Morphine 2 MG/ML SYRINGE IVPUSH PRN (21:00)
[2022-07-22] MEDS: fentaNYL 25 MCG/HR Transdermal Patch TRDERM SCH (09:43)
[2022-07-22] MEDS: Nystatin Topical Powder 15 GM Bottle TOP SCH (09:55)
[2022-07-22] MEDS ORDERED: fentaNYL 12 MCG/HR Transdermal Patch TRDERM SCH (12:49)
[2022-07-22] MEDS ORDERED: HYDROmorphone 0.5 MG/0.5 ML Syringe IVPUSH PRN (12:49)
[2022-07-22] MEDS: fentaNYL 12 MCG/HR Transdermal Patch TRDERM SCH (12:59)
[2022-07-22] MEDS: Pramipexole 0.5 MG Tab PO SCH (19:36)
[2022-07-22] MEDS: traZODone 50 MG Tab PO SCH (19:36)
[2022-07-23] MEDS: Nystatin Topical Powder 15 GM Bottle TOP SCH ×3 (08:49→19:40)
[2022-07-23] MEDS: Pramipexole 0.5 MG Tab PO SCH (21:22)
[2022-07-23] MEDS: traZODone 50 MG Tab PO SCH (21:22)
[2022-07-23] MEDS: Morphine 2 MG/ML SYRINGE IVPUSH PRN (21:30)
== END 2022-07-23 23:35 | disposition expired | DRG 862 ==
LOC: CC.MS 20:27 → UNDOADMIN 20:27 → CC.MS 20:31
PROVIDERS: ADMIT Nurse Practitioner Family; ATTEND Nurse Practitioner Family
DX: Z51.5 Encounter for palliative care (principal); I26.99 Other pulmonary embolism without acute cor pulmonale; J18.9 Pneumonia, unspecified organism; I50.43 Acute on chronic combined systolic (congestive) and diastolic (congestive) heart failure; E78.5 Hyperlipidemia, unspecified; I27.20 Pulmonary hypertension, unspecified; I48.91 Unspecified atrial fibrillation; E66.01 Morbid (severe) obesity due to excess calories; Z68.41 Body mass index [BMI] 40.0-44.9, adult; E78.00 Pure hypercholesterolemia, unspecified; I11.0 Hypertensive heart disease with heart failure; J43.9 Emphysema, unspecified; E11.42 Type 2 diabetes mellitus with diabetic polyneuropathy; Z96.649 Presence of unspecified artificial hip joint; F32.A Depression, unspecified; Z90.49 Acquired absence of other specified parts of digestive tract; Z88.8 Allergy status to other drugs, medicaments and biological substances; Z79.82 Long term (current) use of aspirin; Z79.4 Long term (current) use of insulin; Z79.899 Other long term (current) drug therapy; Z85.828 Personal history of other malignant neoplasm of skin; Z90.79 Acquired absence of other genital organ(s); Z95.810 Presence of automatic (implantable) cardiac defibrillator; Z85.46 Personal history of malignant neoplasm of prostate
CPT/HCPCS: 51702; A9270-GY; J1170; J2060; J2270; J2405; J3490